=== PATIENT | female | born 1970 | race Caucasian/White ===

== ENCOUNTER 2022-02-27 12:44 | Outpatient (REF) | payer MEDICAID, SELFPAY ==
--- NOTE | ~2022-02-27 | XR_ITS ---
EXAMINATION: LUMBAR SPINE AND CERVICAL SPINE. CLINICAL INFORMATION: Cervical age or COMPARISON: None TECHNIQUE: Cervical spine 3 views. Lumbar spine 3 views. FINDINGS: Cervical spine: There is normal cervical lordosis. The vertebral heights and alignment is normal. There is loss of C3-C4, C4-C5 and C5-C6 disc heights with mild ventral and posterior cervical spondylosis. Rest the disc heights are normal. The craniovertebral junction and the C1-C2 alignment is normal. No visible acute fracture or dislocation seen. The prevertebral soft tissues are normal. XR/XR cervical spine 3V IMPRESSION: Degenerative disc changes C3-C4, C4-C5 and C5-C6 disc levels with ventral and dorsal spondylosis. No acute fracture or dislocation seen.
--- NOTE | ~2022-02-27 | XR_ITS ---
EXAMINATION: LUMBAR SPINE AND CERVICAL SPINE. CLINICAL INFORMATION: Cervical age or COMPARISON: None TECHNIQUE: Cervical spine 3 views. Lumbar spine 3 views. FINDINGS: Cervical spine: There is normal cervical lordosis. The vertebral heights and alignment is normal. There is loss of C3-C4, C4-C5 and C5-C6 disc heights with mild ventral and posterior cervical spondylosis. Rest the disc heights are normal. The craniovertebral junction and the C1-C2 alignment is normal. No visible acute fracture or dislocation seen. The prevertebral soft tissues are normal. XR/XR lumbar spine 2-3V IMPRESSION: Degenerative disc changes C3-C4, C4-C5 and C5-C6 disc levels with ventral and dorsal spondylosis. No acute fracture or dislocation seen.
== END 2022-02-27 12:45 | disposition home or self-care (01) ==
LOC: HO.XRAY 12:44
PROVIDERS: Absent Provider Family Medicine; PCP Family Medicine; Visit Provider Emergency Medicine
DX: M54.2 Cervicalgia (principal); M54.50 Low back pain, unspecified
CPT/HCPCS: 72040; 72100

== ENCOUNTER → 2022-03-30 11:27 | Outpatient (BNVA) | payer MEDICAID, SELFPAY | PROVIDERS: PCP Family Medicine; Visit Provider Internal Medicine | DX: M25.551 Pain in right hip (principal); M25.552 Pain in left hip; M25.561 Pain in right knee; M25.562 Pain in left knee; G89.29 Other chronic pain; Z86.19 Personal history of other infectious and parasitic diseases | CPT/HCPCS: 99202 ==

== ENCOUNTER 2022-12-23 04:47 | Emergency (ER) | payer MEDICAID, SELFPAY ==
--- NOTE | ~2022-12-23 | XR_ITS ---
EXAMINATION: XR RIBS, RIGHT CLINICAL INFORMATION: Pain COMPARISON: CTA chest 05/02/2019 TECHNIQUE: 3 views of the right ribs were obtained. FINDINGS: Lungs are clear. No consolidation, pneumothorax, or pleural effusion. The cardiomediastinal silhouette and pulmonary vasculature are normal. Osseous structures are unremarkable. Ribs are intact. No fractures are identified. XR/XR ribs RT min 3V w CXR1V IMPRESSION: Unremarkable examination.
[2022-12-23 05:07] VITALS: BP 126/72; PULSE 68; RESP 18; TEMP 36.5; O2SAT 98; BMI 26.6
[2022-12-23 05:48] LABS: Appearance Urine Clear; Color Urine Yellow; Glucose Urine UA Negative (Negative); Leukocyte Esterase Urine Negative (Negative); Nitrite Urine Negative (Negative); PH 6.5 (5.0-9.0); UMIC TRIGGER UACC YES; Urine Blood Trace (Negative); Urine Ketones Negative (Negative); Urine Protein Negative (Neg-Trace)
[2022-12-23 05:50] LABS: Bacteria Urine None Seen (None Seen); Hyaline Casts Urine 0-2 /LPF (0-2); RBC Urine 0-2 /HPF (0-2); Squamous Epithelial Cell Urine 0-2 /HPF (0-2); WBC Urine 0-5 /HPF (0-5)
[2022-12-23 07:17] LABS: MANUAL DIFF FLAG NO
[2022-12-23 07:18] LABS: Basophils Percent Auto 0.6 % (0-2); Eosinophils Absolute Auto 0.2 X10*3/uL (0.0-0.4); Eosinophils Percent Auto 4.7 % (0-4); Hematocrit 36.2 % (37.0-47.0); Imm Gran Abs Auto 0.02 X10*3/uL (0.00-0.03); Imm Gran Pct Auto 0.4 % (0.0-0.4); Lymphocytes Absolute Auto 1.5 X10*3/uL (1.2-4.9); Lymphocytes Percent Auto 30.3 % (20-40); Mean Corpuscular HGB Conc 33.1 g/dl (31.0-35.0); Mean Corpuscular Hemoglobin 30.8 pg (27.0-33.0); Mean Corpuscular Volume 93.1 fL (80.0-98.0); Mean Platelet Volume 10.1 fL (9.4-12.3); Monocytes Absolute Auto 0.5 X10*3/uL (0.1-1.2); Monocytes Percent Auto 10.2 % (2-11); Neutrophils Absolute Auto 2.6 x10*3/uL (2.0-8.3); Neutrophils Percent Auto 53.8 % (45-73); Platelet Count 170 X10*3/uL (160-400); Red Blood Count 3.89 X10*6/uL (4.20-5.50); Red Cell Distribution Width 11.2 % (11.0-16.0); White Blood Count 4.9 X10*3/uL (4.8-10.8)
[2022-12-23 07:35] LABS: Alanine Aminotransferase 17 U/L (0-31); Alkaline Phosphatase 49 U/L (39-117); Anion Gap 13 (12-20); Aspartate Amino Transferase 14 U/L (5-31); Bilirubin Total 0.6 mg/dL (0.0-1.0); Blood Urea Nitrogen 9 mg/dL (9-16); Calcium 9.3 mg/dL (8.4-10.2); Carbon Dioxide 27 mmol/L (22-29); Chloride 103 mmol/L (96-108); Creatinine Clr Calc Pharmacy 112.2; Estimated Glomerular Filt Rate > 60; Glucose Random 108 mg/dL (60-115); Potassium 3.9 mmol/L (3.3-5.1); Sodium 139 mmol/L (135-145); Total Protein 7.3 g/dL (6.5-8.0)
--- NOTE | 2022-12-23 08:07 | ECG_ITS ---
Test Reason : back pain Blood Pressure : / mmHG Vent. Rate : 061 BPM Atrial Rate : 061 BPM P-R Int : 170 ms QRS Dur : 092 ms QT Int : 444 ms P-R-T Axes : 007 049 036 degrees QTc Int : 446 ms Normal sinus rhythm Normal ECG When compared with ECG of 02-MAY-2019 13:44, No significant change was found Referred By: Madeline Kenney Electronically Signed By:ROBIN RODRIGUEZ MD
--- NOTE | 2022-12-23 08:15 | ED_ITS ---
HPI - Back Pain/Injury General Chief Complaint: Back Pain/Injury Stated Complaint: Lower right sided pain Time Seen by Provider: 12/23/22 08:01 Source: patient Mode of arrival: ambulatory Limitations: no limitations History of Present Illness HPI Narrative: 52 yo female with hx of Vit D deficiency, fibromyalgia, asthma, anemia here with c/o R flank and non pleuritic R posterior rib pain since Wednesday atraumatic. At this time no fevers, urinary symptoms, numbness, blood thinners, IVDA. States it hurts to move and walk. She has not had kidney stones in the past. No cough or shortness of breath. The patient did try a lidocaine patch without relief. No b/b incontnence no saddle anesthesia MD elicited complaint: other (R flank/posterior rib pain) Onset (ago): day(s) (3) Timing: constant Severity: moderate Similar Symptoms Previously: No Quality: aching, spasming and throbbing Location: right flank Radiation: none Exacerbating factors: movement Relieving factors: none Context: unknown Associated symptoms: denies other symptoms Treatments prior to arrival: other medications Work related injury: No Related Data Home Medications Medication Instructions Recorded Confirmed acetaminophen 650 mg/20.3 mL oral 650 mg PO QID PRN 03/30/22 solution albuterol sulfate 90 mcg/actuation 1 inh inhalation QID 03/30/22 aerosol inhaler (ProAir HFA) benzoyl peroxide 10 % topical 1 appl topical DAILY 03/30/22 cleanser cetirizine 10 mg capsule (Zyrtec) 10 mg PO DAILY PRN 03/30/22 cholecalciferol (vitamin D3) 50 50 mcg PO DAILY 03/30/22 mcg (2,000 unit) capsule clindamycin phosphate 1 % lotion 1 appl topical DAILY 03/30/22 cyclobenzaprine 10 mg tablet 10 mg PO BEDTIME 03/30/22 diclofenac sodium 1 % topical gel 2 g topical QID 03/30/22 duloxetine 60 mg capsule,delayed 60 mg PO DAILY 03/30/22 release (Cymbalta) fluticasone propionate 110 1 puff inhalation BID 03/30/22 mcg/actuation HFA aerosol inhaler gabapentin 100 mg capsule 100 mg PO DAILY 03/30/22 lidocaine 3.75 % topical cream 1 appl topical BID 03/30/22 metronidazole 500 mg tablet 500 mg PO BID 03/30/22 montelukast 10 mg tablet 10 mg PO DAILY 03/30/22 (Singulair) Previous Rx's Medication Instructions Recorded cyclobenzaprine 10 mg tablet 10 mg PO TID PRN muscle spasm #14 12/23/22 tabs Allergies Allergy/AdvReac Type Severity Reaction Status Date / Time shellfish derived Allergy Unknown SWELLING Verified 03/30/22 11:41 AND HIVES shrimp Allergy Unknown ITCHING/SWE Verified 03/30/22 11:41 LLING seafood Allergy Unknown Unknown Uncoded 03/30/22 11:41 Review of Systems Review of Systems: Constitutional : No Weight loss, No Fever, No Chills, ENT/Mouth : No Hearing loss, No Ear Pain, No Nasal Congestion, No Sinus Pain, No Hoarseness, No sore throat, No Rhinorrhea, No Swallowing Difficulty Cardiovascular : No Chest Pain, No SOB Respiratory : No Cough, No Dyspnea Gastrointestinal : No Nausea, No Vomiting, No Diarrhea, No abdominal Pain, No Hematochezia, No Melena Genitourinary : No Dysuria, No Urinary Frequency, No Hematuria, No Urinary Incontinence, Musculoskeletal : positive back pain Skin : No Skin Lesions, No rash Neuro : No Weakness, No Numbness, No Paresthesias, no loss of bowel or bladder incontinence, no saddle anesthesia [facility] Past Medical History Attestation statement: The following information was validated with the patient. Medical History Anemia Asthma Chronic arthralgias of knees and hips Depression H/o Lyme disease Social History Social History (Updated 12/23/22 @ 08:22 by Madeline Kenney DO) Patient Tobacco Use Status: Never used Tobacco Advance Directives: No Advance Directives Information Provided: No Physical Exam Vital Signs: Vital Signs: Last Vital Signs Temp 98.1 F 12/23/22 08:41 Pulse 68 12/23/22 08:41 Resp 16 12/23/22 08:41 BP 112/62 12/23/22 08:41 Pulse Ox 100 12/23/22 08:41 O2 Del Method Room Air 12/23/22 08:41 BMI result Body Mass Index 26.6 Appearance: Alert. Oriented X3. No acute distress. Eyes: Pupils equal, round and reactive to light. ENT: Pharynx normal. Neck: Normal inspection. Neck supple. CVS: Normal heart rate and rhythm. Pulses normal. Respiratory: No respiratory distress. Breath sounds normal. Abdomen: Soft and nontender. Back: ttp along R flank and R posterior ribs reproduces pain Skin: Skin warm and dry. Normal skin color. Normal skin turgor. Extremities: No lower extremity edema. No calf ttp Neuro: Oriented X 3. No motor deficit. No sensory deficit. Course Course Course Narrative: at this time feeling better workup negative stable for DC will treat with muscle relaxers and follow up with PCP normal xrays, UA, labs and no hydronephrosis Medications Administered Discontinued Medications Generic Name Dose Route Start Last Admin Trade Name Freq PRN Reason Stop Dose Admin Cyclobenzaprine HCl 10 mg 12/23/22 08:07 12/23/22 08:58 Cyclobenzaprine Hcl 10 Mg Tablet PO 12/23/22 08:08 10 mg ONCE ONE Administration Ketorolac Tromethamine 15 mg 12/23/22 08:07 12/23/22 08:59 Ketorolac Tromethamine 15 Mg/Ml Vial IVPUSH 12/23/22 08:08 15 mg ONCE ONE Administration Medical Decision Making Medical Decision Making [facility] Narrative: 52 yo female with hx of Vit D deficiency, fibromyalgia, asthma, anemia here with reproduceable R sided flank pain and rib pain - at this time it seems MSK in nature given hurts to touch and move. She has no risk factors for PE wells score is 0. She has no CP/SOB doubt ACS. will obtain basic labs, UA, xrays of R ribs and bedside US for hydronephrosis - IV toradol and flexeril. Differential Diagnosis Differential Diagnoses: The differential diagnosis associated with the presentation includes ureteral stones - less likely, MSK, strain, no hypoxia - not pleuritic no risk factors for PE - doubt VTE, Lab Data [facility] Lab Attestation statement: I reviewed the patient's lab results. 12/23/22 07:14 12/23/22 07:14 Labs: Lab Results 12/23/22 12/23/22 12/23/22 Range/Units 05:39 07:14 07:14 WBC 4.9 (4.8-10.8) X10*3/uL RBC 3.89 L (4.20-5.50) X10*6/uL Hgb 12.0 (12.0-16.0) g/dl Hct 36.2 L (37.0-47.0) % MCV 93.1 (80.0-98.0) fL MCH 30.8 (27.0-33.0) pg MCHC 33.1 (31.0-35.0) g/dl RDW 11.2 (11.0-16.0) % Plt Count 170 (160-400) X10*3/uL MPV 10.1 (9.4-12.3) fL Immature Gran % (Auto) 0.4 (0.0-0.4) % Neut % (Auto) 53.8 (45-73) % Lymph % (Auto) 30.3 (20-40) % [place] % (Auto) 10.2 (2-11) % Eos % (Auto) 4.7 H (0-4) % Baso % (Auto) 0.6 (0-2) % Lymph # (Auto) 1.5 (1.2-4.9) X10*3/uL [place] # (Auto) 0.5 (0.1-1.2) X10*3/uL Eos # (Auto) 0.2 (0.0-0.4) X10*3/uL Baso # (Auto) 0.0 (0.0-0.2) X10*3/uL Abs Immat Gran (auto) 0.02 (0.00-0.03) X10*3/uL Absolute Neuts (auto) 2.6 (2.0-8.3) x10*3/uL Absolute Nucleated RBC 0.000 (0.0-0.012) X10*3/uL Nucleated RBC % (auto) 0.0 (0.0-0.2) /100WBC Sodium 139 (135-145) mmol/L Potassium 3.9 (3.3-5.1) mmol/L Chloride 103 (96-108) mmol/L Carbon Dioxide 27 (22-29) mmol/L Anion Gap 13 (12-20) BUN 9 (9-16) mg/dL Creatinine 0.62 (0.5-1.4) mg/dL Estim Creat Clear Calc 112.2 Estimated GFR > 60 Random Glucose 108 (60-115) mg/dL Calcium 9.3 (8.4-10.2) mg/dL Total Bilirubin 0.6 (0.0-1.0) mg/dL AST 14 (5-31) U/L ALT 17 (0-31) U/L Alkaline Phosphatase 49 (39-117) U/L Total Protein 7.3 (6.5-8.0) g/dL Albumin 4.0 (3.5-5.0) g/dL Urine Color Yellow Urine Appearance Clear Urine pH 6.5 (5.0-9.0) Ur Specific [place] 1.010 (1.005-1.025) Urine Protein Negative (Neg-Trace) mg/dL Urine Glucose (UA) Negative (Negative) mg/dL Urine Ketones Negative (Negative) mg/dL Urine Blood Trace H (Negative) Urine Nitrite Negative (Negative) Ur Leukocyte Esterase Negative (Negative) Urine RBC 0-2 (0-2) /HPF Urine WBC 0-5 (0-5) /HPF Ur Squamous Epith Cells 0-2 (0-2) /HPF Urine Bacteria None Seen (None Seen) Hyaline Casts 0-2 (0-2) /LPF Independent Interpretation I performed an independent interpretation of an: EKG, Plain X-Ray (normal) and Ultrasound (no hydronephrosis) Interpretation: Rate: 61 Rhythm: NSR [place]: normal Normal P waves. Normal ALL. Normal QRS complex. ST T wave : normal no MIRIAM qTC: normal prior studies: normal The study has been interpreted contemporaneously by me. . Radiology Impression Discussion of test interpretation with radiology: I have reviewed the radiologist's reading. External Record Review External record reviewed: Office record Prescription Management I considered prescription management with: Other (flexeril ) Procedures Procedure Narrative Procedure Narrative: R renal bedside US - no hydronephrosis noted Discharge Plan Discharge Clinical Impression: Acute flank pain Patient Disposition: Home, Self-Care Instructions: Flank Pain (ED) Additional Instructions: return for fevers, vomiting, worsening pain, inability to eat or drink, pain with urination, no improvement in pain in the next few days. limit liting to 5lbs over 5 days. call your doctor for follow up of your pain. xrays normal, no signs of blockage of R kidney today, urine normal Prescriptions: New cyclobenzaprine 10 mg tablet 10 mg PO TID PRN (Reason: muscle spasm) Qty: 14 0RF No Action cyclobenzaprine 10 mg tablet 10 mg PO BEDTIME duloxetine [Cymbalta] 60 mg capsule,delayed release(DR/EC) 60 mg PO DAILY fluticasone propionate 110 mcg/actuation HFA aerosol inhaler 1 puff inhalation BID gabapentin 100 mg capsule 100 mg PO DAILY acetaminophen 650 mg/20.3 mL solution 650 mg PO QID PRN benzoyl peroxide 10 % cleanser 1 appl topical DAILY clindamycin phosphate 1 % lotion 1 appl topical DAILY lidocaine 3.75 % cream 1 appl topical BID metronidazole 500 mg tablet 500 mg PO BID montelukast [Singulair] 10 mg tablet 10 mg PO DAILY cholecalciferol (vitamin D3) 50 mcg (2,000 unit) capsule 50 mcg PO DAILY diclofenac sodium 1 % gel 2 g topical QID Rx Instructions: apply to single elbow, wrist or hand; for hand includes palm/fingers/back of hand Zyrtec 10 mg capsule 10 mg PO DAILY PRN albuterol sulfate [ProAir HFA] 90 mcg/actuation HFA aerosol inhaler 1 inh inhalation QID Referrals: [facility] [Primary Care Provider] - 1 day Stand Alone Forms: Work/School Release
[2022-12-23 08:41] VITALS: BP 112/62; PULSE 68; RESP 16; TEMP 36.7; O2SAT 100
[2022-12-23] MEDS: Cyclobenzaprine HCl 10 MG TABLET PO (08:58)
[2022-12-23] MEDS: Ketorolac Tromethamine 15 MG/ML VIAL IVPUSH (08:59)
--- NOTE | 2022-12-23 09:07 | PC.NURSE ---
PT alert and orient, calm, pleasant on approach, pain medication administered, pending effect.
== END 2022-12-23 10:23 | disposition home or self-care (01) ==
PROVIDERS: Emergency Provider Emergency Medicine
DX: R10.9 Unspecified abdominal pain (principal); R07.81 Pleurodynia; Z79.899 Other long term (current) drug therapy
CPT/HCPCS: 36415; 71101; 80053; 81001; 85025; 93005; 96374; 99284; 99285; J1885

== ENCOUNTER → 2022-12-23 08:07 | Outpatient (BNV) | payer MEDICAID, SELFPAY | PROVIDERS: Emergency Provider Emergency Medicine; Visit Provider Internal Medicine Cardiovascular Disease | DX: M54.9 Dorsalgia, unspecified (principal) | CPT/HCPCS: 93010 ==

== ENCOUNTER 2023-01-07 08:22 | Outpatient (AMB) | payer MEDICAID, SELFPAY ==
--- NOTE | 2023-01-07 08:24 | A.OFFVIS_ITS ---
Intake Vital Signs 01/07/23 08:27 Height 5 ft 6 in Weight 167 lb BMI 27.0 BP 118/62 Blood Pressure Location Lt brachial Position Sitting Respiration 18 Pulse 76 Pulse Source Pulse Oximeter Temp 97.6 F Temp Source Temporal Artery Scan Pulse Oximetry (%) 96 Oxygen Delivery Method Room Air Intake Visit Reasons: Joint Pain Intake Note: patient comes in for initial visit. Allergies shellfish derived Allergy (Unknown, Verified 01/07/23 08:30) SWELLING AND HIVES shrimp Allergy (Unknown, Verified 01/07/23 08:30) ITCHING/SWELLING seafood Allergy (Unknown, Uncoded 03/30/22 11:41) Unknown Medication List - Last Reconciled 01/07/23 by Juan Solomon MD acetaminophen 650 mg PO QID PRN albuterol sulfate 90 mcg/actuation (ProAir HFA) 1 inh inhalation QID benzoyl peroxide 10% 1 appl topical DAILY cetirizine (Zyrtec) 10 mg PO DAILY PRN cholecalciferol (vitamin D3) 50 mcg PO DAILY clindamycin phosphate 1% 1 appl topical DAILY cyclobenzaprine 10 mg PO TID PRN diclofenac sodium 1% 2 grams topical QID duloxetine (Cymbalta) 60 mg PO DAILY fluticasone propionate 110 mcg/actuation 1 puff inhalation BID gabapentin 100 mg PO DAILY lidocaine 3.75% 1 appl topical BID lidocaine 5% (Lidoderm) 1 patch topical DAILY montelukast (Singulair) 10 mg PO DAILY HPI HPI Comments History of Present Illness Details Patient presents for evaluation of widespread pains. She says they developed initially in her shoulders a year or so before she was diagnosed with Lyme disease in 2011. She describes a rash, rather large, on the left forearm and some chills with maybe some joint pain and swelling at the time. Within months after the treatment for Lyme disease she seemed to develope more widespread pains involving the neck, hands, elbows, lower back, middle back, legs, knees and feet. She does not really see any joint swelling. She has seen doctors about the neck where she has documented degenerative disc disease and osteoarthritis. Injections and surgery were discussed with her but she did not feel like she wanted to go with injections and the surgeons did not think she needed a neck operation. She was in the ER this spring with some sharp pain in the right lumbar region. She was treated for a painful rash on the right flank, thought to be shingles. She has had some physical therapy for her joint pain symptoms. 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 Her son is paid as a FIRE PROTECTION ENGINEER to take care of her. It does not sound like she is very physically active. She does walk around her apartment and does do some stretching every morning. Presently she also sees a psychotherapist. She is on Cymbalta 60 mg daily, gabapentin 100 mg t.i.d., and was recently prescribed cyclobenzaprine. She is having some night hot flashes and decrease in frequency of her menses so may be having menopause symptoms. [facility] Medical History (Updated 01/07/23 @ 09:16 by Juan Solomon MD) Anemia Asthma Chronic arthralgias of knees and hips Depression Fibromyalgia H/o Lyme disease Surgical History (Updated 12/31/22 @ 10:28 by Almaz Webber [facility]) No history of previous surgery Social History (Updated 12/23/22 @ 08:22 by Madeline Kenney DO) Patient Tobacco Use Status: Never used Tobacco Review of Systems Const Details: Fatigues easily with exercise and has more pain. A few lb weight gain over the last year so. Negative for appetite change, fever, chills, malaise Eyes Details: Intermittent headaches. Negative for vision change, dry eyes and dizziness ENT Details: Negative for hearing change, tinnitus, oral ulcer, nose bleeds and oral dryness. Card Details: Intermittent chest tightness and palpitations. She apparently has had a workup in Cardiology with ETT testing and echocardiogram. Recently negative for chest pain, edema and syncope Resp Details: Some exertional dyspnea at times attributed to asthma. Presently negative for SOB, cough and wheezing GI Details: Negative indigestion/heartburn, nausea, abdominal pain, bowel changes, diarrhea, constipation and bloody stool. Details: She is bothered by frequent urination. She was told she had irritable bladder problems. Negative for dysuria, hematuria, nocturia, decreased force/flow and genital discharge Skin/Breast Details: Recent shingles rash on the right flank. Some hair thinning over the last few years. She had acne when she was younger. Negative for itching, hives, Raynaud's symptoms, sun sensitivity, and skin cancer Neuro Details: Some numbness around the shingles rash. Some memory issues. Negative for epilepsy, palsy, stroke, changes in speech, tingling and weakness Psych Details: History of anxiety and depression stable with current treatment. Endo Details: Negative for polyuria and polydypsia [place]ville/Lymph Details: Negative for excessive bruising or bleeding. Physical Exam Vital Signs: Last Vital Signs Temp 97.6 F 01/07/23 08:27 Pulse 76 01/07/23 08:27 Resp 18 01/07/23 08:27 BP 118/62 01/07/23 08:27 Pulse Ox 96 01/07/23 08:27 Oxygen Delivery Method Room Air 01/07/23 08:27 BMI result Body Mass Index 27.0 APPEARANCE: Patient in no acute distress EYES no redness, pupils equal and reactive to light, eyelids normal EARS: External ear normal, canal clear and tympanic membrane normal. NOSE/SINUS: Airflow through both nares, no nasal discharge, no bleeding THROAT: Oral mucosa moist, no ulcerations NECK: No thyromegaly or masses, no adenopathy, trachea midline. HEART: Regulrar rhythm, S1-S2 heard, no murmurs, rubs or gallops. LUNG: Clear to percussion and auscultation ABD: Normal bowel sounds, no organomegaly, masses or tenderness. EXTREMITIES: No edema, no calf tenderness, normal peripheral pulses. NEURO: Oriented and alert x3. No focal weakness. Reflexes symmetric. Gait normal. SKIN: 2 slightly inflamed papules on the right flank. I do not really see any scalp lesions. There may be some slight thinning of the hair. No signs of Raynaud's phenomena. JOINT EXAM:.?? Cervical Spine: Mild pain with lateral flexion at 10 degrees or rotation at 30 degrees with some moderate posterior cervical muscle tenderness. Thoracic Spine:.? No scoliosis.? No tenderness on palpation. Lumbar Spine:.? Alignment normal.? Lumbar pain with flexion at 60 degrees with some paraspinal muscle tenderness, worse on the right Chest Wall:.? No tenderness, swelling, increased warmth or erythema. Hands:.? Normal pain-free range of motion. There is some slight tenderness at the base of the thumbs but there is no swelling appreciated there. Other joints are without tenderness, swelling, increased warmth or erythema. There is no thenar atrophy or sensory loss. Wrists:.? Right: Slight discomfort at the extremes of normal range of motion with some minimal dorsal tenderness but no swelling. Left: Normal pain-free range of motion with slight dorsal tenderness but no swelling, increased warmth or erythema. Elbows:. Normal pain-free range of motion without tenderness, swelling, increased warmth or erythema. Shoulders:.?? Mild to moderate pain with abduction 120 degrees or with extremes of rotation. No abductor weakness. There is mild anterior, subacromial and posterior tenderness. No abductor weakness or adenopathy. Hips:.? Full range of motion without pain. Hip bursa:.? No tenderness. Knees:.?? Normal pain-free range of motion with no crepitus. There is some slight medial compartment tenderness without effusion, soft tissue swelling, increased warmth or erythema.? Ankles:.? Normal pain-free range of motion without tenderness, swelling, increased warmth or erythema. Feet:.? There is bony enlargement and tenderness at the 1st MTP bilaterally. This is a bit more prominent on the right. There is also some mild hallux valgus deformity. There is no soft tissue swelling, redness or warmth. Tender points: Mild tenderness to digital palpation at the occiput, trapezius, second rib, lateral epicondyle, knees, greater trochanter and gluteal area bilaterally. ? Results Reviewed Results Reviewed: Laboratory Tests 03/15/19 12/23/22 12/23/22 11:30 07:14 07:14 WBC 4.9 Hgb 12.0 Creatinine 0.62 Iron 96 AST 14 ALT 17 [place] [address] XRay Report Signed with Li Patient: Alison Munoz MR#: [id number] : 1970 Acct:[id number] Age/Sex: 51 / F ADM Date: 02/27/[address]: Blair Jasso MD Ordering Physician: BLAIR JASSO MD Date of Service: 02/27/22 Procedure(s): XR lumbar spine 2-3V Accession Number(s): [id number] cc: BLAIR JASSO MD~ ADDENDUMExamination: Lumbar spine. Clinical information low back pain. COMPARISON: None. TECHNIQUE: 3 views lumbar spine. FINDINGS: There is normal lumbar lordosis. The vertebral heights, alignment and disc heights are normal. No visible acute fracture, dislocation or subluxation seen. No lytic process. The paravertebral soft tissues are normal. SI joints are symmetrical and unremarkable. IMPRESSION: Unremarkable lumbar spine exam. Addendum Dictated By: Kennedy Morrissey MD Addendum Signed By: <Electronically signed by Kennedy Morrissey MD in OV> 03/04/22 1612 DD/ TD/TT: / EXAMINATION: LUMBAR SPINE AND CERVICAL SPINE. CLINICAL INFORMATION: Cervical age or? COMPARISON: None? TECHNIQUE: Cervical spine 3 views. Lumbar spine 3 views.? FINDINGS: Cervical spine: There is normal cervical lordosis. The vertebral heights and alignment is normal. There is loss of C3-C4, C4-C5 and C5-C6 disc heights with mild ventral and posterior cervical spondylosis. Rest the disc heights are normal. The craniovertebral junction and the C1-C2 alignment is normal. No visible acute fracture or dislocation seen. The prevertebral soft tissues are normal.? XR/XR lumbar spine 2-3V IMPRESSION: Degenerative disc changes C3-C4, C4-C5 and C5-C6 disc levels with ventral and dorsal spondylosis. No acute fracture or dislocation seen. ? Dictated By: Kennedy Morrissey MD Signed By: <Electronically signed by Oneil Crouch [place] [address] XRay Report Signed with Addenda Patient: Alison Munoz MR#: [id number] : 1970 Acct:[id number] Age/Sex: 51 / F ADM Date: 02/27/[address]: Blair Jasso MD Ordering Physician: BLAIR JASSO MD Date of Service: 02/27/22 Procedure(s): XR cervical spine 3V Accession Number(s): [id number] cc: BLAIR JASSO MD~ In Assessment & Plan Assessment & Plan (1) Cervical osteoarthritis: Code(s): M47.812 - Spondylosis without myelopathy or radiculopathy, cervical region (2) Fibromyalgia: Code(s): M79.7 - Fibromyalgia Plan The patient has rather longstanding joint and muscle pains. On exam today there is no sign of an active inflammatory arthropathy. I suspect that has been the case for a number of years and with the multiple tender points this is likely a case of fibromyalgia. I do no think her symptoms are from Lyme Disease. Radiographs have documented some osteoarthritis in the cervical spine which of course is a separate process. She may also have some mild OA in the lumbar spine although the reading was normal. She can continue with PRN use of OTC analgesics such as acetaminophen and naproxen. I encouraged her to try to remain physically active. She tends to withdraw from physical activity which of course can lead to more deconditioning and poor functioning in physical activities. She should be doing stretching every day as well as gentle aerobic activities. I will check for some markers of inflammatory disease and a recheck on her TSH. Treatment options are limited. She is already on some Cymbalta and gabapentin. Given her disruption of sleep I think she could consider a nighttime increase in the gabapentin. This could be increased 100 mg every few weeks up to 600 mg in the evenings if needed. If sedation occurs at the higher doses it could be cut back to the previous dose. The gabapentin I think could be managed through the primary care office. I will not book her back for a follow-up unless joint swelling seems to occur. The. Orders: Orders Cyclic Citrullinated Peptide Today M47.812 - Spondylosis without myelopathy or radiculopathy, cervical region, M79.7 - Fibromyalgia C Reactive Protein Today M47.812 - Spondylosis without myelopathy or radiculopathy, cervical region, M79.7 - Fibromyalgia Rheumatoid Factor Today M47.812 - Spondylosis without myelopathy or radiculopathy, cervical region, M79.7 - Fibromyalgia Thyroid Stimulating Hormone Today M47.812 - Spondylosis without myelopathy or radiculopathy, cervical region, M79.7 - Fibromyalgia Erythrocyte Sedimentation Rate Today M47.812 - Spondylosis without myelopathy or radiculopathy, cervical region, M79.7 - Fibromyalgia MEI Reflex Titer and Pattern Today M47.812 - Spondylosis without myelopathy or radiculopathy, cervical region, M79.7 - Fibromyalgia Coding Level of Care Code New Pt Level 3 (62321) Diagnoses Cervical osteoarthritis M47.812 Fibromyalgia M79.7
[2023-01-07 08:27] VITALS: BP 118/62; PULSE 76; RESP 18; TEMP 36.4; O2SAT 96; BMI 27.0
== END 2023-01-07 09:22 | disposition home or self-care (01) ==
PROVIDERS: PCP Family Medicine; Visit Provider Internal Medicine Rheumatology
DX: M47.812 Spondylosis without myelopathy or radiculopathy, cervical region (principal); M79.7 Fibromyalgia
CPT/HCPCS: 99203

== ENCOUNTER → 2023-01-07 08:22 | Outpatient (BNVA) | payer MEDICAID, SELFPAY | PROVIDERS: PCP Family Medicine; Visit Provider Internal Medicine Rheumatology | DX: M47.812 Spondylosis without myelopathy or radiculopathy, cervical region (principal); M79.7 Fibromyalgia | CPT/HCPCS: 36415; 84443; 85652; 86038; 86140; 86200; 86431; 99202 ==

== ENCOUNTER 2023-01-07 09:37 | Outpatient (REF) | payer MEDICAID, SELFPAY ==
[2023-01-07 11:11] LABS: C Reactive Protein 0.18 mg/dL (< or = 0.50)
[2023-01-07 11:12] LABS: Rheumatoid Factor < 13.0 IU/mL (<15.0)
[2023-01-07 11:32] LABS: Thyroid Stimulating Hormone 1.49 uIU/mL (0.32-4.0)
[2023-01-07 11:33] LABS: Erythrocyte Sedimentation Rate 29 MM/HR (0-20)
[2023-01-12 12:13] LABS: Cyclic Citrullinated Peptide <16 UNITS
[2023-01-14 14:43] LABS: Anti Nuclear Antibody Screen NEGATIVE (NEGATIVE)
== END 2023-01-07 09:38 | disposition home or self-care (01) ==
LOC: HO.10HDL 09:37
PROVIDERS: Visit Provider Internal Medicine Rheumatology
DX: M47.812 Spondylosis without myelopathy or radiculopathy, cervical region (principal); M79.7 Fibromyalgia
CPT/HCPCS: 36415; 84443; 85652; 86038; 86140; 86200; 86431

== ENCOUNTER 2023-03-03 10:23 | Outpatient (REF) | payer MEDICAID, SELFPAY ==
--- NOTE | ~2023-03-03 | MM_ITS ---
EXAMINATION: MM SCREENING DIGITAL BREAST TOMOSYNTHESIS, BILATERAL CLINICAL INFORMATION: Screening. Asymptomatic. COMPARISON: Mammography: This study is compared with prior exams dating back to TECHNIQUE: Digital breast tomosynthesis is performed in both the craniocaudal and mediolateral oblique views along with computer-aided detection (CAD). Synthesized 2D images are generated from the tomosynthesis. FINDINGS: There are scattered areas of fibroglandular density (ACR BI-RADS breast composition Category b). There are no significant masses, abnormal calcifications, or other abnormalities. There are 2 tissue markers in the right breast from prior benign percutaneous biopsies. MM/MM tomosynthesis screening BI IMPRESSION: No mammographic evidence of malignancy. ASSESSMENT: BI-RADS BI-RADS 2 - Benign Findings RECOMMENDATION: Routine annual mammography screening. 1 year F/U This examination should not preclude the clinical evaluation of a suspicious palpable abnormality. This patient's information was entered into a reminder system with a target due date for their next mammogram.
== END 2023-03-03 10:24 | disposition home or self-care (01) ==
LOC: HO.MAMMO 10:23
PROVIDERS: PCP Family Medicine; Visit Provider Family Medicine
DX: Z12.31 Encounter for screening mammogram for malignant neoplasm of breast (principal)
CPT/HCPCS: 77063; 77067

== ENCOUNTER → 2023-03-03 10:45 | Outpatient (BNV) | payer MEDICAID, SELFPAY | PROVIDERS: PCP Family Medicine; Visit Provider Radiology Diagnostic Radiology | DX: Z12.31 Encounter for screening mammogram for malignant neoplasm of breast (principal) | CPT/HCPCS: 77063; 77067 ==

== ENCOUNTER 2023-06-17 08:39 | Outpatient (REF) | payer MEDICAID, SELFPAY ==
--- NOTE | ~2023-06-17 | XR_ITS ---
EXAMINATION: XR BILATERAL KNEES CLINICAL INFORMATION: Bilateral knee pain, no injury. She feels cracking and popping in her knees. COMPARISON: None available. TECHNIQUE: 3 views of the left knee. 5 views of the right knee. FINDINGS: Right Knee: Mild medial joint space narrowing. Trace joint effusion. Left Knee: Trace joint effusion. Mild medial joint space narrowing. XR/XR knee RT 3V IMPRESSION: Mild degenerative changes in the bilateral knees.
--- NOTE | ~2023-06-17 | XR_ITS ---
EXAMINATION: XR BILATERAL KNEES CLINICAL INFORMATION: Bilateral knee pain, no injury. She feels cracking and popping in her knees. COMPARISON: None available. TECHNIQUE: 3 views of the left knee. 5 views of the right knee. FINDINGS: Right Knee: Mild medial joint space narrowing. Trace joint effusion. Left Knee: Trace joint effusion. Mild medial joint space narrowing. XR/XR knee LT 3V IMPRESSION: Mild degenerative changes in the bilateral knees.
[2023-06-17 11:43] LABS: Cholesterol 147 mg/dL (<200); HDL Cholesterol 57 mg/dL (>40); LDL Cholesterol Calculated 81 mg/dL (<100); Triglycerides 47 mg/dL (<150)
[2023-06-17 11:51] LABS: Alanine Aminotransferase 13 U/L (0-31); Albumin Level 3.9 g/dL (3.5-5.0); Alkaline Phosphatase 47 U/L (39-117); Anion Gap 10 (12-20); Aspartate Amino Transferase 15 U/L (5-31); Bilirubin Total 0.3 mg/dL (0.0-1.0); Blood Urea Nitrogen 15 mg/dL (9-16); Calcium 8.8 mg/dL (8.4-10.2); Carbon Dioxide 31 mmol/L (22-29); Chloride 104 mmol/L (96-108); Estimated Glomerular Filt Rate > 60; Glucose Random 85 mg/dL (60-115); Potassium 3.7 mmol/L (3.3-5.1); Sodium 141 mmol/L (135-145); Total Protein 7.4 g/dL (6.5-8.0)
[2023-06-17 12:13] LABS: TSH reflex Free T4 1.87 uIU/mL (0.32-4.0)
[2023-06-17 12:23] LABS: Folate 6.9 ng/mL (> or = 4.0)
[2023-06-17 12:25] LABS: Vitamin B12 410 pg/mL (200-900)
[2023-06-17 12:28] LABS: Reflex LDLD? No
== END 2023-06-17 08:40 | disposition home or self-care (01) ==
LOC: HO.HHCL 08:39
PROVIDERS: Visit Provider Family Medicine
DX: M25.561 Pain in right knee (principal); M25.562 Pain in left knee; G89.29 Other chronic pain; M79.7 Fibromyalgia; E66.3 Overweight; L65.9 Nonscarring hair loss, unspecified; Z86.19 Personal history of other infectious and parasitic diseases
CPT/HCPCS: 36415; 73562; 80053; 80061; 82607; 82746; 84443

== ENCOUNTER 2023-07-06 17:20 | Outpatient (REF) | payer MEDICAID, SELFPAY ==
[2023-07-06 17:34] LABS: Appearance Urine Clear; Color Urine Yellow; Glucose Urine UA Negative (Negative); Leukocyte Esterase Urine Small (1+) (Negative); Nitrite Urine Negative (Negative); PH 6.5 (5.0-9.0); UMIC TRIGGER UA YES; Urine Blood Negative (Negative); Urine Ketones Negative (Negative); Urine Protein Trace mg/dL (Neg-Trace)
[2023-07-06 17:52] LABS: Bacteria Urine Trace (None Seen); Hyaline Casts Urine 0-2 /LPF (0-2); RBC Urine 0-2 /HPF (0-2)
[2023-07-07 02:13] LABS: CT PCR NOT DETECTED (Not Detect.); NG PCR NOT DETECTED (Not Detect.)
[2023-07-08 13:42] LABS: BV Int Neg Control Negative (Negative); BV Int Pos Control Positive (Positive)
== END 2023-07-06 17:21 | disposition home or self-care (01) ==
LOC: HO.HHCLNP 17:20
PROVIDERS: Visit Provider Family Medicine
DX: N89.8 Other specified noninflammatory disorders of vagina (principal); R30.0 Dysuria
CPT/HCPCS: 0353U; 81001; 87480; 87510; 87660

== ENCOUNTER 2023-11-16 09:50 | Outpatient (REF) | payer MEDICARE, MEDICAID, SELFPAY ==
[2023-11-16 12:49] LABS: Vitamin D 25-OH Total 24.3 ng/mL (>30)
[2023-11-17 03:34] LABS: HBc Num1 0.17 S/CO (0.00-0.79); HBsAGNum1 0.26 S/CO (0.00-0.99); HIV AB/AG Nonreactive (Nonreactive); HIV Num 1 0.05 S/CO (0.00-0.99); Hepatitis B Core Antibody Nonreactive (Nonreactive); Hepatitis B Surface Antigen Negative (Negative); ~HepC Num1 0.17 S/CO (0.00-0.79); ~Hepatitis B Surface Antibody NONREACTIVE (Nonreactive); ~Hepatitis C Antibody Nonreactive (Nonreactive)
[2023-11-17 03:35] LABS: Hepatitis A Antibody IgG REACTIVE (Nonreactive); ~Hepatitis A Antibody IgG 1.15 S/CO (0.00-0.99)
== END 2023-11-16 09:51 | disposition home or self-care (01) ==
LOC: HO.HHCL 09:50
PROVIDERS: Visit Provider Family Medicine
DX: Z01.84 Encounter for antibody response examination (principal); Z11.3 Encounter for screening for infections with a predominantly sexual mode of transmission; Z11.4 Encounter for screening for human immunodeficiency virus [HIV]; E55.9 Vitamin D deficiency, unspecified
CPT/HCPCS: 36415; 82306; 86704; 86706; 86708; 86803; 87340; 87389

== ENCOUNTER 2024-04-05 11:38 | Outpatient (REF) | payer OTHER, SELFPAY ==
--- NOTE | ~2024-04-05 | XR_ITS ---
EXAMINATION: XR SHOULDER, LEFT CLINICAL INFORMATION: Left shoulder pain COMPARISON: None available. TECHNIQUE: AP external rotation, Grashey, scapular Y, and axillary views of the left shoulder. FINDINGS: No evidence for acute fracture or dislocation. There is left glenohumeral joint space narrowing. No erosive process or abnormal soft tissue calcification seen. XR/XR shoulder LT min 2V IMPRESSION: No evidence for acute process. Left glenohumeral joint space narrowing. Electronically signed by: Galo Stacy MD 04/05/2024 04:21 PM EDT
== END 2024-04-05 11:39 | disposition home or self-care (01) ==
LOC: HO.HHCX 11:38
PROVIDERS: Visit Provider Family Medicine
DX: M25.512 Pain in left shoulder (principal); G89.29 Other chronic pain
CPT/HCPCS: 73030

== ENCOUNTER 2024-06-30 07:21 | Outpatient (REF) | payer OTHER, SELFPAY ==
--- NOTE | ~2024-06-30 | MR_ITS ---
CLINICAL HISTORY: chroninc pain severely limited rom MR left shoulder without gadolinium Comparison: None Findings: No acute fractures. No pathologic bone lesions. No significant arthritic changes. Type II acromion. No effusion. The supraspinatus, infraspinatus, subscapularis, and teres minor tendons are intact. The long head of biceps is intact. There is loss of visualization of the inferior glenohumeral ligament. Glenoid labrum is intact. IMPRESSION: 1. Inferior glenohumeral ligament tear. This document has been electronically signed by: August Gao MD on 07/01/2024 08:46:48
== END 2024-06-30 07:22 | disposition home or self-care (01) ==
LOC: HO.MRI 07:21
PROVIDERS: PCP Family Medicine; Visit Provider Family Medicine
DX: Z12.31 Encounter for screening mammogram for malignant neoplasm of breast (principal); M25.512 Pain in left shoulder
CPT/HCPCS: 73221; 77063; 77067

== ENCOUNTER 2024-07-14 10:26 | Outpatient (REF) | payer OTHER, SELFPAY ==
--- OUTSIDE RECORDS SUMMARY | 2024-07-14 11:08 | XMS_ITS | Encounter Summary ---
Author Organization [facility] Address [address] [place] [address] Care Team Providers Care Lighter Name Role Phone Gracy Reynolds MD Primary Care Provider [phone] Encounter Details Date Type Department Care Team (Late st Contact Info) Description 10/16/2022 Orders Only [facility] [address] [place] [address] [phone] Gracy Reynolds MD [address] [place] [address] [phone] Mixed stress and urge urinary incontinence (Primary Dx) Social History Tobacco Use Types Packs/Day Years Used Date Smoking Tobacco: Never Passive Smoke Exposure: Never Smokeless Tobacco: Never Depression Answer Date Recorded Patient Health Questionnaire-9 Score 17 09/15/2022 Depression Answer Date Recorded Patient Health Questionnaire-2 Score 6 09/15/2022 Comments Unknown Sex and Gender Information Value Date Recorded Sex Assigned at Female 04/13/2022 10:18 AM EDT Legal Sex Female 10:18 AM EDT Gender Identity Female 04/13/2022 10:18 AM EDT Sexual Orientation Straight 04/13/2022 10 :18 AM EDT COVID-19 Exposure Response Date Recorded In the last 10 days, have yo u been in contact with someone who was confirmed or suspected to have Coronavirus/COVID-19? No / Unsure 10/15/2022 8:52 AM EDT documented as of this encounter Plan of Treatment Upcoming Encounters Date Type Department Care Team (Late Contact Info) Description 08/16/2024 9:30 AM EST Office Visit [facility] [address] [place] [phone] Gracy Reynolds MD [address] [place] [address] documented as of this encounter Visit Diagnoses Diagnosis Mixed stress and urge urinary incontinence- Primary Mixed incontinence urge and stress (male)(female) documented in this encounter Additional Health Concerns Assessment Noted Time PHQ-9 Depression Total Score: 17 09/15/ 023 3:11 PM EDT documented as of this encounter Care Teams Lighter Relationship Specialty Start Date End Date Gracy Reynolds MD [address] [place] [address] PCP - General Family Medicine 01/27/22 Osmel Conn Tax AuditorHandbook Writer 01/04/24 documented as of this encounter
--- OUTSIDE RECORDS SUMMARY | 2024-07-14 11:08 | XMS_ITS | Encounter Summary ---
Author Organization [employer] [facility] Address [address] [place] [address] Care Team Providers Care Lead Manufacturing Engineering Tech Name Role Phone Gracy Reynolds MD Primary Care Provider [phone] Reason for Visit * Reason Onset Date Comments Nurse Triage 12/25/2022 Encounter Details Date Type Department Care Team ([facility] st Contact Info) Description 12/25/2022 Telephone [facility] [address], [place] [phone] Gracy Reynolds MD [address] [place] [address] Nurse Triage Social History Tobacco Use Types Packs/Day Years [...] suspected to have Coronavirus/COVID-19? No / Unsure 12/17/2022 8:55 AM EDT documented as of this encounter Miscellaneous Notes * Telephone Encounter - Yaz Dalal RN - 12/25/2022 1:13 PM EDT Triage call Pt reports being seen in [facility] 12/23 for backpain. Now Pt reports a numbness of the right side of abdomen that is weird . This numbness is not effecting mobility. Pt is able to walk, speech is good, use of upper extremities is good. Pt concerned about this abdominal numbness . Advised Pt to seek evaluation in Ed and to call for follow up apt. Pt agrees with this plan. Protocol Used: Neurologic Deficit (Adult) Protocol-Based Disposition: See in Office or Video Visit Today Video visit not offered Positive Triage Question: * Patient wants to be seen * All higher-acuity triage questions were negative Care Advice Discussed: * Reasons To Call Back - Symptoms do not go away within 10 to 15 minutes - You become worse * Telephone Encounter - Sierra Brown - 12/25/2022 1:00 PM EDT Symptom: Numbness Outcome: Transfer to a nurse or provider NOW! Reason: Numbness on only one side of body or face that started within the past 24 hours The caller accepted this outcome documented in this encounter Plan of Treatment Upcoming Encounters Date Type Department Care Team (Late st Contact Info) Description 08/16/2024 9:30 AM EST Office Visit [facility] [address] [place] [address] Gracy Reynolds MD [address] [place] [address] documented as of this encounter Visit Diagnoses Not on filedocumented in this encounter Additional Health Concerns Assessment Noted Time PHQ-9 Depression Total Score: 17 09/15/ 023 3:11 PM EDT documented as of this encounter Care Teams Lead Manufacturing Engineering Tech Relationship Specialty Start Date End Date Gracy Reynolds MD [address] [place] [id number] PCP - General Family Medicine 01/27/22 Osmel Conn Sky CapElevator Service Mechanic 01/04/24 documented as of this encounter
--- OUTSIDE RECORDS SUMMARY | 2024-07-14 11:08 | XMS_ITS | Encounter Summary ---
Author Organization [employer] Address [address] [place] [address] 7t [place] [address] Care Team Providers Care Dishing Machine Operator Name Role Phone Gracy Reynolds MD Primary Care Provider [phone] Reason for Referral * Consultation (Routine) - Authorized Specialty Diagnoses / Procedures Referred By Rogelio rogers Referred To Contact Orthopaedic Surgery Diagnoses Chronic left shoulder pain Gracy Reynolds MD [address] [place] [address] Phone: tel: fax: [facility] [address] [place] [address] Phone: tel: Referral ID Status Reason Start Date Expiration Date Visits Requested Visits Authorized [id number] Authorized Specialty Services Required 07/04/2024 07/04/2025 1 1 Encounter Details Date Type Department Care Team (Late st Contact Info) Description 07/04/2024 Orders Only [facility] [address] [place] [address] Gracy Reynolds MD [address] [place], [place] [phone] Chronic left shoulder pain (Primary Dx) Social History Tobacco Use Types Packs/Day Years Used Date Smoking Tobacco: Never Passive Smoke Exposure: Never Smokeless Tobacco: Never Alcohol Use Standard Drinks/Week Comments Never 0 (1 standard drink = 0.6 oz pur e alcohol) Depression Answer Date Recorded Patient Health Questionnaire-9 Score 0 11/16/2023 Patient Health Questionnaire-9 Score 0 11/16/2023 Last PHQ-9: Questionnaire Data Not on file 0 11/16/2023 Housing Stability Answer Date Recorded What is your housing situation today? I have francy hernandez 11/16/[address] you li ve. Do you have problems with any of the following? None of the above 11/16/2023 Food Insecurity Answer Date Recorded Within the past 12 months, y ou worried that your food would run out before you got money to buy more: Never True 11/16/2023 Within the past 12 months,th e food you bought just didn't last and you didn't have enough money to get more: Never True 09/2023 Transportation Answer Date Recorded In the past 12 months, has l ack of transportation kept you from medical appts, meetings, work or from getting things needed for daily living? No 11/16/2023 Utilities Answer Date Recorded In the past 12 months, has t he electric, gas, oil or water company threatened to shut off services in your home? No 11/16/2023 Depression Answer Date Recorded Patient Health Questionnaire-2 Score 0 11/16/2023 Comments Unknown Sex and Gender Information Value Date Recorded Sex Assigned at Female 04/13/2022 10:18 AM EDT Legal Sex Female 10:18 AM EDT Gender Identity Female 04/13/2022 10:18 AM EDT Sexual Orientation Straight 04/13/2022 10 :18 AM EDT documented as of this encounter Plan of Treatment Upcoming Encounters Date Type Department Care Team (Late st Contact Info) Description 08/16/2024 9:30 AM EST Office Visit [facility] [address] [place] [address] Gracy Reynolds MD [address] [place] [address] Scheduled Referrals Name Type Priority Associated Diagnoses Order Schedule Referral to Orthopaedic Surgery Outpatient Referral Routine Chronic left shoulder pain Expected: 07/04/2024 (Approximate), Expires: 07/04/2025 documented as of this encounter Visit Diagnoses Diagnosis Chronic left shoulder pain- Primary Pain in joint, shoulder region documented in this encounter Additional Health Concerns Assessment Noted Time PHQ-9 Depression Total Score: 0 11/16/19 24 9:15 AM EDT documented as of this encounter Care Teams Dishing Machine Operator Relationship Specialty Start Date End Date Gracy Reynolds MD [address] [place] [address] PCP - General Family Medicine 01/27/22 Osmel Conn Scraper Loader OperatorLift Mechanic 01/04/24 documented as of this encounter
--- OUTSIDE RECORDS SUMMARY | 2024-07-14 11:08 | XMS_ITS | Encounter Summary ---
Author Organization [facility] [facility] Address [address] [place] [address] 7t [place] [address] Care Team Providers Care Wrapper Cashier Name Role Phone Gracy Reynolds MD Primary Care Provider Encounter Details Date Type Department Care Team (Late st Contact Info) Description 12/03/2022 Orders Only [facility] [address] [place] [address] [phone] Jana Hooks LPN Social History Tobacco Use Types Packs/Day Years [...] suspected to have Coronavirus/COVID-19? No / Unsure 11/24/2022 8:51 AM EDT documented as of this encounter Plan of Treatment Upcoming Encounters Date Type Department Care Team (Late st Contact Info) Description 08/16/2024 9:30 AM EST Office Visit [facility] [address] [place] [address] [phone] Gracy Reynolds MD [address] [place] [address] [phone] documented as of this encounter Visit Diagnoses Not on filedocumented in this encounter Additional Health Concerns Assessment Noted Time PHQ-9 Depression Total Score: 17 023 3:11 PM EDT documented as of this encounter Care Teams Wrapper Cashier Relationship Specialty Start Date End Date Gracy Reynolds MD [address] [place] [address] PCP - General Family Medicine 01/27/22 Osmel Conn [employer] PrincipalEngineer Conductor 01/04/24 documented as of this encounter
--- OUTSIDE RECORDS SUMMARY | 2024-07-14 11:08 | XMS_ITS | Clinical Summary ---
Author Organization [facility] Address [address] [place] [address] Care Team Providers Care Hospital Superintendent Name Role Phone Unavailable Primary Care Provider Unavailabl e Source Comments PLEASE NOTE, if this patient is a minor, it may be UNLAWFUL to discuss sensitive information that is contained in these records (such as FAMILY PLANNING, MENTAL HEALTH or SUBSTANCE ABUSE) with the minor patient's parent or other person without the patient's specific authorization.[facility] Immunizations Name Administration Dates Next Due Moderna COVID-19 Vaccine, re d cap blue label, 12+ Primary Series 10/23/2020,09/25/2020 Social History Tobacco Use Types Packs/Day Years Used Date Smoking Tobacco: Never Assessed Social Connections Answer Date Recorded Social Connections and Isolation 0 11/12/2023 Financial Resource Strain Answer Date R ecorded Financial Resource Strain 0 2023 Stress Answer Date Recorded Stress 0 11/12/2023 Physical Activity Answer Date Recorded Physical Activity 0 11/12/2023 Food Insecurity Answer Date Recorded Food 0 11/12/2023 Transportation Needs Answer Date Record ed Transportation 0 11/12/2023 Housing Stability Answer Date Recorded Housing 0 11/12/2023 Safety and Environment Answer Date Gorge rded Safety 0 11/12/2023 Utilities Answer Date Recorded Utilities 0 11/12/2023 Employment Answer Date Recorded Employment 0 11/12/2023 Comments Unknown Sex and Gender Information Value Date Recorded Sex Assigned at Not on file Legal Sex Female 6:03 AM PDT Gender Identity Not on file Sexual Orientation Not on file Plan of Treatment Health Maintenance Due Date Last Done Comments Diabetes Screening 1972 HPV Screening 1972 Hepatitis C Screening 1972 Lipid Screening 1972 Pap + HPV 1972 Tobacco Screening 1972 HIV Screening 1987 Hypertension Screening (#1) 1990 Imm-Hepatitis B (1 of 3 - 19 + 3-dose series) 1991 Cervical Cancer Screening 1993 Pap Smear 1993 Breast Cancer Screening (Mammogram) 2012 CT Colonography 2017 Colonoscopy 2017 Colorectal Cancer Screening 2017 FIT/gFOBT 2017 Fecal DNA 2017 Flexible Sigmoidoscopy 2017 Imm-DTaP/Tdap/Td (2 - Td or Tdap) 07/10/2021 012, 08/24/2008 Imm-Zoster, Recombinant (1 of 2) 2022 Emz-MMGGK-89 ( season) 2024 021, 09/25/2020 Imm-Influenza (#1) 2024 05/03/2020, 0 03/09/2019, 05/04/2013, Additional history exists Alcohol and Drug Screen 06/14/2024 Depression Annual Screen 06/14/2024 Cervical Ablation/Cold-Knife Conization Discontinued Cervical Cryotherapy Discontinued Colposcopy Discontinued Endometrial Biopsy Discontinued Excision/Leep Discontinued HPV Genotyping Discontinued Vaginal Pap Discontinued Vulvoscopy Discontinued Insurance [place] MEDICAID
--- OUTSIDE RECORDS SUMMARY | 2024-07-14 11:08 | XMS_ITS | Encounter Summary ---
Author Organization [employer] Address [address] [facility] 7t [place] [address] Care Team Providers Care Java Software Name Role Phone Gracy Reynolds MD Primary Care Provider [phone] Reason for Visit * Reason Onset Date Comments Nurse Triage 07/04/2024 Encounter Details Date Type Department Care Team ([facility] st Contact Info) Description 07/04/2024 Telephone [facility] [address] [place], [place] [phone] Gracy Reynolds MD [address] [place] [address] Nurse Triage Social History Tobacco Use Types [...] encounter Miscellaneous Notes * Telephone Encounter - Blupippa Munoz - 07/04/2024 12:45 PM EST Symptom: Shoulder Pain - Not From Injury Outcome: Schedule an urgent appointment (within 1 hour) or talk to a nurse or provider soon Reason: Can't use the shoulder normally Please contact pt at [phone]. documented in this encounter Plan of Treatment Upcoming Encounters Date Type Department Care Team (Late st Contact Info) Description 08/16/2024 9:30 AM EST Office Visit [facility] [address] [place] [address] Gracy Reynolds MD [address] [place] [address] documented as of this encounter Visit Diagnoses Not on filedocumented in this encounter Additional Health Concerns Assessment Noted Time PHQ-9 Depression Total Score: 0 11/16/19 24 9:15 AM EDT documented as of this encounter Care Teams Java Software Relationship Specialty Start Date End Date Gracy Reynolds MD [address] [place] [address] PCP - General Family Medicine 01/27/22 Osmel Conn Claim AdministratorRecreational Sports Director 01/04/24 documented as of this encounter
--- OUTSIDE RECORDS SUMMARY | 2024-07-14 11:08 | XMS_ITS | Encounter Summary ---
Author Organization [employer] Address [address] [facility] 7t [place] [address] Care Team Providers Care Corridor Redevelopment Manager Name Role Phone Gracy Reyonlds MD Primary Care Provider [phone] Reason for Visit * Reason Onset Date Comments Call Back Request 07/04/2024 Encounter Details Date Type Department Care Team ([facility] Contact Info) Description 07/04/2024 Telephone [facility] [address] [place], [place] [phone] Gracy Reynolds MD [address] [place] [address] Call Back Request Social History Tobacco Use Types Packs/Day Years [...] encounter Miscellaneous Notes * Telephone Encounter - Ivelisse Merritt RN - 07/07/2024 10:55 AM EST Telephone call to pt to advise that PCP sent pain medication, meloxicam, to pharmacy on file. Pt states that the pain is unbearable, that she cannot sleep and cannot take this pain until my appt in August. Clarified with pt who stated she has an appt with the ortho surgeon in August. Advised her totry taking the pain medication that PCP prescribed and see if that helps and if not, to return to Walk in Clinic or ED. Reviewed hours of [facility] and also on-call nurse at [facility]. Pt asked what can ED do for me, it's just a torn ligament? Advised her unsure what the plan of care would be but if her painis so severe that it's important to seek reevaluation to see if anything has changed. Pt states leila not want to be on pain pills for 2 months until appt. She said she was on cancellation list but she expressed frustration and wants to be seen soon. She asked if referral could be made elsewherefor a sooner appt. Nurse advised her it is unclear whether this is possible based on her insurance and the fact that referral was already made but message can be sent to PCP. Pt verbalized understanding. -- Patient stated that she does not like take a pill. If she wants to take one, meloxicam is sent. * Telephone Encounter - Ivelisse Merritt RN - 07/04/2024 1:58 PM EST Telephone call to pt to advise that MRI results show glenohumeral ligament tear and that PCP made referral to orthopedic surgeon. Informed her that referral info would be mailed and that ortho officewill call in 1-2 weeks to schedule appt. Pt verbalized understanding and said that her shoulder pain is worse than when she saw PCP on 06/19/24, rated it 8/10 and said she is having trouble sleeping. Pt denies taking any medications for pain over the counter I don't take anything not prescribed . Advised her that message would be sent toPCP to advise on pain management/plan of care until ortho appt. Pt in agreement with plan. * Telephone Encounter - Ivelisse Merritt RN - 07/04/2024 12:32 PM EST ----- Message from Gracy Reynolds MD sent at 07/04/2024 12:20 PM EST ----- Please inform patient that MRI showed inferior glenohumeral ligament tear. Recommend seeing an orthopedist. I am sending a referral. * Telephone Encounter - Kendal Rivera - 07/04/2024 9:10 AM EST Tc from pt requesting a callback for an appointment in regards MRI to left shoulder as she can't hold pain and will like to know what steps PCP will be taken with her . [phone] documented in this encounter Plan of Treatment Upcoming Encounters Date Type Department Care Team (Late st Contact Info) Description 08/16/2024 9:30 AM EST Office Visit [facility] [address] [place] [address] Gracy Reynolds MD [address] [place] [address] documented as of this encounter Visit Diagnoses Not on filedocumented in this encounter Additional Health Concerns Assessment Noted Time PHQ-9 Depression Total Score: 0 11/16/19 9:15 AM EDT documented as of this encounter Care Teams Corridor Redevelopment Manager Relationship Specialty Start Date End Date Gracy Reynolds MD [address] [place] [address] PCP - General Family Medicine 01/27/22 Osmel Conn Senior Courtroom ClerkPathology Technician 01/04/24 documented as of this encounter
--- OUTSIDE RECORDS SUMMARY | 2024-07-14 11:08 | XMS_ITS | Encounter Summary ---
Author Organization [employer] Address [address] [facility] 7t [place] [address] Care Team Providers Care Diesel Technician Mechanic Name Role Phone Gracy Reynolds MD Primary Care Provider [phone] Reason for Visit * Reason Onset Date Comments ER Follow-up 12/24/2022 Encounter Details Date Type Department Care Team ([facility] st Contact Info) Description 12/24/2022 Telephone [facility] [address] [place], [place] [phone] Gracy Reynolds MD [address] [place] [address] ER Follow-up Social History Tobacco Use Types Packs/Day Years [...] encounter Miscellaneous Notes * Telephone Encounter - Sherrie Shah RN - 12/24/2022 11:03 AM EDT called pt to triage, spoke to pt. pt states seen ER at [facility] on 12/23 for right mid back pain and palpitations. pt states all studies done were negative and she was recommended to see PCP in follow up. pt states given muscle relaxers which help some, but nothing for pain. pt denies numbness, known injury, fevers, or other associated symptoms. given appt next Saturday 12/30 at 9:00 with Lizzeth Randle for exam and recheck. advised home care: rest, ice, heat, medications, and call back as needed. Protocol Used: Back Pain (Adult) Protocol-Based Disposition: See in Office or Video Visit within 2 Weeks Video visit not offered Positive Triage Question: * Back pain is a chronic symptom (recurrent or ongoing AND lasting > 4 weeks) * All higher-acuity triage questions were negative Care Advice Discussed: * Reassurance and Education - Back Pain * Cold or Heat * Sleep * Activity * Pain Medicines * Reasons To Call Back - Fever occurs - Numbness or weakness occurs, or bowel/bladder problems - Pain begins to shoot into the leg - Pain persists over 2 weeks - Pain becomes worse - You become worse * Telephone Encounter - Janna Griffith - 12/24/2022 10:32 AM EDT Patient calling to report ED visit on 12/23/22 at [facility]. Reports to be seen for back pain and neck pain, states still has pain. Patient advised will forward to team nurse for follow up. Please contact at [phone] documented in this encounter Plan of Treatment Upcoming Encounters Date Type Department Care Team (Late st Contact Info) Description 08/16/2024 9:30 AM EST Office Visit [facility] [address] [place] [phone] Gracy Reynolds MD [address] [place] [address] documented as of this encounter Visit Diagnoses Not on filedocumented in this encounter Additional Health Concerns Assessment Noted Time PHQ-9 Depression Total Score: 17 023 3:11 PM EDT documented as of this encounter Care Teams Diesel Technician Mechanic Relationship Specialty Start Date End Date Gracy Reynolds MD [address] [place] [address] PCP - General Family Medicine 01/27/22 Osmel Conn Home Health CaregiverSupervisor Research Shop 01/04/24 documented as of this encounter
--- OUTSIDE RECORDS SUMMARY | 2024-07-14 11:08 | XMS_ITS | Encounter Summary ---
Author Organization [facility] Address [address] [place] [address] Care Team Providers Care Records Analyst Name Role Phone Gracy Reynolds Primary Care Provider Unavailabl e Community, Pcp Primary Care Provider Unavailabl e Encounter Details Date Type Department Care Team Description 12/04/2015 [facility] [address] [place] [address] Abstract, Provider Social History Tobacco Use Types Packs/Day Years Used Date Smoking Tobacco: Never Assessed Sex Assigned at Date Recorded Not on file documented as of this encounter Plan of Treatment Not on file documented as of this encounter Visit Diagnoses Not on filedocumented in this encounter Care Teams Records Analyst Relationship Specialty Start Date End Date Gracy Reynolds PCP - General Family Practice 06/14/11 08/15/19 Community, Pcp PCP - General Internal Medicine 08/16/19 documented as of this encounter
--- OUTSIDE RECORDS SUMMARY | 2024-07-14 11:09 | XMS_ITS | Encounter Summary ---
Author Organization [employer] [facility] Address [address] [facility] 7t [place] [address] Care Team Providers Care Church Organist Name Role Phone Gracy Reynolds MD Primary Care Provider [phone] Reason for Visit * Reason Onset Date Comments call return 09/16/2022 Encounter Details Date Type Department Care Team ([facility] st Contact Info) Description 09/16/2022 Telephone [facility] [address] [place], [place] [phone] Gracy Reynolds MD [address] [place] [address] call return Social History Tobacco Use Types Packs/Day Years [...] suspected to have Coronavirus/COVID-19? No / Unsure 09/15/2022 8:51 AM EDT documented as of this encounter Miscellaneous Notes * Telephone Encounter - Carlito Sterling - 09/16/2022 10:54 AM EDT Tc from pt returning phone call. Pt states a call from the clinic was made but feature writer does not see any task of call. Please contact pt at [phone] documented in this encounter Plan of Treatment Upcoming Encounters Date Type Department Care Team (Late st Contact Info) Description 08/16/2024 9:30 AM EST Office Visit [facility] [address] [place] [address] Gracy Reynolds MD [address] [place] [address] documented as of this encounter Visit Diagnoses Not on filedocumented in this encounter Additional Health Concerns Assessment Noted Time PHQ-9 Depression Total Score: 17 023 3:11 PM EDT documented as of this encounter Care Teams Church Organist Relationship Specialty Start Date End Date Gracy Reynolds MD [address] [place] [address] PCP - General Family Medicine 01/27/22 Osmel Conn Customer Complaint Service SupervisorTransportation Modeler 01/04/24 documented as of this encounter
--- OUTSIDE RECORDS SUMMARY | 2024-07-14 11:09 | XMS_ITS | Encounter Summary ---
Author Organization [facility] Address [address] [place] [address] 7[address] [place] [address] Care Team Providers Care Disease Case Manager Rn Name Role Phone Gracy Reynolds MD Primary Care Provider [phone] Reason for Referral * Imaging (Routine) - Closed Specialty Diagnoses / Procedures Referred By Contac t Referred To Contact Radiology Diagnoses Breast cancer screening by mammogram Procedures BI Mammogram Screening Tomosynthesis Bilateral Gracy Reynolds MD [address] [place] [address] Phone: tel: fax: [address] Phone: tel: fax: Referral ID Status Reason Start Date Expiration Date Visits Re quested Visits Authorized [id number] Closed 06/19/2024 06/19/2025 1 1 Encounter Details Date Type Department Care Team (Latest Contact Info) Description 06/19/2024 3:30 PM EST Office Visit [facility] MEDICINE [address] [place] [address] [phone] Gracy Reynolds MD [address] [place], [place] [phone] Chronic left shoulder pain (Primary Dx); 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CMS/HCC); Degenerative disc disease, cervical; Onychomycosis; Breast cancer screening by mammogram; History of Lyme disease; Hot flashes, menopausal; Other cardiomyopathy (CMS/HCC); Vitamin D deficiency; Mixed stress and urge urinary incontinence; Overactive bladder Social History Tobacco Use Types Packs/Day Years [...] AM EDT documented as of this encounter Last Filed Vital Signs Vital Sign Reading Time Taken Comments Blood Pressure 138/80 06/19/2024 3:39 PM EST Pulse 71 06/19/2024 3:39 PM EST Temperature 36.2 ??C (97.1 ??F) 06/19/2024 3:39 PM ES T Respiratory Rate 16 06/19/2024 3:39 PM EST Oxygen Saturation - - Inhaled Oxygen Concentration - - Weight 76.3 kg (168 lb 3.2 oz) 06/19/2024 3:39 P M EST Height - - Body Mass Index 27.15 04/05/2024 8:57 AM EDT documented in this encounter Progress Notes * Gracy Reynolds MD - 06/19/2024 3:30 PM EST Subjective paulette Munoz is a 54 y.o. female who has asthma, Hx Lyme disease, and depression, and patient presents for left shoulder pain. Background: Our last encounter was 04/05/2024. Interval history: X-ray on 04/05/24 showed: No evidence for acute process. Left glenohumeral joint space narrowing. Patient requested a script for DME, TENS pads. Today: The pt reports left shoulder pain and associated neck and lower back pain. She can't shower, sleep,or lift her arm even though the x-ray doesn't show any tears or anything. She also has associated neck pain. She denies any numbness. Right- handed. No injury. She states topical medications are not effective for onychomycosis. Although she dislikes a medication, she is so desperate that she wants to try oral terbinafine. She says her asthma and UTI's are more controlled now. In terms of urinary incontinence, she requests wet wipes. Review of Systems Constitutional: Negative for activity change, appetite change and fever. Respiratory: Negative for shortness of breath. Cardiovascular: Negative for chest pain. Musculoskeletal: Positive for back pain and neck pain. Associated left shoulder pain Objective Vitals: 06/19/24 1539 BP: 138/80 Pulse: 71 Resp: 16 Temp: 97.1 ??F (36.2 ??C) TempSrc: Temporal Weight: 168 lb 3.2 oz (76.3 kg) Physical Exam Constitutional: General: She is not in acute distress. Appearance: Normal appearance. She is not ill-appearing. HENT: Head: Normocephalic and atraumatic. Mouth/Throat: Mouth: Mucous membranes are moist. Eyes: Extraocular Movements: Extraocular movements intact. Pupils: Pupils are equal, round, and reactive to light. Cardiovascular: Rate and Rhythm: Normal rate and regular rhythm. Heart sounds: No murmur heard. Pulmonary: Effort: Pulmonary effort is normal. No respiratory distress. Breath sounds: Normal breath sounds. No wheezing or rhonchi. Musculoskeletal: Comments: No obvious deformity of bilateral shoulders. Tender globally. Decreased ROM (abduction, flexion, and internal rotation). Positive impingement. Normal electrical wirer strength. Neurovascularly intact. Skin: General: Skin is warm. Neurological: Mental Status: She is alert. Mental status is at baseline. Psychiatric: Mood and Affect: Mood normal. Results: Lab Results Component Value Date NA 141 06/17/2023 K 3.7 06/17/2023 CL 104 06/17/2023 CO2 31 (H) 06/17/2023 BUN 15 06/17/2023 CREATININE 0.65 06/17/2023 CRCLCALCPH 112.2 12/23/2022 EGFR >60 06/17/2023 GLUCOSE 85 06/17/2023 TOTALBILIRUB 0.3 06/17/2023 AST 15 06/17/2023 ALT 13 06/17/2023 TOTPROTEIN 7.4 06/17/2023 ALB 3.9 06/17/2023 ALP 47 06/17/2023 Lab Results Component Value Date TRIG 47 06/17/2023 CHOL 147 06/17/2023 LDLCHOLCAL 81 06/17/2023 HDL 57 06/17/2023 Lab Results Component Value Date HGBA1C 5.0 02/02/2022 Lab Results Component Value Date WBC 4.9 12/23/2022 HGB 12.0 12/23/2022 HCT 36.2 (L) 12/23/2022 PLT 170 12/23/2022 MCV 93.1 12/23/2022 The 10-year ASCVD risk score (Munir NEWMAN, et al., 2019) is: 1.1% Values used to calculate the score: Age: 54 years Sex: Female Is Non- : No Diabetic: No Tobacco smoker: No Systolic Blood Pressure: 138 mmHg Is BP treated: No HDL Cholesterol: 57 mg/dL Total Cholesterol: 147 mg/dL Screening and Health Care Maintenance: PHQ-2/9 Score: Patient Health Questionnaire-9 Score: 0 (11/16/2023 9:15 AM) Patient Health Questionnaire-2 Score: 0 (11/16/2023 9:15 AM) Thoughts that you would be better off or hurting yourself in some way: Not at all (11/16/2023 9:15 AM) NERIS-7 Score: No data recorded Health Maintenance Due Topic Date Due Colorectal Cancer Screening Never done Hepatitis B Vaccines (1 of 3 - 19+ 3-dose series) Never done Assessment/Plan Problem List Items Addressed This Visit Degenerative disc disease, cervical - she has tried acupuncture, PT, and chiropractor - she has tried NSAIDs, APAP, and gabapentin, but patient dislikes medications - MRI in August 2021 showed foraminal stenosis to a moderate degree at C5-C6. She has disc degenerative changes across C3-C6. There is no spinal cord compression. - following with [facility] in [place] previously and was referred to neurosurgeon - seen by neurosurgeon, Dr. Ramsey, at [facility] in October 2021. Impression was that her symptoms go way beyondwhat the right C6 nerve can account for. She not only has symptoms in the right upper extremity, but also the left and also nonspecific diffuse pain in the neck, lower back, lower extremities, headaches, etc. Patient was explained that in such situations, operating with a goal of releasing the right C6 nerve root is not likely to translate into any meaningful improvement overall. 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CMS/HCC) - seen by Dr. Solomon - her pain is likely due to fibromyalgia, rather than Lyme disease - continue duloxetine - continue acupuncture - continue gabapentin Cardiomyopathy (CMS/HCC) Relevant Orders Basic Metabolic Panel Lipid Panel with Reflex to Direct LDL Vitamin D deficiency Relevant Orders Vitamin D, 25-Hydroxy, Total, Immunoassay Mixed stress and urge urinary incontinence - seen by UroGYN in the past for pelvic organ prolapse - prescribe bed pads - pt does not want to try any medication - exercise pelvic floor muscle - she requests DME: wet wipes Overactive bladder - seen by UroGYN in November 2022 - continue Kegel exercise - pt has been using pantyliners. Script has been written for DME. - patient requests script for wet wipes History of Lyme disease - Dx 2009 - pt developed heart conduction abnormality, which seems to have resolved - no significant inflammatory arthritis Hot flashes, menopausal Relevant Orders CBC auto differential TSH with Reflex to Free T4 Onychomycosis - she was unable to receive a topical medication (urea cream) because it was not covered by her insurance - she is willing to try oral antifungal due to severe disease - discussed about side effect of terbinafine. Will check hepatic panel 3-4 weeks after starting it and after the treatment Relevant Medications terbinafine (LamISIL) 250 MG tablet Other Relevant Orders Hepatic Function Panel Chronic left shoulder pain - Primary - XR showed no tears or fractures in her shoulder -pt will get an MRI -She was referred to PT but she admits she never went because she thinks she can do the same exercises at home Relevant Orders MR Shoulder w/o Contrast Right Other Visit Diagnoses Breast cancer screening by mammogram Relevant Orders BI Mammogram Screening Tomosynthesis Bilateral Allergies Allergen Reactions Cat Dander Iodine Unknown Shellfish Allergy Itching LOBSTER Other reaction(s): itching, swelling Current Outpatient Medications Medication Instructions albuterol (2.5 MG/3ML) 0.083% nebulizer solution INHALE CONTENTS OF 1 VIAL VIA NEBULIZER EVERY 4 HOURS IF NEEDED FOR WHEEZING OR SHORTNESS OF BREATH (MAXIMUM 4/DAY) Benzoyl Peroxide Wash 5 % external wash APPLY TO AFFECTED AREA TOPICALLY EVERY DAY cholecalciferol VITAMIN D (VITAMIN D-3) 50 mcg, Oral, Daily DULoxetine (CYMBALTA) 60 mg, Oral, Daily EPINEPHrine (EPIPEN) 0.3 mg, Injection, Once as needed, Inject into upper leg. Call 911 after use. lidocaine (Lidoderm) 5 % patch PLACE 1 PATCH ONTO THE SKIN DAILY. REMOVE & DISCARD PATCH [id number] HOURS OR DIRECTED BY Mometasone Furoate (Asmanex HFA) 100 MCG/ACT aerosol Take 1 puff twice a day. Rinse mouth after each use. terbinafine (LAMISIL) 250 mg, Oral, Daily Ventolin HFA 108 (90 Base) MCG/ACT inhaler INHALE 2 PUFFS EVERY 4 (FOUR) HOURS IF NEEDED FOR WHEEZING OR SHORTNESS OF BREATH. Follow-up: As scheduled or sooner if any problem arises. Scribe Attestation: Bernardino Macdonald, am serving as a scribe to document services personally performed by Gracy Reynolds MD,based on the patient's response to questions by provider and provides statements to me. Physicians Attestation: Gracy Macdonald, have reviewed the information by the scribe, Margot Fournier, for accuracy and agree with its content. documented in this encounter Miscellaneous Notes * Assessment & Plan Note - Gracy Reynolds MD - 06/25/2024 11:13 AM ESTAssociated Problem(s): Mixed stress and urge urinary incontinence - seen by UroGYN in the past for pelvic organ prolapse - prescribe bed pads - pt does not want to try any medication - exercise pelvic floor muscle - she requests DME: wet wipes * Assessment & Plan Note - Gracy Reynolds MD - 06/19/2024 5:14 PM ESTAssociated Problem(s): Overactive bladder - seen by UroGYN in November 2022 - continue Kegel exercise - pt has been using pantyliners. Script has been written for DME. - patient requests script for wet wipes * Assessment & Plan Note - Gracy Reynolds MD - 06/19/2024 5:09 PM ESTAssociated Problem(s): History of Lyme disease - Dx 2009 - pt developed heart conduction abnormality, which seems to have resolved - no significant inflammatory arthritis * Assessment & Plan Note - Gracy Reynolds MD - 06/19/2024 5:07 PM ESTAssociated Problem(s): Onychomycosis - she was unable to receive a topical medication (urea cream) because it was not covered by her insurance - she is willing to try oral antifungal due to severe disease - discussed about side effect of terbinafine. Will check hepatic panel 3-4 weeks after starting it and after the treatment * Assessment & Plan Note - Bernardino Pierre - 06/19/2024 4:09 PM ESTAssociated Problem(s): 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CMS/HCC) - seen by Dr. Solomon - her pain is likely due to fibromyalgia, rather than Lyme disease - continue duloxetine - continue acupuncture - continue gabapentin * Assessment & Plan Note - Bernardino Pierre - 06/19/2024 4:09 PM ESTAssociated Problem(s): Degenerative disc disease, cervical - she has tried acupuncture, PT, and chiropractor - she has tried NSAIDs, APAP, and gabapentin, but patient dislikes medications - MRI in August 2021 showed foraminal stenosis to a moderate degree at C5-C6. She has disc degenerative changes across C3-C6. There is no spinal cord compression. - following with [facility] in [place] previously and was referred to neurosurgeon - seen by neurosurgeon, Dr. Ramsey, at [facility] in October 2021. Impression was that her symptoms go way beyondwhat the right C6 nerve can account for. She not only has symptoms in the right upper extremity, but also the left and also nonspecific diffuse pain in the neck, lower back, lower extremities, headaches, etc. Patient was explained that in such situations, operating with a goal of releasing the right C6 nerve root is not likely to translate into any meaningful improvement overall. * Assessment & Plan Note - Bernardino Pierre - 06/19/2024 4:08 PM ESTAssociated Problem(s): Chronic left shoulder pain - XR showed no tears or fractures in her shoulder -pt will get an MRI -She was referred to PT but she admits she never went because she thinks she can do the same exercises at home documented in this encounter Plan of Treatment Upcoming Encounters Date Type Department Care Team (Late st Contact Info) Description 08/16/2024 9:30 AM EST Office Visit [facility] MEDICINE [address] [place] [address] Gracy Reynolds MD [address] [place] [address] Scheduled Orders Name Type Priority Associated Diagnoses Orde r Schedule Basic Metabolic Panel Lab Routine Other cardiomyopathy (CMS/HCC) Expected: 06/19/2024 (Approximate), Expires: 06/19/2025 Hepatic Function Panel Lab Routine Onychomycosis Expected: 06/19/2024 (Approximate), Expires: 06/19/2025 Vitamin D, 25-Hydroxy, Total, Immunoassay Lab Routine Vitamin D deficiency Expected: 06/19/2024 (Approximate), Expires: 06/19/2025 CBC auto differential Lab Routine Hot flashes, menopausal Expected: 06/19/2024 (Approximate), Expires: 06/19/2025 TSH with Reflex to Free T4 Lab Routine Hot flashes, menopausal Expected: 06/19/2024 (Approximate), Expires: 06/19/2025 Lipid Panel with Reflex to Direct LDL Lab Routine Other cardiomyopathy (CMS/HCC) Expected: 06/19/2024 (Approximate), Expires: 06/19/2025 documented as of this encounter Procedures Procedure Name Priority Date/Time Associated Diagnosis Comments MR SHOULDER WO CONTRAST LEFT Routine 07/01/2024 8:46 AM EST BI MAMMOGRAM SCREENING TOMOSYNTHESIS BILATERAL Routine 06/30/2024 7:45 AM EST Breast cancer screening by mammogram documented in this encounter Results * MR Shoulder w/o Contrast Left (07/01/2024 8:46 AM EST) Anatomical Region Laterality Modality Upper Extremities, Shoulder Left Magn etic Resonance 07/01/2024 8:46 AM EST Narrative 07/01/2024 8:47 AM EST ? [facility] ?[address] ?[place] [address] ? Magnetic Resonance Report ? Signed ? Patient: Alexander,Iris ?MR#: [id number] ?? 81 ? : 1970 ?Acct:[id number] ? Age/Sex: 54 / F ?ADM Date: 01/17/25 ? Loc: HO.MRI ? Attending Dr: Gracy Reynolds MD ? Ordering Physician: Gracy Reynolds MD ?? Date of Service: 06/30/24 ?? Procedure(s): MR shoulder LT wo con ?? Accession Number(s): [id number] ? cc: Gracy Reynolds MD ? CLINICAL HISTORY: chroninc pain severely limited rom ? MR left shoulder without gadolinium ? Comparison: None ? Findings: ?? No acute fractures. No pathologic bone lesions. ?? No significant arthritic changes. ?? Type II acromion. ?? No effusion. ? The supraspinatus, infraspinatus, subscapularis, and teres minor tendons ?? are intact. ? The long head of biceps is intact. ?? There is loss of visualization of the inferior glenohumeral ligament. ?? Glenoid labrum is intact. ? IMPRESSION: ?? 1. Inferior glenohumeral ligament tear. ? This document has been electronically signed by: August Gao MD on ?? 07/01/2024 08:46:48 ? Dictated By: ?August Gao MD ? Signed By: ?<Electronically signed by August Gao MD in OV> ?07/01/24 0847 ? DD/ 5 ? TD/TT: 07/01/24845 ? Wood Carver Hand: ? Procedure Note Barron Owens - 07/01/2024 [place] [address] Magnetic Resonance Report Signed Patient: Carrol Munoz#: [id number] 81 : 1970Acct:[id number] Age/Sex: 54 / FADM Date: 06/30/24 Loc: HO.MRI Attending Dr: Gracy Reynolds MD Ordering Physician: Gracy Reynolds MD Date of Service: 06/30/24 Procedure(s): MR shoulder LT wo con Accession Number(s): [id number] cc: Gracy Reynolds MD CLINICAL HISTORY: chroninc pain severely limited rom MR left shoulder without gadolinium Comparison: None Findings: No acute fractures. No pathologic bone lesions. No significant arthritic changes. Type II acromion. No effusion. The supraspinatus, infraspinatus, subscapularis, and teres minor tendons are intact. The long head of biceps is intact. There is loss of visualization of the inferior glenohumeral ligament. Glenoid labrum is intact. IMPRESSION: 1. Inferior glenohumeral ligament tear. This document has been electronically signed by: August Gao MD on 07/01/2024 08:46:48 Dictated By: August Gao MD Signed By: <Electronically signed by August Gao MD in OV> 07/01/2447 DD/ 5 TD/TT: 07/01/24845 Wood Carver Hand: us Gracy Reynolds MD IMG MRI PROCEDURES Final Result * BI Mammogram Screening Tomosynthesis Bilateral (06/30/2024 7:45 AM EST) Anatomical Region Laterality Modality Breast Bilateral Mammography 06/30/2024 7:45 AM EST Narrative 07/09/2024 1:45 PM EST ? [facility] ?[address] ?[place] [address] ? Mammography Report ? Signed ? Patient: Alexander,Iris ?MR#: [id number] ?? 81 ? : 1970 ?Acct:[id number] ? Age/Sex: 54 / F ?ADM Date: 01/17/25 ? Loc: HO.MRI ? Attending Dr: Gracy Reynolds MD ? Ordering Physician: Gracy Reynolds MD ?Results: 2Benign F ?? indings ? Date of Service: /17/25 ?Follow Up: 1 Year From Orig ?? inal Mammogram ? Procedure(s): MM tomosynthesis screening BI ?? Accession Number(s): [id number] ? cc: Gracy Reynolds MD ? EXAMINATION: ?? MM SCREENING DIGITAL BREAST TOMOSYNTHESIS, BILATERAL ? CLINICAL INFORMATION: ? Screening. Asymptomatic. ? COMPARISON: ?? Mammography: Comparison is made with available priors ? TECHNIQUE: ?? Digital breast mammography with tomosynthesis is performed in both the ?? craniocaudal and mediolateral oblique views along with computer-aided ?? detection (CAD). ? FINDINGS: ?? There are scattered areas of fibroglandular density (ACR BI-RADS breast ?? composition Category b). ?? Right breast marker clips. ?? There are no significant masses, abnormal calcifications, or other ?? abnormalities. ? MM/MM tomosynthesis screening BI ?? IMPRESSION: ?? No mammographic evidence of malignancy. ? ASSESSMENT: ? BI-RADS BI-RADS 2 - Benign Findings ? RECOMMENDATION: ?? Routine annual mammography screening. ? 1 year F/U ? This examination should not preclude the clinical evaluation of a ?? suspicious palpable abnormality. ? This patient's information was entered into a reminder system with a ?? target due date for their next mammogram. ? Electronically signed by: ??Mag Camacho DO ??07/09/2024 01:42 PM EST ? Dictated By: ?Mag Camacho DO ? Signed By: ?<Electronically signed by Mag Camacho, DO in OV> ? 07/09/24 1342 ? DD/ 0745 ? TD/TT: 06/30/24 0800 ? Wood Carver Hand: ? Procedure Note Barron Owens - 07/09/[address] [address] Mammography Report Signed Patient: Carrol Munoz#: [id number] [birth year] : 1970Acct:[id number] Age/Sex: 54 / FADM Date: 06/30/24 Loc: HO.MRI Attending Dr: Gracy Reynolds MD Ordering Physician: Gracy Reynolds MDResults: 2Benign F indings Date of Service: 06/30/24Follow Up: 1 Year From [facility] Mammogram Procedure(s): MM tomosynthesis screening BI Accession Number(s): [id number] cc: Gracy Reynolds MD EXAMINATION: MM SCREENING DIGITAL BREAST TOMOSYNTHESIS, BILATERAL CLINICAL INFORMATION: Screening. Asymptomatic. COMPARISON: Mammography: Comparison is made with available priors TECHNIQUE: Digital breast mammography with tomosynthesis is performed in both the craniocaudal and mediolateral oblique views along with computer-aided detection (CAD). FINDINGS: There are scattered areas of fibroglandular density (ACR BI-RADS breast composition Category b). Right breast marker clips. There are no significant masses, abnormal calcifications, or other abnormalities. MM/MM tomosynthesis screening BI IMPRESSION: No mammographic evidence of malignancy. ASSESSMENT: BI-RADS BI-RADS 2 - Benign Findings RECOMMENDATION: Routine annual mammography screening. 1 year F/U This examination should not preclude the clinical evaluation of a suspicious palpable abnormality. This patient's information was entered into a reminder system with a target due date for their next mammogram. Electronically signed by: Mag Camacho DO 07/09/2024 01:42 PM [facility] Dictated By: Mag Camacho DO Signed By: <Electronically signed by Mag Camacho DO in OV> 07/09/24 1342 DD/ 0745 TD/TT: 06/30/24 0800 Wood Carver Hand: Gracy Reynolds MD IMG BI PROCEDURES Edited Result - Final documented in this encounter Visit Diagnoses Diagnosis Chronic left shoulder pain- Primary Pain in joint, shoulder region 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CMS/HCC) Lyme disease Degenerative disc disease, cervical Onychomycosis Dermatophytosis of nail Breast cancer screening by mammogram History of Lyme disease Hot flashes, menopausal Symptomatic menopausal or female climacteric states Other cardiomyopathy (CMS/HCC) Vitamin D deficiency Mixed stress and urge urinary incontinence Mixed incontinence urge and stress (male)(female) Overactive bladder Hypertonicity of bladder documented in this encounter Additional Health Concerns Assessment Noted Time PHQ-9 Depression Total Score: 0 11/16/19 9:15 AM EDT documented as of this encounter Care Teams Disease Case Manager Rn Relationship Specialty Start Date End Date Gracy Reynolds MD [address] [place] [address] PCP - General Family Medicine 01/27/22 Osmel Conn Energy TechnicianCaretaker 01/04/24 documented as of this encounter
--- OUTSIDE RECORDS SUMMARY | 2024-07-14 11:09 | XMS_ITS | Encounter Summary ---
Author Organization [employer] Address [address] [facility] [address] [place] [address] Care Team Providers Care Release Of Information Specialist Name Role Phone Gracy Reynolds MD Primary Care Provider [phone] Reason for Visit * Reason Onset Date Comments Med Refill 06/30/2024 Encounter Details Date Type Department Care Team ([facility] st Contact Info) Description 06/30/2024 Refill [facility] [address] [place], [place] [phone] Gracy Reynolds MD [address] [place] [address] Social History Tobacco Use Types Packs/Day Years [...] Description 08/16/2024 9:30 AM EST Office Visit [facility] [address] [place] [phone] Gracy Reynolds MD [address] [place] [phone] documented as of this encounter Visit Diagnoses Not on filedocumented in this encounter Additional Health Concerns Assessment Noted Time PHQ-9 Depression Total Score: 0 11/16/19 24 9:15 AM EDT documented as of this encounter Care Teams Release Of Information Specialist Relationship Specialty Start Date End Date Gracy Reynolds MD [address] [place] [address] PCP - General Family Medicine 01/27/22 Osmel Conn Work Environment Safety InspectorApplications Support Engineer 01/04/24 documented as of this encounter
--- OUTSIDE RECORDS SUMMARY | 2024-07-14 11:09 | XMS_ITS | Encounter Summary ---
Author Organization [employer] Address [address] [facility] 7t [place] [address] Care Team Providers Care Exhibitions Curator Name Role Phone Gracy Reynolds MD Primary Care Provider [phone] Reason for Visit * Reason Onset Date Comments Letter for School/Work 10/05/2022 Encounter Details Date Type Department Care Team ([facility] st Contact Info) Description 10/05/2022 Telephone [facility] MEDICINE [address] [place], [place] [phone] Gracy Reynolds MD [address] [place] [address] Letter for School/Work Social History Tobacco Use Types Packs/Day Years [...] suspected to have Coronavirus/COVID-19? No / Unsure 10/06/2022 8:52 AM EDT documented as of this encounter Miscellaneous Notes * Telephone Encounter - Hima Mckeon - 10/05/2022 9:12 AM EDT Tc from pt requesting an letter for DTA program, pt is needing this letter to be excuse from the program due to pt health conditions. Pt is on a time frame for letter, pt needs to bring letter back by the end of September. Please contact pt at [phone] documented in this encounter Plan of Treatment Upcoming Encounters Date Type Department Care Team (Late st Contact Info) Description 08/16/2024 9:30 AM EST Office Visit [facility] MEDICINE [address] [place] [address] Gracy Reynolds MD [address] [place] [address] documented as of this encounter Visit Diagnoses Not on filedocumented in this encounter Additional Health Concerns Assessment Noted Time PHQ-9 Depression Total Score: 17 023 3:11 PM EDT documented as of this encounter Care Teams Exhibitions Curator Relationship Specialty Start Date End Date Gracy Reynolds MD [address] [place] [address] PCP - General Family Medicine 01/27/22 Osmel Conn Site ForemanSenior Telecommunications Consultant 01/04/24 documented as of this encounter
--- OUTSIDE RECORDS SUMMARY | 2024-07-14 11:09 | XMS_ITS | Encounter Summary ---
Author Organization [email or web address] Address [address] [facility] 7t [place] [address] Care Team Providers Care Dampproofer Name Role Phone Gracy Reynolds MD Primary Care Provider [phone] Reason for Visit * Reason Onset Date Comments MRI SHOULDER ORDER 06/22/2024 Encounter Details Date Type Department Care Team ([facility] st Contact Info) Description 06/22/2024 Telephone [facility] Information Management [address] [place] [address] Gracy Reynolds MD [address] [place] [address] MRI SHOULDER ORDER Social History Tobacco Use Types Packs/Day Years [...] encounter Miscellaneous Notes * Telephone Encounter - Shannon Kearns - 06/22/2024 11:09 AM EST Please complete notes from 06/19/24 in order to proceed with MRI SHOULDER order. documented in this encounter Plan of Treatment Upcoming Encounters Date Type Department Care Team (Late st Contact Info) Description 08/16/2024 9:30 AM EST Office [facility] MEDICINE [address] [place] [address] Gracy Reynolds MD [address] [place] [address] documented as of this encounter Visit Diagnoses Not on filedocumented in this encounter Additional Health Concerns Assessment Noted Time PHQ-9 Depression Total Score: 0 11/16/19 9:15 AM EDT documented as of this encounter Care Teams Dampproofer Relationship Specialty Start Date End Date Gracy Reynolds MD [address] [place] [address] PCP - General Family Medicine 01/27/22 Osmel Conn Search Engine OptimizerPower Transformer Repairer 01/04/24 documented as of this encounter
--- OUTSIDE RECORDS SUMMARY | 2024-07-14 11:09 | XMS_ITS | Encounter Summary ---
Author Organization [employer] Address [address] [place] [address] 7[address] [place] [address] Care Team Providers Care Credit Risk Analyst Name Role Phone Gracy Reynolds MD Primary Care Provider [phone] Reason for Referral * Imaging (Routine) - Closed Specialty Diagnoses / Procedures Referred By Contmariana t Referred To Contact Radiology Diagnoses Chronic left shoulder pain Procedures MR Shoulder w/o Contrast Left Gracy Reynolds MD [address] [place] [address] Phone: tel: fax: [address] Phone: tel: fax: Referral ID Status Reason Start Date Expiration Date Visits Re quested Visits Authorized [id number] Closed 06/30/2024 06/30/2025 1 1 Reason for Visit * Reason Onset Date Comments image order 06/30/2024 Encounter Details Date Type Department Care Team ([facility] st Contact Info) Description 06/30/2024 Telephone [facility] [address] [place], [place] [phone] Gracy Reynolds MD [address] [place], [place] [phone] image order Social History Tobacco Use Types Packs/Day Years [...] encounter Miscellaneous Notes * Telephone Encounter - Desiree Abernathy RN - 06/30/2024 9:22 AM EST Spoke with Ricarda at [facility] who reports pt there now. Dx is left shoulder pain but MRI was placed for right shoulder. Needs order to say left shoulder without contrast. Order corrected and faxed. * Telephone Encounter - Donaldo Meeks - 06/30/2024 8:30 AM EST TC from Christina at [facility] reports getting order for MRI w/o contrast of right shoulder.. states has to be modified. Pt currently at [facility] and its the Left shoulder. Needs new order rupert documented in this encounter Plan of Treatment Upcoming Encounters Date Type Department Care Team (Late st Contact Info) Description 08/16/2024 9:30 AM EST Office Visit [facility] [address] [place] [address] Gracy Reynolds MD [address] [place] [address] Scheduled Orders Name Type Priority Associated Diagnoses Orde r Schedule MR Shoulder w/o Contrast Left Imaging Routine Chronic left shoulder pain Expected: 06/30/2024, Expires: 06/30/2025 documented as of this encounter Visit Diagnoses Diagnosis Chronic left shoulder pain Pain in joint, shoulder region documented in this encounter Additional Health Concerns Assessment Noted Time PHQ-9 Depression Total Score: 0 11/16/19 24 9:15 AM EDT documented as of this encounter Care Teams Credit Risk Analyst Relationship Specialty Start Date End Date Gracy Reynolds MD [address] [place] [address] PCP - General Family Medicine 01/27/22 Osmel Conn Dust Brush AssemblerCtc Operator 01/04/24 documented as of this encounter
--- OUTSIDE RECORDS SUMMARY | 2024-07-14 11:09 | XMS_ITS | Encounter Summary ---
Author Organization [employer] Address [address] [facility] [address] [facility] [address] [address] [place] [address] Care Team Providers Care Purchaser Automotive Parts Name Role Phone Gracy Reynolds MD Primary Care Provider [phone] Encounter Details Date Type Department Care Team ([facility] st Contact Info) Description 07/07/2024 Orders Only [facility] MEDICINE [address] [place], [place] [phone] Gracy Reynolds MD [address] [place], [place] [phone] Social History Tobacco Use Types Packs/Day Years [...] Description 08/16/2024 9:30 AM EST Office Visit [facility] MEDICINE [address] [place] [address] Gracy Reynolds MD [address] [place] [address] documented as of this encounter Visit Diagnoses Not on filedocumented in this encounter Additional Health Concerns Assessment Noted Time PHQ-9 Depression Total Score: 0 11/16/19 24 9:15 AM EDT documented as of this encounter Care Teams Purchaser [employer]otive Parts Relationship Specialty Start Date End Date Gracy Reynolds MD [address] [place] [address] PCP - General Family Medicine 01/27/22 Osmel Conn Plastic Extrusion OperatorWine Master 01/04/24 documented as of this encounter
--- OUTSIDE RECORDS SUMMARY | 2024-07-14 11:09 | XMS_ITS | Encounter Summary ---
Author Organization [employer] Address [address] [facility] 7[address] [place] [address] Care Team Providers Care Material Specialist Name Role Phone Gracy Reynolds MD Primary Care Provider [phone] Reason for Visit * Reason Onset Date Comments dme wipes 06/28/2024 Encounter Details Date Type Department Care Team ([facility] st Contact Info) Description 06/28/2024 Telephone [facility] [address] [place] [address] Lisa Wright MA dme wipes Social History Tobacco Use Types Packs/Day Years [...] encounter Miscellaneous Notes * Telephone Encounter - Lisa Wright MA - 06/28/2024 2:56 PM EST Yousif send script for wipes to [facility] dme referrals. Yousif received paperwork pcp sign ma faxed again documented in this encounter Plan of Treatment Upcoming Encounters Date Type Department Care Team (Late st Contact Info) Description 08/16/2024 9:30 AM EST Office Visit [facility] MED[facility]INE [address] [place] [address] Gracy Reynolds MD [address] [place] [address] documented as of this encounter Visit Diagnoses Not on filedocumented in this encounter Additional Health Concerns Assessment Noted Time PHQ-9 Depression Total Score: 0 11/16/19 9:15 AM EDT documented as of this encounter Care Teams Material Specialist Relationship Specialty Start Date End Date Gracy Reynolds MD [address] [place] [address] PCP - General Family Medicine 01/27/22 Osmel Conn Chemistry Quality Control TechnicianArchival Studies Professor 01/04/24 documented as of this encounter
--- OUTSIDE RECORDS SUMMARY | 2024-07-14 11:09 | XMS_ITS | Encounter Summary ---
Author Organization [employer] Address [address] [facility] 7[address] [place] [address] Care Team Providers Care Tube Skiver Name Role Phone Gracy Reynolds MD Primary Care Provider [phone] Reason for Visit * Reason Onset Date Comments dme tens pads 06/27/2024 Nurse Triage 06/27/2024 Encounter Details Date Type Department Care Team ([facility] st Contact Info) Description 06/27/[address] [facility] MEDICINE [address] [place] [address] Gracy Reynolds MD [address] [place] [address] dme tens pads; Nurse Triage Social History Tobacco Use Types [...] Telephone Encounter - Desiree Abernathy RN - 06/28/2024 12:33 PM EST Pt walked into [employer] lobby requesting to speak with RN. States that if unknown number, her phone goes to [employer] so she missed triage nurse calls. Reports that pain is spreading. Now is both shoulders, neck, and down her arms to elbows. Pain has worsened, having difficulty sleeping, and slight numbness around elbows. Denies chest pain Gave number for centralized scheduling for MRI ordered but encouraged to go to the ED if pain is spreading and she is having numbness or warmth to the area. Pt declined WIC appt. Thinks she will go to the ED given worrisome Sx. * Telephone Encounter - Lisa Wright MA - 06/28/2024 10:03 AM EST Yousif send dme referral to [facility] for tens pads * Telephone Encounter - Margaret Negro - 06/27/2024 11:28 AM EST Symptom: Shoulder Pain - Not From Injury Outcome: Schedule an urgent appointment (within 1 hour) or talk to a nurse or provider soon Reason: Can't use the shoulder normally The caller accepted this outcome. [phone] documented in this encounter Plan of Treatment Upcoming Encounters Date Type Department Care Team (Late st Contact Info) Description 08/16/2024 9:30 AM EST Office Visit [facility] MEDICINE [address] [place] [address] Gracy Reynolds MD [address] [place] [address] documented as of this encounter Visit Diagnoses Not on filedocumented in this encounter Additional Health Concerns Assessment Noted Time PHQ-9 Depression Total Score: 0 11/16/19 24 9:15 AM EDT documented as of this encounter Care Teams Tube Skiver Relationship Specialty Start Date End Date Gracy Reynolds MD [address] [place] [address] PCP - General Family Medicine 01/27/22 Osmel Conn Family Law ParalegalClinical Exercise Physiologist 01/04/24 documented as of this encounter
--- OUTSIDE RECORDS SUMMARY | 2024-07-14 11:09 | XMS_ITS | Encounter Summary ---
Author Organization [employer] Address [address] [facility] 7t [place] [address] Care Team Providers Care Comber Setter Name Role Phone Gracy Reynolds MD Primary Care Provider [phone] Reason for Visit * Reason Onset Date Comments chart prep 06/16/2024 Encounter Details Date Type Department Care Team ([facility] st Contact Info) Description 06/16/2024 Telephone [facility] [address] [place], [place] [phone] Lisa Wright MA chart prep Social History Tobacco Use Types Packs/Day Years [...] Telephone Encounter - Lisa Wright MA - 06/16/2024 9:45 AM EST ..Chart Prep Labs: not applicable Images: not applicable Vaccines due: Hep B Due Referrals: Not Applicable Screenings: Colonoscopy Overdue care gaps: Oral Health and rubin-7 documented in this encounter Plan of Treatment Upcoming Encounters Date Type Department Care Team (Late st Contact Info) Description 08/16/2024 9:30 AM EST Office Visit [facility] [address] [place] [address] Gracy Reynolds MD [address] [place] [address] documented as of this encounter Visit Diagnoses Not on filedocumented in this encounter Additional Health Concerns Assessment Noted Time PHQ-9 Depression Total Score: 0 11/16/19 9:15 AM EDT documented as of this encounter Care Teams Comber Setter Relationship Specialty Start Date End Date Gracy Reynolds MD [address] [place] [address] PCP - General Family Medicine 01/27/22 Osmel Conn Diamond GraderEnergy Risk Management Analyst 01/04/24 documented as of this encounter
--- OUTSIDE RECORDS SUMMARY | 2024-07-14 11:09 | XMS_ITS | Clinical Summary ---
Author Organization [employer] Address [address] [facility] [address] [place] [address] Care Team Providers Care Field Marketing Associate Name Role Phone Gracy Reynolds MD Primary Care Provider [phone] Allergies Active Allergy Reactions Criticality Noted Date Comments Cat Dander 05/19/2023 Iodine Unknown 08/18/2010 Shellfish Allergy Itching 12/22/2019 LOBSTER Other reaction(s): itching, swelling Medications EPINEPHrine (Epipen) 0.3 MG/0.3ML injection syringe Inject 0.3 mL (0.3 mg) as directed 1 (one) time if needed for anaphylaxis. Inject into upper leg. Call 911 after use. 1 each 2 07/16/19 24 Active DULoxetine (Cymbalta) [address] capsule TAKE 1 CAPSULE BY MOUTH EVERY DAY 90 capsule 1 04/20/20 24 Active terbinafine (LamISIL) 250 MG tabletIndicati ons:Onychomyco sis Take 1 tablet (250 mg) by mouth Once per day. 90 tablet 06/19/19 25 025 Active Benzoyl Peroxide Wash 5 % external wash APPLY TO AFFECTED AREA TOPICALLY EVERY DAY 236 mL 07/04/19 25 Active lidocaine (Lidoderm) 5 % patch PLACE 1 PATCH ONTO THE SKIN DAILY. REMOVE & DISCARD PATCH WITHIN 12 HOURS OR DIRECTED BY MD 30 patch 07/04/19 25 Active Mometasone Furoate (Asmanex HFA) 100 MCG/ACT aerosol Take 1 puff twice a day. Rinse mouth after each use. 13 g 07/04/19 25 Active albuterol (2.5 MG/3ML) 0.083% nebulizer solution INHALE CONTENTS OF 1 VIAL VIA NEBULIZER EVERY 4 HOURS IF NEEDED FOR WHEEZING OR SHORTNESS OF BREATH (MAXIMUM 4/DAY) 75 mL 1 07/04/19 25 Active cholecalcifero l VITAMIN D (Vitamin D-3) 50 MCG (1999 UT) tablet Take 1 tablet (50 mcg) by mouth Once per day. 90 tablet 3 07/04/19 25 Active albuterol (Ventolin HFA) 108 (90 Base) MCG/ACT inhaler INHALE 2 PUFFS EVERY 4 (FOUR) HOURS IF NEEDED FOR WHEEZING OR SHORTNESS OF BREATH. 18 g 07/04/19 25 Active meloxicam (Mobic) 7.5 MG tablet Take 1 tablet (7.5 mg) by mouth if needed in the morning and at bedtime for moderate pain. 30 tablet 07/07/19 25 026 Active Benzoyl Peroxide Wash 5 % external wash APPLY TO AFFECTED AREA TOPICALLY EVERY DAY 236 mL 05/24/20 23 025 Discontinued(Re order (will not trigger notification to Pharmacy)) lidocaine (Lidoderm) 5 % patch PLACE 1 PATCH ONTO THE SKIN DAILY. REMOVE & DISCARD PATCH WITHIN 12 HOURS OR DIRECTED BY MD 30 patch 11 05/24/20 23 025 Discontinued(Re order (will not trigger notification to Pharmacy)) Mometasone Furoate (Asmanex HFA) 100 MCG/ACT aerosol Take 1 puff twice a day. Rinse mouth after each use. 13 g 11 07/06/19 24 025 Discontinued(Re order (will not trigger notification to Pharmacy)) albuterol (2.5 MG/3ML) 0.083% nebulizer solution INHALE CONTENTS OF 1 VIAL VIA NEBULIZER EVERY 4 HOURS IF NEEDED FOR WHEEZING OR SHORTNESS OF BREATH (MAXIMUM 4/DAY) 75 mL 1 09/02/19 24 025 Discontinued(Re order (will not trigger notification to Pharmacy)) cholecalcifero l (Vitamin D-3) 50 MCG (2000 UT) tablet Take 1 tablet (50 mcg) by mouth Once per day. 90 tablet 3 11/16/19 24 025 Discontinued(Re order (will not trigger notification to Pharmacy)) Ventolin HFA 108 (90 Base) MCG/ACT inhaler INHALE 2 PUFFS EVERY 4 (FOUR) HOURS IF NEEDED FOR WHEEZING OR SHORTNESS OF BREATH. 18 g 1 02/03/20 24 025 Discontinued(Re order (will not trigger notification to Pharmacy)) urea (Carmol) 40 % cream Apply to nails daily 227 g 11 04/05/20 24 025 Discontinued(Me d list cleanup (will not trigger notification to Pharmacy)) Active Problems Problem Noted Date Diagnosed Date Onychomycosis 04/05/2024 Assessment & Plan (06/19/2024 5:07 PM EST): - she was unable to receive a topical medication (urea cream) because it was not covered by her insurance - she is willing to try oral antifungal due to severe disease - discussed about side effect of terbinafine. Will check hepatic panel 3-4 weeks after starting it and after the treatment Assessment & Plan (04/05/2024 9:25 AM EDT): - the patient is hesitant to start oral medication. She will try topical medication. Chronic left shoulder pain 04/05/2024 Assessment & Plan (06/19/2024 4:21 PM EST): - XR showed no tears or fractures in her shoulder -pt will get an MRI -She was referred to PT but she admits she never went because she thinks she can do the same exercises at home Assessment & Plan (04/05/2024 9:26 AM EDT): - will evaluate with XR - the patient would like to try physical therapy. Will refer to PT. Hot flashes, menopausal 05/19/2023 05/19/20 23 Overactive bladder 01/15/2023 Assessment & Plan (06/19/2024 5:14 PM EST): - seen by U[facility]VITOR in November 2022 - continue Kegel exercise - pt has been using pantyliners. Script has been written for DME. - patient requests script for wet wipes Assessment & Plan (07/16/2023 9:38 AM EST): - seen by [facility]REYMUN[facility] in November 2022 - continue Kegel exercise - pt has been using pantyliners. Assessment & Plan (05/25/2023 11:49 AM EST): - seen by U[facility]GYN in November 2022 - continue Kegel exercise - pt has been using pantyliners. Assessment & Plan (01/15/2023 5:09 PM EDT): - seen by UroGYN in November 2022 - continue Kegel exercise - pt has been using pantyliners. Check the status of script. History of Lyme disease 01/15/2023 Assessment & Plan (06/19/2024 5:09 PM EST): - Dx 2010 - pt developed heart conduction abnormality, which seems to have resolved - no significant inflammatory arthritis Assessment & Plan (11/16/2023 5:52 PM EDT): - Dx 2010 - pt developed heart conduction abnormality, which seems to have resolved - no significant inflammatory arthritis Assessment & Plan (05/25/2023 11:51 AM EST): - Dx 2010 - pt developed heart conduction abnormality, which seems to have resolved - no significant inflammatory arthritis Assessment & Plan (01/15/2023 5:19 PM EDT): - Dx 2010 - pt developed heart conduction abnormality, which seems to have resolved - no significant inflammatory arthritis History of shingles 01/14/2023 Fibromyalgia 09/28/2022 Assessment & Plan (04/05/2024 9:09 AM EDT): - continue duloexetine, which is prescribed by [facility] provider at [facility] - she has tried gabapentin, cyclobenzaprine, and diclofenac gel which she did not take because she dislikes medications - restarted gabapentin in December when she was seen for Shingles Assessment & Plan (11/16/2023 5:51 PM EDT): - continue duloexetine, which is prescribed by [facility] provider at [facility] - she has tried gabapentin, cyclobenzaprine, and diclofenac gel which she did not take because she dislikes medications - restarted gabapentin in December when she was seen for Shingles Assessment & Plan (07/16/2023 9:41 AM EST): - restarted duloexetine, which is prescribed by S provider at [facility] - she has tried gabapentin, cyclobenzaprine, and diclofenac gel which she did not take because she dislikes medications - restarted gabapentin in December when she was seen for Shingles Assessment & Plan (05/25/2023 11:51 AM EST): - restarted duloexetine, which is prescribed by [facility] provider at [facility] - she has tried gabapentin, cyclobenzaprine, and diclofenac gel which she did not take because she dislikes medications - restarted gabapentin in December when she was seen for Shingles Assessment & Plan (01/15/2023 5:17 PM EDT): - seen by Dr. Landers on 01/07/23 - her pain is due to fibromyalgia, rather than Lyme disease - continue duloextine, gabapentin, and cyclobenzaprine - continue acupunctre - Treatment Hx: Previously self-discontinued duloextine, gabapentin, and cyclobenzaprine. Recently started again. Assessment & Plan (09/28/2022 11:28 AM EDT): - her previous PCP prescribed duloexetine, but pt self-discontinued - she has tried gabapentin, cyclobenzaprine, and diclofenac gel which she did not take because she dislikes medications Mixed stress and urge urinary incontinence 09/28 Assessment & Plan (06/25/2024 11:13 AM EST): - seen by UroGYN in the past for pelvic organ prolapse - prescribe bed pads - pt does not want to try any medication - exercise pelvic floor muscle - she requests DME: wet wipes Assessment & Plan (11/16/2023 5:52 PM EDT): - seen by UroGYN in the past for pelvic organ prolapse - prescribe bed pads - pt does not want to try any medication - exercise pelvic floor muscle Assessment & Plan (07/16/2023 9:38 AM EST): - seen by UroGYN in the past for pelvic organ prolapse - prescribe bed pads - pt does not want to try any medication - exercise pelvic floor muscle Assessment & Plan (09/28/2022 11:31 AM EDT): - seen by UroGYN in the past for pelvic organ prolapse - prescribe bed pads - pt does not want to try any medication - exercise pelvic floor muscle Lyme disease 09/10/2022 Overview (09/10/2022): diagnosed in 2011. Last Assessment & Plan: This patient has had Lyme disease diagnosed over 10 years ago Cervical radiculopathy 08/10/2021 Overview (09/10/2022): Last Assessment & Plan: Chronic with recent worsening.Experiencing shooting type pain starting from the neck and radiating into b/l UE. -repeat MRI of the cspine shows progression of narrowing of right C3-4, left C4- 5, and bilateral C5-6 neural foramina which radiologist felt could be correlated with any associated clinical findings of radiculopathy. -plan to have consult with neurosurgery since she has failed numerous courses of PT -trial of starting gabapentin 100mg at bedtime. Reviewed potential SE and that we may need to titrate up for full effect Assessment & Plan (04/05/2024 4:43 AM EDT): - she has tried acupuncture, PT, and chiropractor - she has tried NSAIDs, APAP, and gabapentin, but patient dislikes medications - MRI in August 2021 showed foraminal stenosis to a moderate degree at C5-C6. She has disc degenerative changes across C3-C6. There is no spinal cord compression. - following with [facility] in [place] previously and was referred to neurosurgeon - seen by neurosurgeon, Dr. Ramsey, at [facility] [place] in [place]. Impression was that her symptoms go way beyond what the right C6 nerve can account for. She not only has symptoms in the right upper extremity, but also the left and also nonspecific diffuse pain in the neck, lower back, lower extremities, headaches, etc. Patient was explained that in such situations, operating with a goal of releasing the right C6 nerve root is not likely to translate into any meaningful improvement overall. Assessment & Plan (11/16/2023 5:48 PM EDT): - she has tried acupuncture, PT, and chiropractor - encouraged to continue trying various treatment modalities Assessment & Plan (05/25/2023 11:46 AM EST): - continue acupuncture Superficial inflammatory acne vulgaris Overview (09/10/2022): Last Assessment & Plan: Chronic with recent worsening. Could not use retinol cream due to harsh effect on skin. 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 Solomon - her pain is likely due to fibromyalgia, rather than Lyme disease - continue duloxetine - continue acupuncture - continue gabapentin Assessment & Plan (04/05/2024 9:09 AM EDT): - seen by Dr. Solomon - her pain is likely due to fibromyalgia, rather than Lyme disease - continue duloxetine - continue acupuncture - continue gabapentin Assessment & Plan (01/15/2023 5:14 PM EDT): - seen by Dr. Solomon - her pain is likely due to fibromyalgia, rather than Lyme disease - continue duloxetine - continue acupuncture - continue gabapentin Cardiomyopathy 12/17/2019 Overview (09/10/2022): Last Assessment & Plan: She has a normal EF Assessment & Plan (11/16/2023 5:51 PM EDT): - Hx Lyme disease, developed mild conduction abnormality - Following with [facility] provider, last seen in Feb 2023 - Low-normal EF on TTE - Continue current treatment plan per geospatial specialist Assessment & Plan (05/25/2023 11:49 AM EST): - Hx Lyme disease, developed mild conduction abnormality - Following with [facility] provider, last seen in August 2022 - Low-normal EF on TTE - Continue current treatment plan per geospatial specialist Assessment & Plan (01/15/2023 5:08 PM EDT): - Hx Lyme disease, developed mild conduction abnormality - Following with [facility] provider, last seen in August 2022 - Normal EF on TTE - Continue current treatment plan per geospatial specialist Assessment & Plan (09/28/2022 11:23 AM EDT): - Hx Lyme disease, developed mild conduction abnormality - Following with [facility] provider - Continue current treatment plan per geospatial specialist Chronic bilateral low back pain without sciatica 09/28/2019 Assessment & Plan (05/25/2023 11:51 AM EST): - continue acupuncture Assessment & Plan (09/28/2022 11:32 AM EDT): - continue acupuncture - script for shower chair Acute pain of both knees 09/28/2019 Assessment & Plan (09/28/2022 11:29 AM EDT): - evaluate with X-ray - continue acupuncture Degenerative disc disease, cervical 09/28/2019 Overview (09/10/2022): Last Assessment & Plan: Chronic with recent worsening of her neck pain. Now having severe functional limitations. -Recommend neurosurgery consult given recent MRI findings and she agrees. Scheduled with Dr. Ramsey for consult in October Assessment & Plan (06/19/2024 4:09 PM EST): - she has tried acupuncture, PT, and chiropractor - she has tried NSAIDs, APAP, and gabapentin, but patient dislikes medications - MRI in August 2021 showed foraminal stenosis to a moderate degree at C5-C6. She has disc degenerative changes across C3-C6. There is no spinal cord compression. - following with [facility] in [place] previously and was referred to neurosurgeon - seen by neurosurgeon, Dr. Ramsey, at [facility] [place] in October [place]. Impression was that her symptoms go way beyond what the right C6 nerve can account for. She not only has symptoms in the right upper extremity, but also the left and also nonspecific diffuse pain in the neck, lower back, lower extremities, headaches, etc. Patient was explained that in such situations, operating with a goal of releasing the right C6 nerve root is not likely to translate into any meaningful improvement overall. Assessment & Plan (04/05/2024 4:45 AM EDT): - she has tried acupuncture, PT, and chiropractor - she has tried NSAIDs, APAP, and gabapentin, but patient dislikes medications - MRI in August 2021 showed foraminal stenosis to a moderate degree at C5-C6. She has disc degenerative changes across C3-C6. There is no spinal cord compression. - following with [facility] in [place] previously and was referred to neurosurgeon - seen by neurosurgeon, Dr. Ramsey, at [facility] [place] in October 2021. Impression was that her symptoms go way beyond what the right C6 nerve can account for. She not only has symptoms in the right upper extremity, but also the left and also nonspecific diffuse pain in the neck, lower back, lower extremities, headaches, etc. Patient was explained that in such situations, operating with a goal of releasing the right C6 nerve root is not likely to translate into any meaningful improvement overall. Anxiety and depression 09/13/2019 Overview (09/10/2022): Last Assessment & Plan: This patient definitely has anxiety which she is controlling well unfortunately one of her sons of a severe asthma attack which she is grieving over Assessment & Plan (04/05/2024 9:10 AM EDT): - S provider: [facility] [employer] [employer] - continue current medications as prescribed by the provider. Assessment & Plan (11/16/2023 5:52 PM EDT): - S provider: [facility] - continue current medications as prescribed by the provider. Assessment & Plan (05/25/2023 11:59 AM EST): - S provider: [facility] [facility] - continue current medications as prescribed by the provider. Prescribed oxybutynin. Abnormal finding on breast imaging 08/16/2019 Overview (09/10/2022): Stereotactic biopsy on 02/22/2019-benign findings, recommended annual screening mammogram Last Assessment & Plan: [place]ot[place] [facility] [place]uled for upcoming mammogram, reports some chronic right breast pain as well. -will have her call back with date of her mammogram, will plan to change order to diagnostic w/ u/s to better evaluate the pain, no palpable abnormalities. Asteatosis cutis 12/03/2017 Bacterial vaginosis 04/14/2016 Asthma 11/01/2014 Overview (09/10/2022): Last Assessment & Plan: This patient has severe asthma which is currently stable. Assessment & Plan (04/05/2024 9:09 AM EDT): - moderate persistent - continue mometasone ICS 100 mcg bid - continue Montelukast - continue albuterol HFA prn Assessment & Plan (11/16/2023 5:50 PM EDT): - moderate persistent - continue mometasone ICS 100 mcg bid - continue Montelukast - continue albuterol HFA prn Assessment & Plan (07/16/2023 9:40 AM EST): - previously moderate persistent - she had not been adherent to ICS, and tried step down therapy for mild persistent / intermittent - step up therapy to moderate persistent again due to symptom frequency - start mometasone ICS 100 mcg bid - continue Montelukast - continue albuterol HFA prn Assessment & Plan (05/25/2023 11:48 AM EST): - previously moderate persistent - no longer using ICS - step down therapy to mild intermittent - continue Montelukast - continue albuterol HFA prn Assessment & Plan (01/15/2023 5:07 PM EDT): - previously moderate persistent - no longer using ICS / Flovent - step down therapy to mild intermittent - continue Montelukast - continue albuterol HFA prn 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 Recurrent urinary tract infection 03/03/2012 Assessment & Plan (07/16/2023 9:38 AM EST): - no recent UTI - check UA and UCx Anemia 02/19/2012 Iron deficiency anemia 02/19/2012 Vitamin D deficiency 12/07/2011 Assessment & Plan (11/16/2023 5:52 PM EDT): - currently on vitamin D 1000 units daily - check vitamin D level and adjust accordingly Resolved Problems Problem Noted Date Diagnosed Date Resolved Date Moderate persistent asthma 05/01/2015 0 07/16/2023 Assessment & Plan (05/25/2023 11:47 AM EST): - continue current treatment plan Encounters Date Type Department Care Team Description 07/07/2024 Orders Only [facility] [address] [place] [address] Gracy Reynolds MD 07/04/2024 Telephone [facility] [address] [place] [address] Gracy Reynolds MD Nurse Triage 07/04/2024 Orders Only [address] [address] Gracy Reynolds MD Chronic left shoulder pain (Primary Dx) 07/04/[address] [address] Gracy Reynolds MD Call Back Request 06/30/[address] [address] Gracy Reynolds MD 06/30/[address] [address] Gracy Reynolds MD image order 06/28/[address] [address] Lisa Wright MA dme wipes 06/27/[address] [address] Gracy Reynolds MD Durable Medical Equipment 06/27/[address] [address] Gracy Reynolds MD dme tens pads; Nurse Triage 06/22/2024 [facility] Health Information Management [address] [place] [id number] Gracy Reynolds MD MRI SHOULDER ORDER 06/19/2024 3:30 PM EST Office Visit [address] [address] Gracy Reynolds MD Chronic left shoulder pain (Primary Dx); 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CMS/HCC); Degenerative disc disease, cervical; Onychomycosis; Breast cancer screening by mammogram; History of Lyme disease; Hot flashes, menopausal; Other cardiomyopathy (CMS/HCC); Vitamin D deficiency; Mixed stress and urge urinary incontinence; Overactive bladder 06/19/2024 Travel 06/16/[address] [address] Lisa Wright MA chart prep 06/12/[address] [address] Gracy Reynolds MD Med Refill 05/29/2024 Telephone [facility] [address] [facility] [place] [phone] Gracy Reynolds MD Durable Medical Equipment 05/29/2024 Telephone [facility] [address] [facility] [place] [phone] Gracy Reynolds MD Results; Referral 04/20/2024 Refill [facility] [address] [facility] [place] [phone] Gracy Reynolds MD from Last 3 Months Immunizations Name Administration Dates Next Due Influenza Injectable Quadriv alant Preservative Free IIV4 MDCK 02/23/2023 Influenza injectable quadriv alent preservative free 03/31/2022,03/05/2021,05/03/2020,03/09 Influenza, IIV3, injectable 03/31/2011, 0 Influenza, Split (incl. blanca fied surface antigen) 05/04/2013 Influenza, seasonal, injecta ble, preservative free 04/05/2024 Pfizer Covid-19 Vaccine 12+ 04/05/2024, Pfizer Covid-19 Vaccine 12+ Bivalent 03/31/2022 Pneumococcal Conjugate PCV 20 11/16/2023 Pneumococcal Polysaccharide PPSV23 01/14/2010 TD (adult), 2 Lf tetanus tox oid, preservative free, adsorbed 08/24/2008 Tdap 09/05/2021,07/10/2011 Zoster, Recombinant 04/26/2023,02/23/2023 Social History Tobacco Use Types Packs/Day Years Used Date Smoking Tobacco: Never Passive Smoke Exposure: Never Smokeless Tobacco: Never Tobacco Cessation:Counseling Given: Not Answered Alcohol Use Standard Drinks/Week Comments Never 0 [...] Orientation Straight 04/13/2022 10 :18 AM EDT Last Filed Vital Signs Vital Sign Reading Time Taken Comments Blood Pressure 138/80 06/19/2024 3:39 PM EST Pulse 71 06/19/2024 3:39 PM EST Temperature 36.2 ??C (97.1 ??F) 06/19/2024 3:39 PM ES T Respiratory Rate 16 06/19/2024 3:39 PM EST Oxygen Saturation 98% 04/05/2024 8:57 AM EDT Inhaled Oxygen Concentration - - Weight 76.3 kg (168 lb 3.2 oz) 06/19/2024 3:39 P M EST Height 167.6 cm (5' 6 ) 04/05/2024 8:57 AM EDT Body Mass Index 27.15 04/05/2024 8:57 AM EDT Plan of Treatment Upcoming Encounters Date Type Department Care Team (Late st Contact Info) Description 08/16/2024 9:30 AM EST Office Visit [facility] [address] [place], [place] [phone] Gracy Reynolds MD [address] [place], [place] [phone] Health Maintenance Due Date Last Done Comments CT Colonography 1972 Colonoscopy 1972 Colorectal Cancer Screening 1972 FIT DNA/Cologuard 1972 FIT 1972 FOBT 1972 Sigmoidoscopy 1972 Family Planning (PISQ) 1987 Hepatitis B Vaccines (1 of 3 - 19+ 3-dose series) 1991 Depression Screening 11/15/2024 11/16/2023, 11/16/19 24 SDOH Screening 11/15/2024 11/16/2023 Alcohol/Substance Use Screening 04/05/2025 04/05/2024 Tobacco Screening 06/19/2025 06/19/2024 Mammogram 06/30/2026 06/30/2024, 02/13, 10/15/2021, Additional history exists Cervical Cancer Screening 02/09/2028 HPV/Cotest 02/09/2028 02/08/2023, 04/14/2016 Pap Smear 02/09/2028 02/08/2023 DTaP/Tdap/Td Vaccines (3 - Td or Tdap) 09/06/2031 09/05/2021, 07/10/2011, 08/24/2008 RSV Patients and Patients Aged 60 years or older (1 - 1-dose 75+ series) 2047 Zoster Vaccines Completed 04/26/2023, 02/23/2023 HIV Screening Completed 11/16/2023 Hepatitis C Screening Completed 11/16/2023 Pneumococcal Vaccine: 50+ Years Completed 11/16/2023, 01/14/2010 COVID-19 Vaccine Completed 04/05/2024, , 05/22/2021, Additional history exists Influenza Vaccine Completed 04/05/2024, , 03/31/2022, Additional history exists HIB Vaccines Aged Out No longer eligi ble based on patient's age to complete this topic HPV Vaccines Aged Out No longer eligi ble based on patient's age to complete this topic Hepatitis A Vaccines Aged Out No long er eligible based on patient's age to complete this topic IPV Vaccines Aged Out No longer eligi ble based on patient's age to complete this topic Meningococcal Vaccine Aged Out No genaro akash eligible based on patient's age to complete this topic RSV under 20 months Aged Out No longe r eligible based on patient's age to complete this topic Rotavirus Vaccines Aged Out No longer eligible based on patient's age to complete this topic Procedures Procedure Name Priority Date/Time Associated Diagnosis Comments MR SHOULDER WO CONTRAST LEFT Routine 07/01/2024 8:46 AM EST BI MAMMOGRAM SCREENING TOMOSYNTHESIS BILATERAL Routine 06/30/2024 7:45 AM EST Breast cancer screening by mammogram HEPATITIS C AB W/REFL TO HCV RNA, QN, PCR Routine 11/16/2023 9:51 AM EDT Routine screening for STI (sexually transmitted infection) HIV 1/2 ANTIGEN/ANTIBODY, FOURTH GENERATION W/RFL Routine 11/16/2023 9:51 AM EDT Routine screening for STI (sexually transmitted infection) HM PAP/HPV Routine 02/08/2023 from Last 3 Months or Most Recently Relevant to Health Maintenance Results * MR Shoulder w/o Contrast Left (07/01/2024 8:46 AM EST) Anatomical Region Laterality Modality Upper Extremities, Shoulder Left Magn etic Resonance 07/01/2024 8:46 AM EST Narrative 07/01/2024 8:47 AM EST ? [facility] ?[address] ?[place] [address] ? Magnetic Resonance Report ? Signed ? Patient: Alexander,Iris ?MR#: [id number] ?? 83 ? : 1970 ?Acct:[id number] ? Age/Sex: 54 / F ?ADM Date: 01/17/25 ? Loc: HO.MRI ? Attending Radha Reynolds MD ? Ordering Physician: Gracy Reynolds MD ?? Date of Service: 06/30/24 ?? Procedure(s): MR shoulder LT wo con ?? Accession Number(s): [id number] ? cc: Gracy Reynolds MD ? CLINICAL [...] MD in OV> ?07/01/24 0847 ? DD/ ? TD/TT: 07/01/24845 ? Associate Professor Of Pathology: ? Procedure Note Donenriquechandudieterter, Image - 07/01/2024 [place] [address] Magnetic Resonance Report Signed Patient: Carrol Munoz#: [id number] 83 : 1970Acct:[id number] Age/Sex: 54 / FADM Date: 06/30/24 Loc: HO.MRI Attending Dr: Gracy Reynolds MD Ordering Physician: Gracy Reynolds MD Date of Service: 06/30/24 Procedure(s): MR shoulder LT wo con Accession Number(s): [id number] cc: Gracy Reynolds MD CLINICAL HISTORY: chroninc [...] in OV> 07/01/2447 DD/ 5 TD/TT: 07/01/24845 Associate Professor Of Pathology: us Gracy Reynolds MD IMG MRI PROCEDURES Final Result * BI Mammogram Screening Tomosynthesis Bilateral (06/30/2024 7:45 AM EST) Anatomical Region Laterality Modality Breast Bilateral Mammography 06/30/2024 7:45 AM EST Narrative 07/09/2024 1:45 PM EST ? [facility] ?[address] ?[place] [address] ? Mammography Report ? Signed ? Patient: Alexander,Iris ?MR#: [id number] ?? 83 ? : 1970 ?Acct:[id number] ? Age/Sex: 54 / F ?ADM Date: 06/30/24 ? Loc: HO.MRI ? Attending Dr: Gracy Reynolds MD ? Ordering Physician: Gracy Reynolds MD ?Results: 2Benign F ?? indings ? Date of Service: 06/30/24 ?Follow Up: 1 Year From Orig ?? inal Mammogram ? Procedure(s): MM tomosynthesis screening BI ?? Accession Number(s): [id number] ? cc: Gracy Reynolds MD ? EXAMINATION: [...] DD/ 0745 ? TD/TT: 06/30/24 0800 ? Associate Professor Of Pathology: ? Procedure Note Roman, Image - 07/09/[address] [address] Mammography Report Signed Patient: Carrol Munoz#: [id number] 83 : 1970Acct:[id number] Age/Sex: 54 / FADM Date: 06/30/24 Loc: HO.MRI Attending Dr: Gracy Reynolds MD Ordering Physician: Gracy Reynolds MDResults: 2Benign F indings Date of Service: 06/30/24Follow Up: 1 Year From Orig inal Mammogram Procedure(s): MM tomosynthesis screening BI Accession Number(s): [id number] cc: Gracy Reynolds MD EXAMINATION: MM SCREENING [...] by: Mag Camacho DO 07/09/2024 01:42 PM [facility] [place] Dictated By: Mag Camacho DO Signed By: <Electronically signed by Mag Camacho DO in OV> 07/09/24 1342 DD/ 0745 TD/TT: 06/30/24 0800 Associate Professor Of Pathology: Gracy Reynolds MD IMG BI PROCEDURES Edited Result - Final * Hepatitis C Antibody with Reflex to HCV, RNA, Quantitative, Real-Time PCR (11/16/2023 9:51 AM EDT) Hepatitis C Antibody Nonreactive Nonreactive [facility] Comment:Antibodies to HCV no t detected; does not exclude early acuteHCV infection. Blood Venous blood specimen / Unknown 11/16/2023 9:51 AM EDT 11/16/2023 11:48 AM EDT Gracy Reynolds MD LAB BLOOD ORDERABLES Final Resul t [facility] [address] [place] [phone] * HIV-1/2 Antigen and Antibodies, Fourth Generation, with Reflexes (11/16/2023 9:51 AM EDT) HIV AB/AG Nonreactive Nonreactive [facility] Comment:HIV-1 p24 Ag and/or HIV-1/HIV-2 Ab not detected.A test result that is nonreactive does not exclude thepossibility of exposure to or infection with HIV-1 and/orHIV-2. Nonreactive results in this assay for individualswith prior exposure to HIV-1 and/or HIV-2 may be due toantigen and antibody levels that are below the limit ofdetection of this assay.The [employer] HIV Ag/Ab Combo assay result andsupplemental assay results should be interpreted inconjunction with the patient's clinical presentation,history and other laboratory results. If the results areinconsistent with clinical evidence, additional testing issuggested to confirm the result. Blood Venous blood specimen / Unknown 11/16/2023 9:51 AM EDT 11/16/2023 11:48 AM EDT Gracy Reynolds MD LAB BLOOD ORDERABLES Final Resul t [facility] [address] [place] [address] [phone] * Hm Pap Smear (02/08/2023) Pap Negative for intraephithelial lesion or malignancy Negative for intraephithelial lesion or malignancy, Other HPV Undetected Undetected, Indeterminate, Quantitative, Not Detected us Luis M Provider HEALTH MAINTENANCE Final Result from Last 3 Months or Most Recently Relevant to Health Maintenance Insurance [facility] Care Teams Field Marketing Associate Relationship Specialty Start Date End Date Gracy Reynolds MD [address] [place] [phone] PCP - General Family Medicine 01/27/22 Osmel Conn Cra OfficerAssociate Professor Of Library Science 01/04/24
--- OUTSIDE RECORDS SUMMARY | 2024-07-14 11:09 | XMS_ITS | Encounter Summary ---
Author Organization [facility] Address [address]t [place] [address] Care Team Providers Care Photonics Engineering Technologist Name Role Phone Gracy Reynolds MD Primary Care Provider [phone] Encounter Details Date Type Department Care Team (Late st Contact Info) Description 03/12/2023 Orders Only [facility] [address] [place] [address] [phone] Gracy Reynolds MD [address] [place] [address] [phone] Social History Tobacco Use Types Packs/Day Years [...] Description 08/16/2024 9:30 AM EST Office Visit [facility] [address] [place] [address] [phone] Gracy Reynolds MD [address] [place] [address] [phone] documented as of this encounter Visit Diagnoses Not on filedocumented in this encounter Additional Health Concerns Assessment Noted Time PHQ-9 Depression Total Score: 17 023 3:11 PM EDT documented as of this encounter Care Teams Photonics Engineering Technologist Relationship Specialty Start Date End Date Gracy Reynolds MD [address] [place] [address] PCP - General Family Medicine 01/27/22 Osmel Conn Chamber WorkerTransitions Manager 01/04/24 documented as of this encounter
--- OUTSIDE RECORDS SUMMARY | 2024-07-14 11:09 | XMS_ITS | Encounter Summary ---
Author Organization [employer] Address [address] [place] [address] Care Team Providers Care Benefits Consultant Name Role Phone Gracy Reynolds MD Primary Care Provider [phone] Encounter Details Date Type Department Care Team ([facility] st Contact Info) Description 11/16/2023 Orders Only [facility] [address] [place], [place] [phone] Gracy Reynolds MD [address] [place], [place] [phone] Social History Tobacco Use Types Packs/Day Years [...] Description 08/16/2024 9:30 AM EST Office Visit [facility] [address] [place] [address] Gracy Reynolds MD [address] [place] [address] documented as of this encounter Visit Diagnoses Not on filedocumented in this encounter Additional Health Concerns Assessment Noted Time PHQ-9 Depression Total Score: 0 11/16/19 24 9:15 AM EDT documented as of this encounter Care Teams Benefits Consultant Relationship Specialty Start Date End Date Gracy Reynolds MD [address] [place] [address] PCP - General Family Medicine 01/27/22 Osmel Conn Animal Care Service WorkerWarehouse Receiving Clerk 01/04/24 documented as of this encounter
--- OUTSIDE RECORDS SUMMARY | 2024-07-14 11:09 | XMS_ITS | Encounter Summary ---
Author Organization [employer] Address [address] [facility] 7t [place] [address] Care Team Providers Care Dairy Quality Assurance Officer Name Role Phone Gracy Reynolds MD Primary Care Provider Reason for Visit * Reason Onset Date Comments Durable Medical Equipment 03/29/2024 Encounter Details Date Type Department Care Team ([facility] st Contact Info) Description 03/29/2024 Telephone [facility] [address] [place], [place] [phone] Gracy Reynolds MD [address] [place] [address] Durable Medical Equipment Social History Tobacco Use Types Packs/Day Years [...] encounter Miscellaneous Notes * Telephone Encounter - Janna Griffith - 03/29/2024 12:46 PM EDT Tc from pt requesting a script for a shower chair, would like script faxed to [phone]. Pt statedhas a new insurance ( CCA ID # [id number] documented in this encounter Plan of Treatment Upcoming Encounters Date Type Department Care Team (Late st Contact Info) Description 08/16/2024 9:30 AM EST Office Visit [facility] [address] [place] [address] Gracy Reynolds MD [address] [place] [address] documented as of this encounter Visit Diagnoses Not on filedocumented in this encounter Additional Health Concerns Assessment Noted Time PHQ-9 Depression Total Score: 0 11/16/19 24 9:15 AM EDT documented as of this encounter Care Teams Dairy Quality Assurance Officer Relationship Specialty Start Date End Date Gracy Reynolds MD [address] [place] [address] PCP - General Family Medicine 01/27/22 Osmel Conn Mid Level Business AnalystStudent Nurse 01/04/24 documented as of this encounter
--- OUTSIDE RECORDS SUMMARY | 2024-07-14 11:09 | XMS_ITS | Encounter Summary ---
Author Organization [employer] Address [address] [place] [address] Care Team Providers Care Learning Design Specialist Name Role Phone Gracy Reynolds MD Primary Care Provider [phone] Encounter Details Date Type Department Care Team (Latest Contact Info) Description 06/19/2024 Travel Social History Tobacco Use Types Packs/Day Years [...] AM EST Office Visit [facility] [address] [place] [address] Gracy Reynolds MD [address] [place] [address] documented as of this encounter Visit Diagnoses Not on filedocumented in this encounter Additional Health Concerns Assessment Noted Time PHQ-9 Depression Total Score: 0 11/16/19 24 9:15 AM EDT documented as of this encounter Care Teams Learning Design Specialist Relationship Specialty Start Date End Date Gracy Reynolds MD [address] [place] [address] PCP - General Family Medicine 01/27/22 Osmel Conn Electrical Sign WirerOperational Risk Manager 01/04/24 documented as of this encounter
--- OUTSIDE RECORDS SUMMARY | 2024-07-14 11:09 | XMS_ITS | Encounter Summary ---
Author Organization [employer] Address [address] [facility] 7t [place] [address] Care Team Providers Care Plant Guard Name Role Phone Gracy Reynolds MD Primary Care Provider [phone] Reason for Visit * Reason Onset Date Comments Durable Medical Equipment 06/27/2024 Encounter Details Date Type Department Care Team ([facility] st Contact Info) Description 06/27/2024 Telephone [facility] [address] [place], [place] [phone] Gracy Reynolds MD [address] [place] [address] Durable Medical Equipment Social History Tobacco Use [...] encounter Miscellaneous Notes * Telephone Encounter - Abida Yap - 07/04/2024 11:43 AM EST DME RX for Wipes generated and placed on providers desk for review and signature. * Telephone Encounter - Vasyl Souza - 06/28/2024 9:05 AM EST Tc from pt returning call regarding prior message. Contact pt at [phone] * Telephone Encounter - Abida Yap - 06/27/2024 1:41 PM EST Please see below. Patients manager of care is requesting the following DME on the patients behalf.Please review and advise request and if approved please send message to [place] to generate RX. * Telephone Encounter - Abida Yap - 06/27/2024 1:41 PM EST ----- Message from Lenore Ying sent at 06/27/2024 12:16 PM EST ----- Regarding: Script Requests Contact: Mercedez, I am (4Th Grade Math Teacher Lenore Buck), 4Th Grade Math Teacher for [facility] [employer], requesting the following DME???s on behalf of patient. DME Item: Wipes Supportive DX: R32, N39.46, M50.30 If you should have any inquiries regarding this request, feel free to contact the 4Th Grade Math Teacher below. 4Th Grade Math Teacher: Lenore Buck E-mail: [email or web address] Pile Driver Operator: Covering Pile Driver Operator Mary Abernathy Phone: E-mail: [email or web address] Thanks in advance for your assistance with this request. Sincerely, [facility] [employer] documented in this encounter Plan of Treatment Upcoming Encounters Date Type Department Care Team (Late st Contact Info) Description 08/16/2024 9:30 AM EST Office Visit [facility] [address] [place] [address] Gracy Reynolds MD [address] [place] [address] documented as of this encounter Visit Diagnoses Not on filedocumented in this encounter Additional Health Concerns Assessment Noted Time PHQ-9 Depression Total Score: 0 11/16/19 24 9:15 AM EDT documented as of this encounter Care Teams Plant Guard Relationship Specialty Start Date End Date Gracy Reynolds MD [address] [place] [address] PCP - General Family Medicine 01/27/22 Osmel Conn Data Entry SupervisorResource Teacher 01/04/24 documented as of this encounter
--- OUTSIDE RECORDS SUMMARY | 2024-07-14 11:10 | XMS_ITS | Clinical Summary ---
Author Organization [facility] Address [address] [place] [address] Care Team Providers Care Director Name Role Phone Community, Pcp Primary Care Provider Unavailabl e Allergies Active Allergy Reactions Severity Noted Date Comments Shellfish Allergy 12/22/2019 Medications Medication Sig Dispensed Refills Start Date End Date Status benzoyl peroxide-erythromy sameera (BENZAMYCIN) gel Apply a thin layer to dry skin after cleansing twice daily 50 g 12/22/2019 Active tretinoin (RETIN-A) 0.025 % gel Apply small amount to affected areas at night 45 g 12/22/2019 Active etodolac (LODINE) 400 MG tablet Take 1 Tab by mouth 2 times daily. 60 Tab 12/22/2019 Active duloxetine (CYMBALTA) 30 MG capsule Take 1 Cap by mouth daily. 30 Cap 12/22/2019 Active fluticasone (FLOVENT HFA) 110 MCG/ACT inhaler Inhale 1 Puff into the lungs 2 times daily. 1 Inhaler 0 12/22/2019 Active ALBUTEROL SULFATE (PROAIR HFA) 108 (90 Base) MCG/ACT Aero Soln Inhale 2 Puffs into the lungs every 4 hours as needed for Shortness of Breath. 1 Inhaler 5 12/22/2019 Active montelukast (SINGULAIR) 10 MG tablet Take 1 Tab by mouth at bedtime. 30 Tab 12/22/2019 Active spironolactone (ALDACTONE) 50 MG tablet Take 1 Tab by mouth 2 times daily for 30 days. 60 Tab 12/22/2019 Active erythromycin with ethanol (EMGEL) 2 % gel Mix with benzyl peroxide and apply to cleanse face twice daily 30 g 12/29/2019 Active benzoyl peroxide 5 % gel Mix with erythromycin and apply to cleanse face twice daily 45 g 5 12/29/2019 Active Social History Tobacco Use Types Packs/Day Years Used Date Smoking Tobacco: Never Smokeless Tobacco: Never Sex Assigned at Date Recorded Not on file Last Filed Vital Signs Vital Sign Reading Time Taken Comments Blood Pressure 100/62 12/22/2019 1:06 PM EDT Pulse - - Temperature 36.8 ??C (98.2 ??F) 12/22/2019 1:06 PM ED T Respiratory Rate - - Oxygen Saturation - - Inhaled Oxygen Concentration - - Weight 70.3 kg (155 lb) 12/22/2019 1:06 PM EDT Height 167.6 cm (5' 6 ) 12/22/2019 1:06 PM EDT Body Mass Index 25.02 12/22/2019 1:06 PM EDT Plan of Treatment Health Maintenance Due Date Last Done Comments Covid-19 Vaccine (#1) 1972 CHOLESTEROL SCREENING 1992 CERVICAL CANCER SCREENING 1993 BASELINE HEALTH EXAM 40-64 2012 MAMMOGRAM 2012 DTAP/TDAP/TD (2 - Td or Tdap) 07/10/2021 07/10/2011 COLON CANCER SCREENING 2022 SHINGLES VACCINE (1 of 2) 2022 INFLUENZA (#1) 2024 BMI CHECK/ADVISE 06/14/2024 PNEUMOCOCCAL VACCINE FOR HIGH RISK PATIENTS (#1) 04/2701/14/2010 Care Teams Director Relationship Specialty Start Date End Date Community, Pcp PCP - General Internal Medicine 08/16/19
[2024-07-14 11:54] LABS: MANUAL DIFF FLAG NO
[2024-07-14 11:57] LABS: Basophils Percent Auto 0.8 % (0-2); Eosinophils Absolute Auto 0.2 X10*3/uL (0.0-0.4); Eosinophils Percent Auto 4.5 % (0-4); Hematocrit 36.1 % (37.0-47.0); Hemoglobin 12.2 g/dl (12.0-16.0); Imm Gran Abs Auto 0.02 X10*3/uL (0.00-0.03); Imm Gran Pct Auto 0.4 % (0.0-0.4); Lymphocytes Absolute Auto 1.1 X10*3/uL (1.2-4.9); Mean Corpuscular HGB Conc 33.8 g/dl (31.0-35.0); Mean Corpuscular Volume 91.9 fL (80.0-98.0); Monocytes Absolute Auto 0.5 X10*3/uL (0.1-1.2); Monocytes Percent Auto 9.4 % (2-11); Neutrophils Absolute Auto 3.1 x10*3/uL (2.0-8.3); Neutrophils Percent Auto 62.9 % (45-73); Platelet Count 165 X10*3/uL (160-400); Red Blood Count 3.93 X10*6/uL (4.20-5.50); Red Cell Distribution Width 10.9 % (11.0-16.0); White Blood Count 4.9 X10*3/uL (4.8-10.8)
[2024-07-14 12:51] LABS: Alanine Aminotransferase 28 U/L (0-31); Alkaline Phosphatase 56 U/L (39-117); Anion Gap 10 (12-20); Aspartate Amino Transferase 21 U/L (5-31); Bilirubin Direct 0.2 mg/dL (0.0-0.5); Bilirubin Total 0.6 mg/dL (0.0-1.0); Blood Urea Nitrogen 22 mg/dL (9-16); Calcium 9.2 mg/dL (8.4-10.2); Carbon Dioxide 30 mmol/L (22-29); Chloride 106 mmol/L (96-108); Cholesterol 143 mg/dL (<200); Estimated Glomerular Filt Rate > 60; Glucose Random 89 mg/dL (60-115); HDL Cholesterol 58 mg/dL (>40); LDL Cholesterol Calculated 77 mg/dL (<100); Potassium 3.8 mmol/L (3.3-5.1); Sodium 142 mmol/L (135-145); Total Protein 7.6 g/dL (6.5-8.0); Triglycerides 42 mg/dL (<150)
[2024-07-14 13:22] LABS: Vitamin D 25-OH Total 29.7 ng/mL (>30)
[2024-07-14 13:51] LABS: Reflex LDLD? No
== END 2024-07-14 10:27 | disposition home or self-care (01) ==
LOC: HO.10HDL 10:26
PROVIDERS: Visit Provider Family Medicine
DX: N95.1 Menopausal and female climacteric states (principal); B35.1 Tinea unguium; E55.9 Vitamin D deficiency, unspecified; I42.8 Other cardiomyopathies; Z13.6 Encounter for screening for cardiovascular disorders
CPT/HCPCS: 36415; 80048; 80061; 80076; 82306; 84443; 85025

== ENCOUNTER 2024-08-18 10:39 | Outpatient (AMB) | payer OTHER, SELFPAY ==
--- NOTE | 2024-08-18 10:45 | A.OFFVIS_ITS ---
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 Hx of Lyme Disease & Fibromyalgia. Patient was seen by her PCP and an MRI was done. Patient reports her pain has been present for over two months. Limited ROM that is affecting AODL. Her pain is mostly in her shoulder however at times her pain will radiate down her arm to her elbow. Intermittent numbness and tingling. She mentions pain in the middle of her lower back back. Also her 4th toe causes her pain and she unsure if these are connected to her shoulder. No previous tx. Denies injury Hx of tendonitis and injections given in the past however her symptoms feel different. IMPRESSION: 1. Inferior glenohumeral ligament tear. Allergies shellfish derived Allergy (Unknown, Verified 08/18/24 10:55) SWELLING AND HIVES shrimp Allergy (Unknown, Verified 08/18/24 10:55) ITCHING/SWELLING seafood Allergy (Unknown, Uncoded 08/18/24 10:55) Unknown Medication List - Last Reconciled 08/18/24 by Malika Cornejo PA-C albuterol sulfate 90 mcg/actuation (ProAir HFA) 1 inh inhalation QID albuterol sulfate mg inhalation benzoyl peroxide 10% 1 appl topical DAILY cetirizine (Zyrtec) 10 mg PO DAILY PRN cholecalciferol (vitamin D3) 50 mcg PO DAILY cholecalciferol (vitamin D3) 25 mcg PO QAM clindamycin phosphate 1% 1 appl topical DAILY diclofenac sodium 1% 2 grams topical QID duloxetine (Cymbalta) 60 mg PO DAILY fluticasone propionate 110 mcg/actuation 1 puff inhalation BID lidocaine 3.75% 1 appl topical BID lidocaine 5% (Lidoderm) 1 patch topical DAILY metronidazole mg PO montelukast (Singulair) 10 mg PO DAILY HPI 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 She states she is been experiencing discomfort for the last few months however she denies injury. She has discomfort with reaching and sleeping at night. She denies sensations of instability. She states she had injections in her shoulder many years ago and feels they never worked. She has had no other treatment to date. [facility] Medical History (Updated 08/18/24 @ 11:17 by Malika Cornejo PA-C) Fibromyalgia Chronic arthralgias of knees and hips H/o Lyme disease Depression Asthma Anemia Surgical History (Updated 08/18/24 @ 10:59 by YESICA Sherwood) Hx of tubal ligation No history of previous surgery Social History (Updated 08/18/24 @ 10:59 by YESICA Sherwood) Patient Tobacco Use Status: Never used Tobacco Current occupational status: disabled Current occupation: right hand dominant Review of Systems Const All systems reviewed & are unremarkable except as noted in HPI and below Physical Exam Vital Signs: BMI result Body Mass Index 27.9 Const General: cooperative and no acute distress Orientation/consciousness: patient oriented x3 Resp Effort & Inspection: normal respiratory effort and able to speak in complete sentences Cardio Peripheral pulses: Peripheral pulses 2+ throughout Neuro General: patient oriented x3 Extrem Other: Left shoulder normal to inspection she has significant tenderness over the proximal biceps tendon and limited range of motion forward flexion to 90 external rotation to 40 and inability to perform internal rotation. Results Reviewed Results Reviewed: MRI IMPRESSION: 1. Inferior glenohumeral ligament tear. Assessment & Plan Assessment & Plan (1) Adhesive capsulitis of left shoulder: Code(s): M75.02 - Adhesive capsulitis of left shoulder Category: Medical Plan: We discussed options today which include glenohumeral joint injection to ease her symptoms of what appears to be an adhesive capsulitis. She declined injection at this time. I did stress the importance of working with physical therapy to work on aggressive range of motion. I did explain that this is something that could take weeks to months to almost a year for full recovery as there are different stages in adhesive capsulitis. If she does decide she wants to do an injection in the near future she can contact our office and I will schedule her for a glenohumeral joint injection under fluoroscopy at the hospital she is content with this plan and will otherwise see me back in 3 months for re-evaluation, sooner if needed. Orders: Orders PT Evaluation and Treatment Today M75.02 - Adhesive capsulitis of left shoulder Medications: New ibuprofen 800 mg PO Q8H 30 days PRN 90 tabs 3RF pain Coding Level of Care Code New Pt Level 3 (14827) Complex EM visit Add On G2211 Diagnoses Adhesive capsulitis of left shoulder M75.02
[2024-08-18 10:59] VITALS: BMI 27.9
--- OUTSIDE RECORDS SUMMARY | 2024-08-18 12:02 | XMS_ITS | Encounter Summary ---
Author Organization [facility] Address [address] [facility] 7t [place] [address] Care Team Providers Care Program Therapist Name Role Phone Gracy Reynolds MD Primary Care Provider [phone] Reason for Visit * Reason Onset Date Comments Nurse Triage 12/25/2022 Encounter Details Date Type Department Care Team ([facility] st Contact Info) Description 12/25/2022 Telephone [facility] [address] [place], [place] [phone] Gracy Reynolds MD [address] [place] [address] Nurse Triage Social History Tobacco Use Types [...] Triage call Pt reports being seen in [facility] 12/23 for backpain. Now Pt reports a [...] Care Team (Late st Contact Info) Description 09/18/2024 11:00 AM EDT Clinical Support [facility] [address] [place] [address] documented as of this encounter Visit Diagnoses Not on filedocumented in this encounter Additional Health Concerns Assessment Noted Time PHQ-9 Depression Total Score: 17 023 3:11 PM EDT documented as of this encounter Care Teams Program Therapist Relationship Specialty Start Date End Date Gracy Reynolds MD [address] [place] [address] PCP - General Family Medicine 01/27/22 Osmel Conn Investigation LieutenantFood Concession Manager 01/04/24 documented as of this encounter
--- OUTSIDE RECORDS SUMMARY | 2024-08-18 12:02 | XMS_ITS | Encounter Summary ---
Author Organization [employer] Address [address] [facility] 7[address] [place] [address] Care Team Providers Care Water Maintenance Supervisor Name Role Phone Gracy Reynolds MD Primary Care Provider [phone] Encounter Details Date Type Department Care Team (Latest Contact Info) Description 08/16/2024 9:30 AM EST Office Visit [facility] [address] [place], [place] [phone] Gracy Reynolds MD [address] [place], [place] [phone] Moderate persistent asthma without complication (Primary Dx); Other cardiomyopathy (CMS/HCC); Mixed stress and urge urinary incontinence; Chronic left shoulder pain; History of Lyme disease; Onychomycosis Social History Tobacco Use Types Packs/Day Years Used Date Smoking Tobacco: Never Passive Smoke Exposure: Never Smokeless Tobacco: Never Alcohol Use Standard Drinks/Week Comments Never 0 (1 standard drink = 0.6 oz pur e alcohol) Depression Answer Date Recorded Patient Health Questionnaire-9 Score 7 08/16/2024 Patient Health Questionnaire-9 Score 7 08/16/2024 Last PHQ-9: Questionnaire Data Not on file 0 08/16/2024 Housing Stability Answer Date Recorded What is [...] Answer Date Recorded Patient Health Questionnaire-2 Score 2 08/16/2024 Comments Unknown Sex and Gender Information Value Date Recorded Sex Assigned at Female 04/13/2022 10:18 AM EDT Legal Sex Female 10:18 AM EDT Gender Identity Female 04/13/2022 10:18 AM EDT Sexual Orientation Straight 04/13/2022 10 :18 AM EDT documented as of this encounter Last Filed Vital Signs Vital Sign Reading Time Taken Comments Blood Pressure 132/89 08/16/2024 10:55 PM EST Pulse 76 08/16/2024 10:54 AM EST Temperature 36.1 ??C (96.9 ??F) 08/16/2024 10:[address] Respiratory Rate 17 08/16/2024 10:54 AM EST Oxygen Saturation 99% 08/16/2024 10:54 AM EST Inhaled Oxygen Concentration - - Weight 78.7 kg (173 lb 6.4 oz) 08/16/2024 10:54 AM EST Height - - Body Mass Index 27.99 04/05/2024 8:57 AM EDT documented in this encounter Miscellaneous Notes * Assessment & Plan Note - Imani Fernandes MA - 08/16/2024 8:53 AM ESTAssociated Problem(s): History of Lyme disease - Dx 2009 - pt developed heart conduction abnormality, which seems to have resolved - no significant inflammatory arthritis * Assessment & Plan Note - Imani Fernandes MA - 08/16/2024 8:53 AM ESTAssociated Problem(s): Chronic left shoulder pain - XR showed no tears or fractures in her shoulder -pt will get an MRI -She was referred to PT but she admits she never went because she thinks she can do the same exercises at home * Assessment & Plan Note - Imani Fernandes MA - 08/16/2024 8:53 AM ESTAssociated Problem(s): Onychomycosis - she was unable to receive a topical medication (urea cream) because it was not covered by her insurance - she is willing to try oral antifungal due to severe disease - discussed about side effect of terbinafine. Will check hepatic panel 3-4 weeks after starting it and after the treatment * Assessment & Plan Note - Imani Fernandes MA - 08/16/2024 8:52 AM ESTAssociated Problem(s): Mixed stress and urge urinary incontinence - seen by UroGYN in the past for pelvic organ prolapse - prescribe bed pads - pt does not want to try any medication - exercise pelvic floor muscle - she requests DME: wet wipes * Assessment & Plan Note - Imani Fernandes MA - 08/16/2024 8:52 AM ESTAssociated Problem(s): Asthma - moderate persistent - continue mometasone ICS 100 mcg bid - continue Montelukast - continue albuterol HFA prn documented in this encounter Plan of Treatment Upcoming Encounters Date Type Department Care Team (Late st Contact Info) Description 09/18/2024 11:00 AM EDT Clinical Support [facility] [address] [place] [address] documented as of this encounter Visit Diagnoses Diagnosis Moderate persistent asthma without complication- Primary Other cardiomyopathy (CMS/HCC) Mixed stress and urge urinary incontinence Mixed incontinence urge and stress (male)(female) Chronic left shoulder pain Pain in joint, shoulder region History of Lyme disease Onychomycosis Dermatophytosis of nail documented in this encounter Additional Health Concerns Assessment Noted Time PHQ-9 Depression Total Score: 7 08/17/19 25 11:33 AM EST documented as of this encounter Care Teams Water Maintenance Supervisor Relationship Specialty Start Date End Date Gracy Reynolds MD [address] [place] [address] PCP - General Family Medicine 01/27/22 Osmel Conn Marriage TherapistContinuous Absorption Process Operator 01/04/24 documented as of this encounter
--- OUTSIDE RECORDS SUMMARY | 2024-08-18 12:02 | XMS_ITS | Encounter Summary ---
Author Organization [employer] Address [address] [facility] 7[address] [place] [address] Care Team Providers Care Bible Worker Name Role Phone Gracy Reynolds MD Primary Care Provider [phone] Reason for Visit * Reason Onset Date Comments Call Back Request 07/04/2024 Encounter Details Date Type Department Care Team ([facility] Contact Info) Description 07/04/[address] [facility] [address] [place], [place] [phone] Gracy Reynolds MD [address] [place] [address] Call Back Request Social History Tobacco Use [...] in Clinic or ED. Reviewed hours of [facility] and also on-call nurse at [facility]. Pt asked what can ED do for [...] PCP will be taken with her . [phone] documented in this encounter Plan of Treatment Upcoming Encounters Date Type Department Care Team (Late st Contact Info) Description 09/18/2024 11:00 AM EDT Clinical Support [address] [address] documented as of this encounter Visit Diagnoses Not on filedocumented in this encounter Additional Health Concerns Assessment Noted Time PHQ-9 Depression Total Score: 0 11/16/19 9:15 AM EDT documented as of this encounter Care Teams Bible Worker Relationship Specialty Start Date End Date Gracy Reynolds MD [address] [place] [address] PCP - General Family Medicine 01/27/22 Osmel Conn Slurry Tank OperatorBox Lining Machine Feeder 01/04/24 documented as of this encounter
--- OUTSIDE RECORDS SUMMARY | 2024-08-18 12:02 | XMS_ITS | Encounter Summary ---
Author Organization [employer] Address [address] [facility] [address] 7[address] [place] [address] Care Team Providers Care Finance Director Name Role Phone Gracy Reynolds MD Primary Care Provider [phone] Encounter Details Date Type Department Care Team ([facility] st Contact Info) Description 08/16/2024 Telephone [facility] [address] [place], [place] [phone] Gracy Reynolds MD [address] [place], [place] [phone] Social History Tobacco Use Types Packs/Day Years [...] encounter Miscellaneous Notes * Telephone Encounter - Crissy Negro - 08/16/2024 9:58 AM EST Pt no showed to follow up apt on 08/16/2024 letter will be sent out . documented in this encounter Plan of Treatment Upcoming Encounters Date Type Department Care Team (Late st Contact Info) Description 09/18/2024 11:00 AM EDT Clinical Support [facility] [address] [place] [address] documented as of this encounter Visit Diagnoses Not on filedocumented in this encounter Additional Health Concerns Assessment Noted Time PHQ-9 Depression Total Score: 7 08/17/19 25 11:33 AM EST documented as of this encounter Care Teams Finance Director Relationship Specialty Start Date End Date Gracy Reynolds MD [address] [place] [address] PCP - General Family Medicine 01/27/22 Osmel Conn International Relations TeacherAgronomy Technician 01/04/24 documented as of this encounter
--- OUTSIDE RECORDS SUMMARY | 2024-08-18 12:02 | XMS_ITS | Continuity of Care Document ---
Author Organization [facility] Address [address] [place] [address]- Care Team Providers Care Functional Tester Name Role Phone Gail DUQUE, Gracy Primary Care Physician [phone] [id number] Date(s): 07/27/24 - 08/03/24 [facility] [address] [place] [address]- Attending Physician: Erika Higgins MD Encounter Type: Office Visit Allergies, Adverse Reactions, Alerts Substance Criticality Severity Reaction Reaction Severity Status Cats Active Dust Active Seafood itching, swelling Ac tive iodine Unknown Active Other Food Allergy crab - it [place], swelling Active Lobster itching, swelling Ac tive Shrimp itching, swelling Ac tive Mildew Active Immunizations Given and Recorded Vaccine Date Status Refusal Reason influenza virus vaccine, inactivated 04/05/24 Gorge rded influenza virus vaccine, inactivated 02/23/23 Gorge rded influenza virus vaccine, inactivated 03/31/22 Gorge rded influenza virus vaccine, inactivated 03/05/21 Gorge rded influenza virus vaccine, inactivated 05/03/20 Gorge rded influenza virus vaccine, inactivated 03/09/19 Gorge rded influenza virus vaccine, inactivated 03/31/11 Gorge rded SARS-CoV-2(COVID-19)mRNA-LNP vac([id number]) 04/05/24 Recorded pneumococcal 20-valent conjugate vaccine 11/16/23 Recorded zoster vaccine, inactivated 04/26/23 Recorded zoster vaccine, inactivated 02/23/23 Recorded [id number] 12y+ bivalent booster vax 03/31/22 Recorded tetanus/diphtheria/pertussis, acel(Tdap) 09/05/21 Recorded tetanus/diphtheria/pertussis, acel(Tdap) 07/10/11 Recorded SARS-CoV-2 (COVID-19) mRNA-1273 vaccine 05/22/21 R ecorded SARS-CoV-2 (COVID-19) mRNA-1273 vaccine 10/23/20 R ecorded SARS-CoV-2 (COVID-19) mRNA-1273 vaccine 09/25/20 R ecorded pneumococcal 23-valent vaccine 01/14/10 Recorded tetanus-diphtheria toxoids (Td) 08/24/08 Recorded Medications albuterol 90 mcg/inh inhalation powder 2 puffs, Inhalation, Every 6 hours, 0 Refills, Maintenance, 10/21/21 3:41:00 PM EDT, Partial fill upon patient request if the prescription is for a schedule II opioid drug. Start Date: 10/21/21 Status: Ordered Repeat number: 1 Asmanex HFA 100 mcg/inh inhalation aerosol 13 Gm, 0 Refill(s), INHALE 1 PUFF TWICE A DAY. RINSE MOUTH AFTER EACH USE, 0 Refills, 07/27/24 10:30:00 AM EST, Partial fill upon patient request if the prescription is for a schedule II opioid drug. Start Date: 07/27/24 Status: Ordered Repeat number: 1 benzoyl peroxide 2.5% topical cream 0 Refills, Maintenance, 10/21/21 3:40:00 PM EDT, Partial fill upon patient request if the prescription is for a schedule II opioid drug. Start Date: 10/21/21 Status: Ordered Repeat number: 1 Cholecalciferol By Mouth, Daily, 0 Refills, Maintenance, 10/21/21 3:41:00 PM EDT, Partial fill upon patient request if the prescription is for a schedule II opioid drug. Start Date: 10/21/21 Status: Ordered Repeat number: 1 Clindamycin Maintenance, 10/21/21 3:40:00 PM EDT Start Date: 10/21/21 Status: Ordered Repeat number: 1 Duloxetine = 60 mg, By Mouth, 0 Refills, Maintenance, 10/21/21 3:40:00 PM EDT, Partial fill upon patient request if the prescription is for a schedule II opioid drug. Start Date: 10/21/21 Status: Ordered Repeat number: 1 Flovent HFA Inhalation, 2 times a day, 0 Refills, Maintenance, 10/21/21 3:41:00 PM EDT, Partial fill upon patient request if the prescription is for a schedule II opioid drug. Start Date: 10/21/21 Status: Ordered Repeat number: 1 Gabapentin = 100 mg, By Mouth, 3 times a day, as needed, 0 Refills, Maintenance, 10/21/21 3:40:00 PM EDT, Partial fill upon patient request if the prescription is for a schedule II opioid drug. Start Date: 10/21/21 Status: Ordered Repeat number: 1 Lidocaine IV Infusion, Once, 0 Refills, Maintenance, 10/21/21 3:40:00 PM EDT, Partial fill upon patient request if the prescription is for a schedule II opioid drug. Start Date: 10/21/21 Status: Ordered Repeat number: 1 lidocaine 5% topical film 1 patch, Topically, Daily, PRN Pain , Mild, remove after 12 hours, # 13 each, 0 Refills, Maintenance, 02/08/23 9:26:00 AM EDT, Film, Partial fill upon patient request if the prescription is for a schedule II opioid drug. Start Date: 02/08/23 Status: Ordered Quantity: 13.0 Unit: each Repeat number: 1 meloxicam 7.5 mg oral tablet 30 each, 0 Refill(s), TAKE 1 TABLET BY MOUTH IF NEEDED IN THE MORNING AND AT BEDTIME FOR MODERATE PAIN, 0 Refills, 07/27/24 10:16:00 AM EST, Partial fill upon patient request if the prescription is for a schedule II opioid drug. Start Date: 07/27/24 Status: Ordered Repeat number: 1 meloxicam 7.5 mg oral tablet 30 each, 0 Refill(s), TAKE 1 TABLET BY MOUTH IF NEEDED IN THE MORNING AND AT BEDTIME FOR MODERATE PAIN, 0 Refills, 07/27/24 10:30:00 AM EST, Partial fill upon patient request if the prescription is for a schedule II opioid drug. Start Date: 07/27/24 Status: Ordered Repeat number: 1 metroNIDAZOLE 500 mg oral tablet 1 tablet = 500 mg, By Mouth, Every 12 hours, for 7 days, do not drink alcohol not to exceed 4 g/daymay take with food to minimize abdominal discomfort, # 14 tablet, 0 Refills, Acute 08/10/24 2:09:00 PM EST, 08/03/24 2:09:00 PM EST, Tablet, [facility]/pharmacy #[id number], Partial fill upon patient request if theprescription is for a schedule II opioid drug., 168, cm, 07/27/24 10:13:00 EST, Height, 76.9, kg, 8:51:00 EDT, Dry Weight Start Date: 08/03/24 Stop Date: 08/10/24 Status: Ordered Quantity: 14.0 Unit: tablet Repeat number: 1 Montelukast = 10 mg, By Mouth, Daily, 0 Refills, Maintenance, 10/21/21 3:41:00 PM EDT, Partial fill upon patientrequest if the prescription is for a schedule II opioid drug. Start Date: 10/21/21 Status: Ordered Repeat number: 1 terbinafine 250 mg oral tablet 90 each, 0 Refill(s), TAKE 1 TABLET (250 MG) BY MOUTH ONCE PER DAY., 0 Refills, 07/27/24 10:16:00 AMEST, Partial fill upon patient request if the prescription is for a schedule II opioid drug. Start Date: 07/27/24 Status: Ordered Repeat number: 1 Vitamin D3 oral tablet 1 tablet = 10 mcg, By Mouth, Daily, # 30 tablet, 0 Refills, Maintenance, 02/08/23 9:23:00 AM EDT, Tablet, Partial fill upon patient request if the prescription is for a schedule II opioid drug. Start Date: 02/08/23 Status: Ordered Quantity: 30.0 Unit: tablet Repeat number: 1 Problem List Condition Confirmation Course Effective Dates Status Health St atus Informant Fibromyalgia Confirmed Active Perimenopause Confirmed Active Vital Signs Most recent to oldest [Reference Range]: 1 Height 168 cm (07/27/24 10:13 AM) Weight 78.3 kg (07/27/24 10:13 AM) Body Mass Index [18.5-24.99 kg/m2] 27.74 kg/m2 *H* (07/27/24 10:13 AM) Blood Pressure [90-138/55-84 mm Hg] 102/ 62mm Hg (07/27/24 10:13 AM) Blood pressure sites Arm, left (07/27/24 10:13 AM) Weight Obtained Via Standing scale (07/27/24 10:13 AM) Social History Social History Type Response Smoking Status Never (less than 100 in lifetime) entered on: 11/26/22 Sex Sex Representation Female (finding) Note * Imani Meza: PERFORM Event Display: Patient Education/Instruction Authored Date: [id number] Ambulatory Adult Visit Summary [facility] [address] [facility] [address] [place] [address] Name: FARNAZ CORRIGAN : 1970?? Visit: 07/27/2024 09:58?? Ambulatory Visit Instructions ?? Your Care Team Primary Care Provider Gail DUQUE , Gracy? This Visit Provider Gisela DUQUE, Erika Lira Your Diagnosis Abdominal pain, LLQ (left lower quadrant) Vitals Signs Systolic Blood Pressure: 102 mm Hg Height: 168 cm Diastolic Blood Pressure: 62 mm Hg Weight: 78.3 kg ?? Body Mass Index:??27.74 kg/m2??High ?? Body surface area: 1.91 What to do next Follow-Up Appointments Follow Up with??[facility] When:??Only if needed Where: [address] [place] [phone] Future Orders Complete Urinalysis/Reflex Culture (Urinalysis Complete/Reflex Culture) - Routine, Once, Collected,07/27/24 10:23:00 EST, Order for Today, [facility], Urine?? Medications The list below reflects the information in our records and provided by you today along with any changes made during this visit. Please continue your medications until treatment is completed or stopped by your provider. If this is different from the information you have or there are other questions,please contact the prescribing provider. What How Much When Instructions Unchanged Albuterol (albuterol 90 mcg/ inh inhalation powder) 2 puff(s) Inhalation Every 6 hours Unchanged Benzoyl Peroxide Topical (benzoyl peroxide 2.5% topical cream) Unchanged Cholecalciferol Oral Daily Unchanged Cholecalciferol (Vitamin D3 oral tablet) 1 tab(s) Oral Daily Unchanged Clindamycin Unchanged Duloxetine 60 Milligram Oral Unchanged Fluticasone (Flovent HFA) Inhalation Twice a day Unchanged Gabapentin 100 Milligram Oral 3 times a day as needed ?? Unchanged Lidocaine Intravenous Infusion Once Unchanged Lidocaine Topical (lidocaine 5% topical film) 1 patch(es) Topically Daily as needed for Pain , Mild remove after 12 hours ?? Unchanged Meloxicam (meloxicam 7.5 mg oral tablet) 30 each, 0 Refill(s), TAKE 1 TABLET BY MOUTH IF NEEDED IN THE MORNING AND AT BEDTIME FOR MODERATE PAIN ?? Unchanged Montelukast 10 Milligram Oral Daily Unchanged Terbinafine (terbinafine 250 mg oral tablet) 90 each, 0 Refill(s), TAKE 1 TABLET (250 MG) BY MOUTH ONCE PER DAY. ?? Test Performed Below is a partial list of the tests performed during your Visit. You may have had other tests and procedures not included in this list. Please discuss all test results with your provider. Urinalysis Complete/Reflex Culture?-- Results Pending -- Medications and Immunizations Administered Medications Given During Visit No medications given during this visit.?? Allergies (NKA means No Known Allergies) Cats Dust Lobster??(itching, swelling) Mildew Other Food Allergy??(crab - itching, swelling) Seafood??(itching, swelling) Shrimp??(itching, swelling) iodine??(Unknown) Common Emergency Awareness Tips IS IT A STROKE? Act FAST and Check for these signs: FACE Does the face look uneven? ARM Does one arm drift down? SPEECH Does their speech sound strange? TIME Call at any sign of stroke ?? Heart Attack Signs Chest discomfort: Most heart attacks involve discomfort in the center of the chest and lasts more than a few minutes, or goes away and comes back. It can feel like uncomfortable pressure, squeezing, fullness or pain. Discomfort in upper body: Symptoms can include pain or discomfort in one or both arms, back, neck, jaw or stomach. Shortness of breath: With or without discomfort. Other signs: Breaking out in a cold sweat, nausea, or lightheaded. Remember, MINUTES DO MATTER. If you experience any of these heart attack warning signs, call to get immediate medical attention! ?? Smoking can increase your chances of developing chronic health problems and can cause harmful effects to other family members in your house. If you smoke, you are strongly encouraged to quit. Please call [facility] at [phone] or 5-874-537[employer] ([phone]) or log in to [email or web address] for referrals to smoking cessation programs. ?? The National Suicide Prevention Hotline is available 04/01 if you or someone you know needs to find a reason to keep living. By calling 3-490-006-[employer] (4367) you'll be connected to a skilled, trained counselor at a crisis center in your area. [facility] You can view and manage your care through the patient portal or by using a health care france of your choosing. [employer] is a website that allows you to securely view your medical information including your hospital discharge summary, office visit summaries, medications and follow-up visits. You can also request appointments, renew medications, and request access to your medical information using a health care france of your choosing, or just ask a question. You can enroll at [email or web address] or register during your next office visit. [facility], in keeping with [facility] guidance, no longer requires face masks for staff, patientsor visitors in most situations. Similiar to time spent indoors at other locations, there is the chance that you were exposed to repiratory viruses during your time with us (such as flu or COVID-19). If you develop symptoms concerning for a viral respiratory infection, please seek testing (and treatment if indicated) from your medical provider or home test kit. ?? Disclaimer: The information provided is of a general nature and is intended to be used in conjunction with the recommendations and advice of your health care practitioner. Every effort has been made to ensure that the information provided is accurate and complete at the time it is provided to you however, as your needs change, or, as new information becomes available, different or additional instructions may be required. ?? If you have questions, please consult with your primary care provider or pharmacist, as appropriate. This information is not intended to serve as substitution for assessment and evaluation by a qualified health care provider. If you do not have a primary care provider, you may find a [facility] provider by calling [facility] at [phone]. Patient Care team information Care Team Personnel Name: Gracy Reynolds MD Position: S Outreach Member Role: PCP Address: [address] [place] [address] Telecom: Care Team Related Persons Name: TREE JAIME Insurance Providers Guarantor name: [employer] Health Plan Information #: 1 Payer: [facility] Member Number: [id number] Policy Number: [employer]RA Group Number: [employer] Health Plan Information #: 2 Payer: [facility] Member Number: [id number] Policy Number: [employer]RA Group Number: [id number]
--- OUTSIDE RECORDS SUMMARY | 2024-08-18 12:02 | XMS_ITS | Encounter Summary ---
Author Organization [employer] Address [address] [facility] [address] [place] [address] Care Team Providers Care Airways Operations Specialist Name Role Phone Gracy Reynolds MD Primary Care Provider [phone] Reason for Visit * Reason Onset Date Comments Letter for School/Work 10/05/2022 Encounter Details Date Type Department Care Team ([facility] st Contact Info) Description 10/05/2022 Telephone [facility] [address] [place], [place] [phone] Gracy Reynolds MD [address] [place] [address] Letter for School/Work Social History Tobacco Use [...] end of September. Please contact pt at [phone] documented in this encounter Plan of Treatment Upcoming Encounters Date Type Department Care Team (Late st Contact Info) Description 09/18/2024 11:00 AM EDT Clinical Support [facility] [address] [place] [address] documented as of this encounter Visit Diagnoses Not on filedocumented in this encounter Additional Health Concerns Assessment Noted Time PHQ-9 Depression Total Score: 17 023 3:11 PM EDT documented as of this encounter Care Teams Airways Operations Specialist Relationship Specialty Start Date End Date Gracy Reynolds MD [address] [place] [address] PCP - General Family Medicine 01/27/22 Osmel Conn Paver OperatorHammer Driver 01/04/24 documented as of this encounter
--- OUTSIDE RECORDS SUMMARY | 2024-08-18 12:02 | XMS_ITS | Encounter Summary ---
Author Organization [facility] Address [address] [place] [address] Care Team Providers Care Packaging Line Operator Name Role Phone Gracy Reynolds MD Primary Care Provider [phone] Reason for Visit * Reason Onset Date Comments Nurse Triage 07/04/2024 Encounter Details Date Type Department Care Team ([facility] st Contact Info) Description 07/04/2024 Telephone [facility] [address] [place], [place] [id number] Gracy Reynolds MD [address] [place] [address] Nurse Triage Social History Tobacco Use Types [...] encounter Miscellaneous Notes * Telephone Encounter - Blu Alexander - 07/04/2024 12:45 PM EST Symptom: Shoulder Pain - Not From Injury Outcome: Schedule an urgent appointment (within 1 hour) or talk to a nurse or provider soon Reason: Can't use the shoulder normally Please contact pt at [phone]. documented in this encounter Plan of Treatment Upcoming Encounters Date Type Department Care Team (Late st Contact Info) Description 09/18/2024 11:00 AM EDT Clinical Support [facility] [address] [place] [address] documented as of this encounter Visit Diagnoses Not on filedocumented in this encounter Additional Health Concerns Assessment Noted Time PHQ-9 Depression Total Score: 0 11/16/19 9:15 AM EDT documented as of this encounter Care Teams Packaging Line Operator Relationship Specialty Start Date End Date Gracy Reynolds MD [address] [place] [address] PCP - General Family Medicine 01/27/22 [employer] 01/04/24 documented as of this encounter
--- OUTSIDE RECORDS SUMMARY | 2024-08-18 12:02 | XMS_ITS | Clinical Summary ---
Author Organization [employer] Address [address] [place] [address] Care Team Providers Care Background Investigator Name Role Phone Gracy Reynolds MD Primary Care Provider [phone] Allergies Active Allergy Reactions Criticality Noted Date Comments Cat Dander 05/19/2023 Iodine Unknown 08/18/2010 Shellfish Allergy Itching 12/22/2019 LOBSTER Other reaction(s): itching, swelling Medications EPINEPHrine (Epipen) 0.3 MG/0.3ML injection syringe Inject 0.3 mL (0.3 mg) as directed 1 (one) time if needed for anaphylaxis. Inject into upper leg. Call 911 after use. 1 each 2 4 Active DULoxetine (Cymbalta) [address] capsule TAKE 1 CAPSULE BY MOUTH EVERY DAY 90 capsule 1 4 Active terbinafine (LamISIL) 250 MG tabletIndicatio ns:Onychomycosi s Take 1 tablet (250 mg) by mouth Once per day. 90 tablet 5 09/18/19 25 Active Benzoyl Peroxide Wash 5 % external wash APPLY TO AFFECTED AREA TOPICALLY EVERY DAY 236 mL 11 5 Active lidocaine (Lidoderm) 5 % patch PLACE 1 PATCH ONTO THE SKIN DAILY. REMOVE & DISCARD PATCH WITHIN 12 HOURS OR DIRECTED BY 30 patch 11 5 Active Mometasone Furoate (Asmanex HFA) 100 MCG/ACT aerosol Take 1 puff twice a day. Rinse mouth after each use. 13 g 11 5 Active albuterol (2.5 MG/3ML) 0.083% nebulizer solution INHALE CONTENTS OF 1 VIAL VIA NEBULIZER EVERY 4 HOURS IF NEEDED FOR WHEEZING OR SHORTNESS OF BREATH (MAXIMUM 4/DAY) 75 mL 1 5 Active cholecalciferol VITAMIN D (Vitamin D-3) 50 MCG (2000 UT) tablet Take 1 tablet (50 mcg) by mouth Once per day. 90 tablet 3 5 Active albuterol (Ventolin HFA) 108 (90 Base) MCG/ACT inhaler INHALE 2 PUFFS EVERY 4 (FOUR) HOURS IF NEEDED FOR WHEEZING OR SHORTNESS OF BREATH. 18 g 1 5 Active meloxicam (Mobic) 7.5 MG tablet Take 1 tablet (7.5 mg) by mouth if needed in the morning and at bedtime for moderate pain. 30 tablet 1 5 07/07/19 26 Active Active Problems Problem Noted Date Diagnosed Date Onychomycosis 04/05/2024 Assessment & Plan (08/16/2024 8:53 AM EST): - she was unable to receive a topical medication (urea cream) because it was not covered by her insurance - she is willing to try oral antifungal due to severe disease - discussed about side effect of terbinafine. Will check hepatic panel 3-4 weeks after starting it and after the treatment Assessment & Plan (06/19/2024 5:07 PM EST): [...] left shoulder pain 04/05/2024 Assessment & Plan (08/16/2024 8:53 AM EST): - XR showed no tears or fractures in her shoulder -pt will get an MRI -She was referred to PT but she admits she never went because she thinks she can do the same exercises at home Assessment & Plan (06/19/2024 4:21 PM EST): [...] (06/19/2024 5:14 PM EST): - seen by UroGYN in November [...] of Lyme disease 01/15/2023 Assessment & Plan (08/16/2024 8:53 AM EST): - Dx 2009 - pt developed heart conduction abnormality, which seems to have resolved - no significant inflammatory arthritis Assessment & Plan (06/19/2024 5:09 PM EST): - Dx 2009 - pt developed heart conduction abnormality, which seems to have resolved - no significant inflammatory arthritis Assessment & Plan (11/16/2023 5:52 PM EDT): - Dx 2009 - pt developed heart conduction abnormality, which seems to have resolved - no significant inflammatory arthritis Assessment & Plan (05/25/2023 11:51 AM EST): - Dx 2009 - pt developed heart conduction abnormality, which seems to have resolved - no significant inflammatory arthritis Assessment & Plan (01/15/2023 5:19 PM EDT): - Dx 2009 - pt developed heart conduction abnormality, which seems to have resolved - no significant inflammatory arthritis History of shingles 01/14/2023 Fibromyalgia 09/28/2022 Assessment & Plan (04/05/2024 9:09 AM EDT): - continue duloexetine, which is prescribed by S provider at [facility] - she has tried gabapentin, cyclobenzaprine, and diclofenac gel which she did not take because she dislikes medications - restarted gabapentin in December when she was seen for Shingles Assessment & Plan (11/16/2023 5:51 PM EDT): - continue duloexetine, which is prescribed by [facility] provider at [facility] - she has tried gabapentin, cyclobenzaprine, and diclofenac gel which she did not take because she dislikes medications - restarted gabapentin in December when she was seen for Shingles Assessment & Plan (07/16/2023 9:41 AM EST): - restarted duloexetine, which is prescribed by [facility] provider at [facility] - she has tried gabapentin, cyclobenzaprine, and diclofenac gel which she did not take because she dislikes medications - restarted gabapentin in December when she was seen for Shingles Assessment & Plan (05/25/2023 11:51 AM EST): - restarted duloexetine, which is prescribed by S provider at [facility] - she has tried gabapentin, cyclobenzaprine, and [...] urge urinary incontinence 09/28 Assessment & Plan (08/16/2024 8:52 AM EST): - seen by [facility] in the past for pelvic organ prolapse - prescribe bed pads - pt does not want to try any medication - exercise pelvic floor muscle - she requests DME: wet wipes Assessment & Plan (06/25/2024 11:13 AM EST): - seen by [facility] in the past for pelvic organ prolapse - prescribe bed pads - pt does not want to try any medication - exercise pelvic floor muscle - she requests DME: wet wipes Assessment & Plan (11/16/2023 5:52 PM EDT): - seen by [facility] in the past for pelvic organ prolapse - prescribe bed pads - pt does not want to try any medication - exercise pelvic floor muscle Assessment & Plan (07/16/2023 9:38 AM EST): - seen by [facility] in the past for pelvic organ prolapse - prescribe bed pads - pt does not want to try any medication - exercise pelvic floor muscle Assessment & Plan (09/28/2022 11:31 AM EDT): - seen by [facility] in the past for pelvic organ prolapse [...] no spinal cord compression. - following with [facility] in [place] previously and was referred to neurosurgeon - seen by neurosurgeon, Dr. Ramsey, at [facility] in October 2021. Impression was that her [...] developed mild conduction abnormality - [facility], last seen in Feb 2023 - Low-normal EF on TTE - Continue current treatment plan per machine bobbin winder Assessment & Plan (05/25/2023 11:49 AM EST): - Hx Lyme disease, developed mild conduction abnormality - Following with [facility] provider, last seen in August 2022 - Low-normal EF on TTE - Continue current treatment plan per machine bobbin winder Assessment & Plan (01/15/2023 5:08 PM EDT): - Hx Lyme disease, developed mild conduction abnormality - Following with [facility] provider, last seen in August 2022 - Normal EF on TTE - Continue current treatment plan per machine bobbin winder Assessment & Plan (09/28/2022 11:23 AM EDT): - Hx Lyme disease, developed mild conduction abnormality - Following with [facility] provider - Continue current treatment plan per machine bobbin winder Chronic bilateral low back pain without sciatica [...] no spinal cord compression. - following with [facility] in [place] previously and was referred to neurosurgeon - seen by neurosurgeon, Dr. Ramsey, at [facility] in October 2021. Impression was that her [...] no spinal cord compression. - following with [facility] in [place] previously and was referred to neurosurgeon - seen by neurosurgeon, Dr. Ramsey, at [facility] in October 2021. Impression was that her [...] (04/05/2024 9:10 AM EDT): - S provider: [employer] - continue current medications as prescribed by the provider. Assessment & Plan (11/16/2023 5:52 PM EDT): - S provider: [employer] - continue current medications as prescribed by the provider. Assessment & Plan (05/25/2023 11:59 AM EST): - S provider: [employer] - continue current medications as prescribed by the provider. Prescribed oxybutynin. Abnormal finding on breast imaging 08/16/2019 Overview (09/10/2022): Stereotactic biopsy on 02/22/2019-benign findings, recommended annual screening mammogram Last Assessment & Plan: Underwent stereotactic bx about 1.5 years ago at [facility]. Scheduled for upcoming mammogram, reports some chronic [...] which is currently stable. Assessment & Plan (08/16/2024 8:52 AM EST): - moderate persistent - continue mometasone ICS 100 mcg bid - continue Montelukast - continue albuterol HFA prn Assessment & Plan (04/05/2024 9:09 AM EDT): [...] Encounters Date Type Department Care Team Description 08/16/2024 9:30 AM EST Office Visit [facility] [address] [place] [address] Gracy Reynolds MD Moderate persistent asthma without complication (Primary Dx); Other cardiomyopathy (CMS/HCC); Mixed stress and urge urinary incontinence; Chronic left shoulder pain; History of Lyme disease; Onychomycosis 08/16/2024 Travel 08/16/2024 Telephone [facility] [address] [place] [address] Gracy Reynolds MD 08/10/2024 Telephone [facility] [address] [place] [address] Gracy Reynolds MD chart prep 07/27/2024 Refill [facility] [address], [place] [address] Gracy Reynolds MD Onychomycosis 07/07/2024 Orders Only [facility] [address] [place] [address] Gracy Reynolds MD 07/04/2024 Telephone [facility] [address], [place] [address] Gracy Reynolds MD Nurse Triage 07/04/2024 Orders Only [facility] [address] [place] [address] Gracy Reynolds MD Chronic left shoulder pain (Primary Dx) 07/04/2024 Telephone [facility] [place] [address] Gracy Reynolds MD Call Back Request 06/30/2024 Refill [facility] [place] [address] Gracy Reynolds MD 06/30/2024 Telephone [facility] [place] [address] Gracy Reynolds MD image order 06/28/2024 Telephone [facility] [place] [address] Lisa Wright MA dme wipes 06/27/2024 Telephone [facility] [place] [address] Gracy Reynolds MD Durable Medical Equipment 06/27/2024 Telephone [facility] [place] [address] Gracy Reynolds MD dme tens pads; Nurse Triage 06/22/2024 [facility] [place] [address] Grcay Reynolds MD MRI SHOULDER ORDER 06/19/2024 3:30 PM EST Office Visit [facility] [place] [address] Gracy Reynolds MD Chronic left shoulder pain (Primary Dx); 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[facility]); Degenerative disc disease, cervical; Onychomycosis; Breast cancer screening by mammogram; History of Lyme disease; Hot flashes, menopausal; Other cardiomyopathy ([facility]); Vitamin D deficiency; Mixed stress and urge urinary incontinence; Overactive bladder 06/19/2024 Travel 06/16/[address] [address] Lisa Wright MA chart prep 06/12/[address] [address] Gracy Reynolds MD Med Refill 05/29/[address] [phone] Gracy Reynolds MD Durable Medical Equipment 05/29/[address] [address] Gracy Reynolds MD Results; Referral from Last 3 Months Immunizations Name Administration Dates Next Due Hep B, adult 08/16/2024 Influenza Injectable Quadriv alant Preservative Free IIV4 [...] 6.4 oz) 08/16/2024 10:54 AM EST Height 167.6 cm (5' 6 ) 04/05/2024 8:57 AM EDT Body Mass Index 27.99 04/05/2024 8:57 AM EDT Plan of Treatment Upcoming Encounters Date Type Department Care Team (Late st Contact Info) Description 09/18/2024 11:00 AM EDT Clinical Support [facility] [address] [place] [address] Health Maintenance Due Date Last Done Comments CT Colonography 1972 Colonoscopy 1972 Colorectal Cancer Screening 1972 FIT DNA/Cologuard 1972 FIT 1972 FOBT 1972 Sigmoidoscopy 1972 Family Planning (PISQ) 1987 Hepatitis B Vaccines (2 of 3 - 19+ 3-dose series) 09/13/2024 08/16/2024 SDOH Screening 11/15/2024 11/16/2023 Alcohol/Substance Use Screening 04/05/2025 04/05/2024 Depression Screening 08/16/2025 08/16/2024, 08/17/19 Tobacco Screening 08/16/2025 08/16/2024 Mammogram 06/30/2026 06/30/2024, 09, 10/15/2021, Additional history exists Cervical Cancer Screening 02/09/2028 HPV/Cotest 02/09/2028 02/08/2023, 04/14/2016 Pap Smear 02/09/2028 02/08/2023 DTaP/Tdap/Td Vaccines (3 - Td or Tdap) 09/06/2031 09/05/2021, 07/10/2011, 08/24/2008, Additional history exists RSV Patients and Patients Aged 60 years or older (1 - 1-dose 75+ series) 2047 Zoster Vaccines Completed 04/26/2023, 02/23/2023 HIV Screening Completed 11/16/2023 Hepatitis C Screening Completed 11/16/2023 Pneumococcal Vaccine: 50+ Years Completed 11/16/2023, 01/14/2010 COVID-19 Vaccine Completed 04/05/2024, , 05/22/2021, Additional history exists Influenza Vaccine Completed 04/05/2024, , 02/23/2023, Additional history exists HIB Vaccines Aged Out [...] Procedure Name Priority Date/Time Associated Diagnosis Comments LIPID PANEL WITH REFLEX TO DIRECT LDL Routine 07/14/2024 10:34 AM EST Other cardiomyopathy (CMS/HCC) TSH W/REFLEX TO FT4 Routine 07/14/2024 1 0:34 AM EST Hot flashes, menopausal CBC WITH AUTO DIFFERENTIAL Routine 07/14/2024 10:34 AM EST Hot flashes, menopausal VITAMIN D,25-OH,TOTAL,IA Routine 07/14/2024 10:34 AM EST Vitamin D deficiency HEPATIC FUNCTION PANEL Routine 07/14/2024 10:34 AM EST Onychomycosis BASIC METABOLIC PANEL Routine 07/14/2024 10:34 AM EST Other cardiomyopathy (CMS/HCC) MR SHOULDER WO CONTRAST LEFT Routine 07/01/2024 [...] Routine screening for STI (sexually transmitted infection) PAP/HPV Routine 02/08/2023 from Last 3 Months or Most Recently Relevant to Health Maintenance Results * (ABNORMAL) Vitamin D, 25-Hydroxy, Total, Immunoassay (07/14/2024 10:34 AM EST) Vitamin D 25-OH Total 29.7(L) >30 ng/mL [facility] Comment:Health Based Referen ce Values*< 20 ng/mL Mknecxuhn13-29 ng/mL Insufficient> 30 ng/mL Sufficient*Osiris BEE. N Engl J Med. 2007;357:266-280Care must be taken in interpreting Vitamin D results fromdifferent laboratories and methodologies. Published datademonstrated that results from patients undergoinghemodialysis may show a negative bias when tested withvarious automated 25-OH vitamin D assays when compared toLC-MS/MS.When testing samples from patients whose predominant form ofVitamin D is Vitamin D2, such as patients receiving VitaminD2 supplementation, results that are subtherapeutic shouldbe confirmed with another method such as LC-MS/MS. Blood Venous blood specimen / Unknown 07/14/2024 10:34 AM EST 07/14/2024 11:52 AM EST us Gracy Reynolds MD LAB BLOOD ORDERABLES Final Resul t Performing Organization Address City/[facility]/ZIP Co de Phone Number [facility] [address] [place] [address] [phone] * TSH with Reflex to Free T4 (07/14/2024 10:34 AM EST) TSH reflex Free T4 1.10 0.32 - 4.0 uIU/mL [facility] Blood 07/14/2024 10:3 4 AM EST 07/14/2024 11:52 AM EST us Gracy Reynolds MD LAB BLOOD ORDERABLES Final Resul t [facility] [address] [place] [address] [phone] * Lipid Panel with Reflex to Direct LDL (07/14/2024 10:34 AM EST) Triglycerides 42 <150 mg/dL [facility] Comment:Desirable Triglyceri de: less than 150 mg/dLBorderline High Triglyceride 150-199 mg/dLHigh Triglyceride: 200-499 mg/dLVery High Triglyceride: greater than or equal to 5OO mg/dL Cholesterol 143 <200 mg/dL [facility] Comment:Desirable Cholestero l: less than 200 mg/dLBorderline High Cholesterol: 200-239 mg/dLHigh Cholesterol: greater than 239 mg/dL LDL Cholesterol Calculated 77 <100 mg/dL [facility] Comment:Desirable LDL: less than 100 mg/dLNear Optimal/Above Optimal LDL: 110- 129 mg/dLBorderline High LDL: 130-159 mg/dLHigh LDL: 160-189 mg/dLVery High LDL: greater than or equal to 190 mg/dL HDL Cholesterol 58 >40 mg/dL [facility] Comment:Desirable HDL: great er than 40 mg/dL Note: This HDL assay may give artificially low results in patients with liver disease. Blood 07/14/2024 10:3 4 AM EST 07/14/2024 11:52 AM EST us Gracy Reynolds MD LAB BLOOD ORDERABLES Final Resul t [facility] [address] [place] [address] [phone] * (ABNORMAL) CBC auto differential (07/14/2024 10:34 AM EST) White Blood Count 4.9 4.8 - 10.8 X10*3/uL [facility] Red Blood Count 3.93(L) 4.20 - 5.50 X10*6/uL [facility] Hemoglobin 12.2 12.0 - 16.0 g/dl [facility] Hematocrit 36.1(L) 37.0 - 47.0 % [facility] Mean Corpuscular Volume 91.9 80.0 - 98.0 fL [facility] Mean Corpuscular Hemoglobin 31.0 27.0 - 33.0 pg [facility] Mean Corpuscular HGB Conc 33.8 31.0 - 35.0 g/dl [facility] Red Cell Distribution Width 10.9(L) 11.0 - 16.0 % [facility] Platelet Count 165 160 - 400 X10*3/uL [facility] Mean Platelet Volume 11.0 9.4 - 12.3 fL [facility] Neutrophils Percent Auto 62.9 45 - 73 % [facility] Imm Gran Pct Auto 0.4 0.0 - 0.4 % [facility] Lymphocytes Percent Auto 22.0 20 - 40 % [facility] Monocytes Percent Auto 9.4 2 - 11 % [facility] Eosinophils Percent Auto 4.5(H) 0 - 4 % [facility] Basophils Percent Auto 0.8 0 - 2 % [facility] NRBC Pct Auto 0.0 0.0 - 0.2 /100WBC [facility] Neutrophils Absolute Auto 3.1 2.0 - 8.3 x10*3/uL [facility] Imm Gran Abs Auto 0.02 0.00 - 0.03 X10*3/uL [facility] Lymphocytes Absolute Auto 1.1(L) 1.2 - 4.9 X10*3/uL [facility] Monocytes Absolute Auto 0.5 0.1 - 1.2 X10*3/uL [facility] Eosinophils Absolute Auto 0.2 0.0 - 0.4 X10*3/uL [facility] Basophils Absolute Auto 0.0 0.0 - 0.2 X10*3/uL [facility] NRBC Abs Auto 0.000 0.0 - 0.012 X10*3/uL [facility] Blood Venous blood specimen / Unknown 07/14/2024 10:34 AM EST 07/14/2024 11:52 AM EST us Gracy Sakurai MD LAB BLOOD ORDERABLES Final Resul t Performing Organization Address [facility]/ZIP Co de Phone Number [facility] [address] [place] [phone] * Hepatic Function Panel (07/14/2024 10:34 AM EST) Bilirubin, Total 0.6 0.0 - 1.0 mg/dL [facility] Bilirubin, Direct 0.2 0.0 - 0.5 mg/dL [facility] Aspartate Amino Transferase 21 5 - 31 U/L [facility] Alanine Aminotransferase 28 0 - 31 U/L [facility] Total Protein 7.6 6.5 - 8.0 g/dL [facility] Albumin Level 4.0 3.5 - 5.0 g/dL [facility] Alkaline Phosphatase 56 39 - 117 U/L [facility] Blood Venous blood specimen / Unknown 07/14/2024 10:34 AM EST 07/14/2024 11:52 AM EST Gracy Reynolds MD LAB BLOOD ORDERABLES Final Resul t Performing Organization Address [facility] Co de Phone Number [facility] [address] [place] [phone] * (ABNORMAL) Basic Metabolic Panel (07/14/2024 10:34 AM EST) Pathologist [facility] Sodium 142 135 - 145 mmol/L [facility] Potassium 3.8 3.3 - 5.1 mmol/L [facility] Chloride 106 96 - 108 mmol/L [facility] Carbon Dioxide 30(H) 22 - 29 mmol/L [facility] Anion Gap 10(L) 12 - 20 [facility] Urea Nitrogen (BUN) 22(H) 9 - 16 mg/dL [facility] Creatinine, Serum 0.61 0.5 - 1.4 mg/dL [facility] Estimated Glomerular Filt Rate >60 [facility] Comment:Chronic Kidney Disea se: Estimated GFR < 60 mL/min/1.04x7Ajimwt Kidney Disease: Estimated GFR < 15 mL/min/1.73m2 Glucose 89 60 - 115 mg/dL [facility] Calcium 9.2 8.4 - 10.2 mg/dL [facility] Blood Venous blood specimen / Unknown 07/14/2024 10:34 AM EST 07/14/2024 11:52 AM EST us Gracy Reynolds MD LAB BLOOD ORDERABLES Final Resul t [facility] [address] [place] [address] [phone] * MR Shoulder w/o Contrast Left (07/01/2024 8:46 AM EST) Anatomical Region Laterality Modality Upper Extremities, Shoulder Left Magn etic Resonance 07/01/2024 8:46 AM EST Narrative 07/01/2024 8:47 AM EST ? [facility] ?[address] ?[place] [address] ? Magnetic Resonance Report ? Signed ? Patient: Alexander,Iris ?MR#: [id number] ?? 83 ? : 1970 ?Acct:[id number] ? Age/Sex: 54 / F ?ADM Date: 06/30/24 ? Loc: HO.MRI ? Attending Dr: Gracy Reynolds MD ? Ordering Physician: Gracy Reynolds MD ?? Date of Service: 06/30/24 ?? Procedure(s): MR shoulder LT wo con ?? Accession Number(s): [id number] ? cc: Gracy Reynolds MD ? CLINICAL [...] signed by August Gao MD in OV> ?07/01/24846 ? DD/ 5 ? TD/TT: 07/01/24845 ? [place] Man: ? Procedure Note Donotuseinterpreter, Image - 07/01/[address] [address] Magnetic Resonance Report Signed Patient: Carrol Munoz#: [id number] 83 : 1970Acct:[id number] Age/Sex: 54 / FADM Date: 06/30/24 Loc: HO.MRI Attending Dr: Gracy Reynolds MD Ordering Physician: Gracy Reynolds MD Date of Service: 06/30/24 Procedure(s): MR shoulder LT wo con Accession Number(s): [id number] cc: Gracy Reynolds MD CLINICAL HISTORY: chroninc [...] signed by August Gao MD in OV> 07/01/24846 DD/ 5 TD/TT: 07/01/24845 [place] Man: Gracy Reynolds MD IMG MRI PROCEDURES Final Result * BI Mammogram Screening Tomosynthesis Bilateral (06/30/2024 7:45 AM EST) Anatomical Region Laterality Modality Breast Bilateral Mammography 06/30/2024 7:45 AM EST Narrative 07/09/2024 1:45 PM EST ? [facility] ?[address] ?[place] [address] ? Mammography Report ? Signed ? Patient: Alexander,Iris ?MR#: [id number] ?? 83 ? : 1970 ?Acct:[id number] ? Age/Sex: 54 / F ?ADM Date: 06/30/24 ? Loc: HO.MRI ? Attending Dr: Gracy Reynolds MD ? Ordering Physician: Gracy Reynolds MD ?Results: 2Benign F ?? indings ? Date of Service: 06/30/24 ?Follow Up: 1 Year From Orig ?? inal Mammogram ? Procedure(s): MM tomosynthesis screening BI ?? Accession Number(s): [id number] ? cc: Gracy Reynolds MD ? EXAMINATION: [...] DD/ 0745 ? TD/TT: 06/30/24 0800 ? [place] Man: ? Procedure Note Matenriquechanduwilder, Image - 07/09/[address] [address] Mammography Report Signed Patient: Carrol Munoz#: [id number] 83 : 1970Acct:[id number] Age/Sex: 54 / FADM Date: 06/30/24 Loc: HO.MRI Attending Dr: Gracy Reynolds MD Ordering Physician: Gracy Reynolds MDResults: 2Benign F indings Date of Service: 06/30/24Follow Up: 1 Year From Orig inal Mammogram Procedure(s): MM tomosynthesis screening BI Accession Number(s): [id number] cc: Gracy Reynolds MD EXAMINATION: MM SCREENING [...] by: Mag Camacho DO 07/09/2024 01:42 PM EST Dictated By: Mag Camacho DO Signed By: <Electronically signed by Mag Camacho DO in OV> 07/09/24 1342 DD/ 0745 TD/TT: 06/30/24 0800 [place] Man: Gracy Reynolds MD IMG BI PROCEDURES Edited Result - Final * Hepatitis C Antibody with Reflex to HCV, RNA, Quantitative, Real-Time PCR (11/16/2023 9:51 AM EDT) Hepatitis C Antibody Nonreactive Nonreactive [facility] Comment:Antibodies to HCV no t detected; does not exclude early acuteHCV infection. Blood Venous blood specimen / Unknown 11/16/2023 9:51 AM EDT 11/16/2023 11:48 AM EDT Gracy Reynolds MD LAB BLOOD ORDERABLES Final Resul t [facility] [address] [place] [phone] * HIV-1/2 Antigen and Antibodies, Fourth Generation, with Reflexes (11/16/2023 9:51 AM EDT) HIV AB/AG Nonreactive Nonreactive [facility] Comment:HIV-1 p24 Ag and/or HIV-1/HIV-2 Ab not detected.A test result that is nonreactive does not exclude thepossibility of exposure to or infection with HIV-1 and/orHIV-2. Nonreactive results in this assay for individualswith prior exposure to HIV-1 and/or HIV-2 may be due toantigen and antibody levels that are below the limit ofdetection of this assay.The Procam TVnity HIV Ag/Ab Combo assay result andsupplemental assay results should be interpreted inconjunction with the patient's clinical presentation,history and other laboratory results. If the results areinconsistent with clinical evidence, additional testing issuggested to confirm the result. Blood Venous blood specimen / Unknown 11/16/2023 9:51 AM EDT 11/16/2023 11:48 AM EDT Gracy Reynolds MD LAB BLOOD ORDERABLES Final Resul t [facility] [address] [place] [phone] * Pap Smear (02/08/2023) Pap Negative for intraephithelial lesion or malignancy Negative for intraephithelial lesion or malignancy, Other HPV Undetected Undetected, Indeterminate, Quantitative, Not Detected Historical Provider HEALTH MAINTENANCE Final Result from Last 3 Months or Most Recently Relevant to Health Maintenance Insurance [facility] Care Teams Background Investigator Relationship Specialty Start Date End Date Gracy Reynolds MD [address] [place] [address] PCP - General Family Medicine 01/27/22 Osmel Conn Heel WheelerTop Hat Body Maker 01/04/24
--- OUTSIDE RECORDS SUMMARY | 2024-08-18 12:02 | XMS_ITS | Encounter Summary ---
Author Organization [employer] Address [address] [facility] [address] 7t [place] [address] Care Team Providers Care Manager Sign Name Role Phone Gracy Reynolds MD Primary Care Provider [phone] Encounter Details Date Type Department Care Team ([facility] st Contact Info) Description 07/07/2024 Orders Only [facility] MEDICINE [address] [place], [place] [phone] Gracy Reynolds MD [address] [place], [place] [phone] Social History Tobacco Use Types Packs/Day Years [...] Description 09/18/2024 11:00 AM EDT Clinical Support [facility] MEDICINE [address] [place] [address] documented as of this encounter Visit Diagnoses Not on filedocumented in this encounter Additional Health Concerns Assessment Noted Time PHQ-9 Depression Total Score: 0 11/16/19 24 9:15 AM EDT documented as of this encounter Care Teams Manager Sign Relationship Specialty Start Date End Date Gracy Reynolds MD 230 [place] [address] PCP - General Family Medicine 01/27/22 Osmel Conn Caustic MixerProcess Improvement Engineer 01/04/24 documented as of this encounter
--- OUTSIDE RECORDS SUMMARY | 2024-08-18 12:02 | XMS_ITS | Encounter Summary ---
Author Organization [facility] Address [address] [facility] 7t [place] [address] Care Team Providers Care Chief Operator Reformer Name Role Phone Gracy Reynolds MD Primary Care Provider [phone] Reason for Visit * Reason Onset Date Comments call return 09/16/2022 Encounter Details Date Type Department Care Team ([facility] st Contact Info) Description 09/16/2022 Telephone [facility] MEDICINE [address] [place], [place] [phone] Gracy Reynolds MD 230 [place] [address] call return Social History Tobacco Use Types [...] call from the clinic was made but technical document writer does not see any task of call. Please contact pt at [phone] documented in this encounter Plan of Treatment Upcoming Encounters Date Type Department Care Team ([facility] st Contact Info) Description 09/18/2024 11:00 AM EDT Clinical Support [facility] MEDICINE [address] [place] [address] documented as of this encounter Visit Diagnoses Not on filedocumented in this encounter Additional Health Concerns Assessment Noted Time PHQ-9 Depression Total Score: 17 023 3:11 PM EDT documented as of this encounter Care Teams Chief Operator Reformer Relationship Specialty Start Date End Date Gracy Reynolds MD 230 [place] [address] PCP - General Family Medicine 01/27/[address] MagistrateAuto Appraiser 01/04/24 documented as of this encounter
--- OUTSIDE RECORDS SUMMARY | 2024-08-18 12:02 | XMS_ITS | Encounter Summary ---
Author Organization [employer] Address [address] [facility] 7t [place] [address] Care Team Providers Care Online Advertising Manager Name Role Phone Gracy Reynolds MD Primary Care Provider [phone] Reason for Referral * Consultation (Routine) - Closed Specialty Diagnoses / Procedures Referred By Rogelio rogers Referred To Contact Orthopaedic Surgery Diagnoses Chronic left shoulder pain Gracy Reynolds MD 230 [place] [address] Phone: tel: fax: [facility] Orthopedics [address] [place] [address] Phone: tel: Referral ID Status Reason Start Date Expiration Date V isits Requested Visits Authorized [id number] Closed Specialty Services Required 07/04/2024 07/04/2025 1 1 Encounter Details Date Type Department Care Team (Late st Contact Info) Description 07/04/2024 Orders Only [facility] MEDICINE [address] [place] [address] Gracy Reynolds MD [address] [place], [place] [phone] Chronic left shoulder pain (Primary Dx) Social [...] Description 09/18/2024 11:00 AM EDT Clinical Support [facility] MEDICINE 230 [place] [address] Scheduled Referrals Name Type Priority Associated Diagnoses [...] documented as of this encounter Care Teams Online Advertising Manager Relationship Specialty Start Date End Date Gracy Reynolds MD [address] [place] [address] PCP - General Family Medicine 01/27/22 Osmel Conn Shredding Floor Equipment OperatorSql Developer Dba 01/04/24 documented as of this encounter
--- OUTSIDE RECORDS SUMMARY | 2024-08-18 12:02 | XMS_ITS | Encounter Summary ---
Author Organization [employer] Address [address] [address] 7t [place] [address] Care Team Providers Care Product Operations Associate Name Role Phone Gracy Reynolds MD Primary Care Provider [phone] Encounter Details Date Type Department Care Team (Latest Contact Info) Description 08/16/2024 Travel Social History Tobacco Use Types Packs/Day [...] Description 09/18/2024 11:00 AM EDT Clinical Support [facility] MEDICINE 230 [place] [address] documented as of this encounter Visit Diagnoses Not on filedocumented in this encounter Additional Health Concerns Assessment Noted Time PHQ-9 Depression Total Score: 7 08/17/19 25 11:33 AM EST documented as of this encounter Care Teams Product Operations Associate Relationship Specialty Start Date End Date Gracy Reynolds MD 230 [place] [address] PCP - General Family Medicine 01/27/22 Osmel Conn Securities Compliance ExaminerCareer Development Specialist 01/04/24 documented as of this encounter
--- OUTSIDE RECORDS SUMMARY | 2024-08-18 12:02 | XMS_ITS | Clinical Summary ---
Author Organization [facility] Address [address] [place] [address] Care Team Providers Care Die Maker Trim Name Role Phone Unavailable Primary Care Provider [...] 08/24/2008 Imm-Zoster, Recombinant (1 of 2) 2022 [id number] ( season) 2024 021, 09/25/2020 Imm-Influenza (#1) 2024 05/03/2020, 0 03/09/2019, 05/04/2013, Additional history exists Alcohol and Drug Screen 06/14/2024 Depression Annual Screen 06/14/2024 Cervical Ablation/Cold-Knife Conization Discontinued Cervical Cryotherapy Discontinued Colposcopy Discontinued Endometrial Biopsy Discontinued Excision/Leep Discontinued HPV Genotyping Discontinued Vaginal Pap Discontinued Vulvoscopy Discontinued [place]
--- OUTSIDE RECORDS SUMMARY | 2024-08-18 12:02 | XMS_ITS | Encounter Summary ---
Author Organization [employer] Address [address] [facility] 7t [place] [address] Care Team Providers Care Roofing Contractor Name Role Phone Gracy Reynolds MD Primary Care Provider [phone] Reason for Visit * Reason Comments Med Refill Encounter Details Date Type Department Care Team ([facility] st Contact Info) Description 07/27/2024 Refill [facility] MEDICINE 230 [place], [place] [phone] Gracy Reynolds MD 230 [place], [place] [phone] Onychomycosis Social History Tobacco Use Types Packs/Day [...] Description 09/18/2024 11:00 AM EDT Clinical Support [facility] MEDICINE [address] [place] [phone] documented as of this encounter Visit Diagnoses Diagnosis Onychomycosis Dermatophytosis of nail documented in this encounter Additional Health Concerns Assessment Noted Time PHQ-9 Depression Total Score: 0 11/16/19 24 9:15 AM EDT documented as of this encounter Care Teams Roofing Contractor Relationship Specialty Start Date End Date Gracy Reynolds MD 230 [place] [address] PCP - General Family Medicine 01/27/22 Osmel Conn Architect ManagerBroom Handle Dipper 01/04/24 documented as of this encounter
--- OUTSIDE RECORDS SUMMARY | 2024-08-18 12:02 | XMS_ITS | Encounter Summary ---
Author Organization [employer] [facility] Address [address] [facility] 7t [place] [address] Care Team Providers Care Calker Name Role Phone Gracy Reynolds MD Primary Care Provider Encounter Details Date Type Department Care Team (Late st Contact Info) Description 10/16/2022 Orders Only [facility] MED[facility]INE [address] [place] [address] [phone] Gracy Reynolds MD [address] [place] [address] [phone] Mixed stress and urge urinary incontinence (Primary [...] Department Care Team (Late Contact Info) Description 09/18/2024 11:00 AM EDT Clinical Support [facility] [address] [place] [phone] documented as of this encounter Visit Diagnoses Diagnosis Mixed stress and urge urinary incontinence- Primary Mixed incontinence urge and stress (male)(female) documented in this encounter Additional Health Concerns Assessment Noted Time PHQ-9 Depression Total Score: 17 09/15/ 023 3:11 PM EDT documented as of this encounter Care Teams Calker Relationship Specialty Start Date End Date Gracy Reynolds MD 230 [place] [address] PCP - General Family Medicine 01/27/22 Osmel Conn Spiral Machine OperatorTelegraphic Typewriter Mechanic 01/04/24 documented as of this encounter
--- OUTSIDE RECORDS SUMMARY | 2024-08-18 12:02 | XMS_ITS | Encounter Summary ---
Author Organization [facility] Address [address] [facility] 7t [place] [address] Care Team Providers Care Gas Engine Repairer Name Role Phone Gracy Reynolds MD Primary Care Provider [phone] Encounter Details Date Type Department Care Team (Late st Contact Info) Description 12/03/2022 Orders Only [facility] MEDICINE [address] [place] [phone] Jana Hooks LPN Social History Tobacco Use [...] 11:00 AM EDT Clinical Support [facility] MEDICINE [address] [place] [address] [phone] documented as of this encounter Visit Diagnoses Not on filedocumented in this encounter Additional Health Concerns Assessment Noted Time PHQ-9 Depression Total Score: 17 023 3:11 PM EDT documented as of this encounter Care Teams Gas Engine Repairer Relationship Specialty Start Date End Date Gracy Reynolds MD 230 [place] [address] PCP - General Family Medicine 01/27/22 Osmel Conn Agency Sales RepresentativeWarp Hand 01/04/24 documented as of this encounter
--- OUTSIDE RECORDS SUMMARY | 2024-08-18 12:02 | XMS_ITS | Encounter Summary ---
Author Organization [email or web address] Address [address] [facility] 7t [place] [address] Care Team Providers Care Director Of Individual Giving Name Role Phone Gracy Reynolds MD Primary Care Provider [phone] Reason for Visit * Reason Onset Date Comments chart prep 08/10/2024 Encounter Details Date Type Department Care Team ([facility] Contact Info) Description 08/10/[address] [facility] MEDICINE 230 [place], [place] [phone] Gracy Reynolds MD 230 [place] [address] chart prep Social History Tobacco Use Types [...] Telephone Encounter - Lisa Wright [place] - 08/10/2024 1:26 PM EST ..chart Prep Labs: not applicable Images: not applicable Vaccines due: Hep B Due Referrals: Orthopedics Pending appointment on 08/18/24 Screenings: Not Applicable Overdue care gaps: rubin-7 documented in this encounter Plan of Treatment Upcoming Encounters Date Type Department Care Team (Late st Contact Info) Description 09/18/2024 11:00 AM EDT Clinical Support [facility] MEDICINE [address] [place] [address] documented as of this encounter Visit Diagnoses Not on filedocumented in this encounter Additional Health Concerns Assessment Noted Time PHQ-9 Depression Total Score: 0 11/16/19 24 9:15 AM EDT documented as of this encounter Care Teams Director Of Individual Giving Relationship Specialty Start Date End Date Gracy Reynolds MD 230 [place] [address] PCP - General Family Medicine 01/27/22 Osmel Conn Stamp ClerkHealthcare Market Consultant 01/04/24 documented as of this encounter
--- OUTSIDE RECORDS SUMMARY | 2024-08-18 12:02 | XMS_ITS | Encounter Summary ---
Author Organization [employer] Address [address] [facility] [address] [facility] [address] 7t [place] [address] Care Team Providers Care Device Engineer Name Role Phone Gracy Reynolds MD Primary Care Provider [phone] Encounter Details Date Type Department Care Team ([facility] st Contact Info) Description 11/16/2023 Orders Only [facility] MEDICINE [address] [place], [place] [phone] Gracy Reynolds MD 230 [place], [place] [phone] Social History Tobacco Use Types Packs/Day Years [...] Description 09/18/2024 11:00 AM EDT Clinical Support [facility] MEDICINE [address] [place] [address] documented as of this encounter Visit Diagnoses Not on filedocumented in this encounter Additional Health Concerns Assessment Noted Time PHQ-9 Depression Total Score: 0 11/16/19 24 9:15 AM EDT documented as of this encounter Care Teams Device Engineer Relationship Specialty Start Date End Date Gracy Reynolds MD [address] [place] [address] PCP - General Family Medicine 01/27/22 Osmel Conn Telephone Station InstallerSwimming Pool Attendant 01/04/24 documented as of this encounter
--- OUTSIDE RECORDS SUMMARY | 2024-08-18 12:03 | XMS_ITS | Encounter Summary ---
Author Organization [employer] [facility] Address [address] [facility] 7t [place] [address] Care Team Providers Care Guide Domestic Tour Name Role Phone Gracy Reynolds MD Primary Care Provider [phone] Encounter Details Date Type Department Care Team (Late Contact Info) Description 03/12/2023 Orders Only [facility] MEDICINE [address] [place] [address] [phone] Gracy Reynolds MD [address] [place] [address] [phone] Social History Tobacco Use Types Packs/Day Years [...] Description 09/18/2024 11:00 AM EDT Clinical Support [facility] MEDICINE [address] [place] [address] [phone] documented as of this encounter Visit Diagnoses Not on filedocumented in this encounter Additional Health Concerns Assessment Noted Time PHQ-9 Depression Total Score: 17 04/2 023 3:11 PM EDT documented as of this encounter Care Teams Guide Domestic Tour Relationship Specialty Start Date End Date Gracy Reynolds MD 230 [place] [address] PCP - General Family Medicine 01/27/22 Osmel Conn Linux Devops EngineerManager Of Construction 01/04/24 documented as of this encounter
== END 2024-08-18 11:58 | disposition home or self-care (01) ==
PROVIDERS: PCP Family Medicine; Visit Provider Physician Assistant
DX: M75.02 Adhesive capsulitis of left shoulder (principal)
CPT/HCPCS: 99203; G2211

== ENCOUNTER → 2024-08-18 10:39 | Outpatient (BNVA) | payer OTHER, SELFPAY | PROVIDERS: PCP Family Medicine; Visit Provider Physician Assistant | DX: M75.02 Adhesive capsulitis of left shoulder (principal); M79.7 Fibromyalgia | CPT/HCPCS: 99202 ==

== ENCOUNTER 2024-09-15 10:00 | Outpatient (RCR) | payer OTHER, SELFPAY ==
--- NOTE | 2024-09-06 12:22 | MHC.PT.EP ---
[facility] [place] Office [place] Office [place] Office [address] Mcghee [address] [phone] F: [phone] F: [phone] F: [phone] F: [phone] Physical Therapy Plan of Care Date of Evaluation: 09/06/24 Date of Surgery: NA Diagnosis: ADHESIVE CAPSULITIS L SHOULDER Assessment: Pt IS 54 YO RHD F REFERRED TO PT FROM ORTHO ([facility]) WITH L FROZEN SHLDER. Pt REPORTS INSIDIOUS ONSET X 2-3 MONTHS AGO, BUT REPORTS TENDONITIS IN PAST. PRESENTS WITH LIMITED L SHLDER ROM AND STRENGTH WITH PAIN ALL AFFECTING ADLS. SHOULD BENEFIT FROM PT TO ADDRESS THESE ISSUES OF NOTE, Pt REPORTS NECK ISSUES AND BACK ISSUES Frequency and Duration: The patient will be seen 2X/WK X 6 WKS Short Term Goals: 1. INCREASED POSTURE AWARENESS AND AWARENESS SHLDER CARE 2. IMPROVED SLEEP 3. IMPROVED ABIITY TO FIX HAIR AND ANGEL/DOFF JACKET/SHIRT Motorcycle Designer Goals: 1. I HEP WITH DC EX PLAN 2. INCREASED L SHLDER ROM AT LEAST 20 DEGREES T/O 3. DECREASED L SHLDER PAIN AT LEAST 50% WITH ADLS Treatment Plan: Modalities to reduce pain, spasms and effusion. Manual therapy to restore motion and function. Therapeutic exercise to improve strength and flexibility. Neuromuscular re-education for posture and balance. Therapeutic activities to return to functional activities of daily living. Electronically signed by: JOSEPH DUMONT PT Please sign and return to therapist. Thank you for your referral.
--- NOTE | 2024-09-15 15:51 | MHC.PT.DC ---
[facility] [place] [facility] [place] Office [place] Office [address] Barbara Mcghee [address] [phone] F: [phone] F: [phone] F: [phone] F: [phone] Physical Therapy Discharge Report Diagnosis: ADHESIVE CAPSUITIS L SHOULDER Date of Surgery: NA Date of Evaluation: 09/06/24 Date of Discharge: 09/15/24 Treatments to Date: 4 Cancellations to Date: No Shows to Date: Discharge Status: Independent with HEP Patient Elected to Stop Recommend MD Follow-up Discharge Summary: Pt SEEN FOR INIT EVAL AND 3 FU VISITS. AT LAST APPT ON 09/15/24 ASSESSMENT BY HAMLET ROY ASSIGNER 'Attempted to put MH to L UT But Pt unable to get into comfortable pos so Pt session ended and Pt went to motel front desk attendant to Cx visit . Pt then Cx all her visits reporting she is going away for awhile and will be D/C', Electronically signed by: JOSEPH DUMONT PT Please sign and return to therapist. Thank you for your referral.
== END 2024-09-15 15:51 | disposition home or self-care (01) ==
LOC: HO.PT 10:00
PROVIDERS: PCP Family Medicine; Visit Provider Physician Assistant
DX: M75.02 Adhesive capsulitis of left shoulder (principal)
CPT/HCPCS: 97110; 97140; 97162; 97535

== ENCOUNTER 2024-11-22 12:13 | Outpatient (AMB) | payer OTHER, SELFPAY ==
[2024-11-22 12:53] VITALS: BMI 27.9
--- NOTE | 2024-11-22 12:53 | A.OFFVIS_ITS ---
Vital Signs 11/22/24 12:53 Height 5 ft 6 in Weight 173 lb BMI 27.9 Intake Visit Reasons: OV-f/u left shldr adhesive cap s/p therapy Intake Note: Alison is a 54 year old right hand dominant female who presents for a follow up of adhesive capsulitis of left shoulder. At patient last visit she was referred to physical therapy and follow up in office in 3 months. Patient reports that she attended about 2 weeks and continue to do at home exercises. She has improvement in her ROM. Still have discomfort at night with sleeping. discomfort in her left lower back, intense pain that is tender. tightness with raising her arms up. Allergies shellfish derived Allergy (Unknown, Verified 08/18/24 10:55) SWELLING AND HIVES shrimp Allergy (Unknown, Verified 08/18/24 10:55) ITCHING/SWELLING seafood Allergy (Unknown, Uncoded 08/18/24 10:55) Unknown Medication List - Last Reconciled 11/22/24 by Malika Cornejo PA-C albuterol sulfate 90 mcg/actuation (ProAir HFA) 1 inh inhalation QID albuterol sulfate mg inhalation benzoyl peroxide 10% 1 appl topical DAILY cetirizine (Zyrtec) 10 mg PO DAILY PRN cholecalciferol (vitamin D3) 50 mcg PO DAILY cholecalciferol (vitamin D3) 25 mcg PO QAM clindamycin phosphate 1% 1 appl topical DAILY diclofenac sodium 1% 2 grams topical QID duloxetine (Cymbalta) 60 mg PO DAILY fluticasone propionate 110 mcg/actuation 1 puff inhalation BID ibuprofen 800 mg PO Q8H PRN 30 days lidocaine 3.75% 1 appl topical BID lidocaine 5% (Lidoderm) 1 patch topical DAILY metronidazole mg PO montelukast (Singulair) 10 mg PO DAILY HPI HPI OV-f/u left shldr adhesive cap s/p therapy: Details: 54-year-old female returns to the office today for a follow-up left shoulder. She was seen by me 3 months ago for left shoulder adhesive capsulitis and was referred to physical therapy. She states she did approximately 2 weeks with physical therapy and then worked on a home exercise program. She states her range of motion has significantly improved however she feels that she has some tightness with certain positions like reaching overhead and behind the body. [facility] Medical History (Updated 08/18/24 @ 11:17 by Malika Cornejo PA-C) Fibromyalgia Chronic arthralgias of knees and hips H/o Lyme disease Depression Asthma Anemia Surgical History (Updated 08/18/24 @ 10:59 by YESICA Sherwood) Hx of tubal ligation No history of previous surgery Social History (Updated 08/18/24 @ 10:59 by YESICA Sherwood) Patient Tobacco Use Status: Never used Tobacco Current occupational status: disabled Current occupation: right hand dominant Review of Systems Const All systems reviewed & are unremarkable except as noted in HPI and below Physical Exam Vital Signs: BMI result Body Mass Index 27.9 Extrem Other: Left shoulder normal to inspection. No tenderness to palpation. She has close to full range of motion in all planes with some rotator cuff weakness and external rotation. Assessment & Plan Assessment & Plan (1) Adhesive capsulitis of left shoulder: Code(s): M75.02 - Adhesive capsulitis of left shoulder Category: Medical Plan: While she has improved greatly since her last appointment I feel as though she has some residual weakness which would benefit from physical therapy. I did place an order for physical therapy to work on some strengthening exercises. She should also maintain her range of motion. If symptoms persist or worsen or there is any concerns she can contact our office otherwise follow up as needed. Orders: Orders PT Evaluation and Treatment Today M75.02 - Adhesive capsulitis of left shoulder Coding Level of Care Code Est Pt Level 3 (81308) Complex EM visit Add On G2211 Diagnoses Adhesive capsulitis of left shoulder M75.02
--- OUTSIDE RECORDS SUMMARY | 2024-11-22 13:48 | XMS_ITS | Encounter Summary ---
Author Organization [employer] Address [address] [facility] 7t [place] [address] Care Team Providers Care Certified Income Tax Preparer Name Role Phone Gracy Reynolds MD Primary Care Provider [phone] Reason for Visit * Reason Comments Med Refill Encounter Details Date Type Department Care Team ([facility] st Contact Info) Description 10/01/2024 Refill [facility] [address] [place], [place] [phone] Gracy Reynolds MD 230 [place], [place] [phone] Social History Tobacco Use Types Packs/Day Years [...] documented as of this encounter Care Teams Certified Income Tax Preparer Relationship Specialty Start Date End Date Gracy Reynolds MD [address] [place] [address] PCP - General Family Medicine 01/27/22 Osmel Conn TeletypistBrand Recorder 01/04/24 documented as of this encounter
== END 2024-11-22 15:33 | disposition home or self-care (01) ==
LOC: HO.HOS 12:13
PROVIDERS: PCP Family Medicine; Visit Provider Physician Assistant
DX: M75.02 Adhesive capsulitis of left shoulder (principal)
CPT/HCPCS: 99213; G2211

== ENCOUNTER → 2024-11-22 12:13 | Outpatient (BNVA) | payer OTHER, SELFPAY | PROVIDERS: PCP Family Medicine; Visit Provider Physician Assistant | DX: M75.02 Adhesive capsulitis of left shoulder (principal) | CPT/HCPCS: 99212 ==

== ENCOUNTER 2024-12-11 13:31 | Outpatient (AMB) | payer OTHER, SELFPAY ==
--- NOTE | 2024-12-11 13:53 | MHC.OFFVIS ---
Vital Signs 12/11/24 13:56 Height 5 ft 6 in Weight 172 lb BMI 27.8 BP 111/67 Blood Pressure Location Lt brachial Position Sitting Pulse 72 Intake Visit Reasons: POS Cologuard Intake Note: Alison presents in the office as a new patient for a POS Cologuard - states she has no concerns and this was a surprise to her. She has a lower back pain and she is not sure if this could be related. Little bloating every now and again. Wildlife Conservation Professor Required: No Allergies shellfish derived Allergy (Unknown, Verified 12/11/24 13:57) SWELLING AND HIVES shrimp Allergy (Unknown, Verified 12/11/24 13:57) ITCHING/SWELLING seafood Allergy (Unknown, Uncoded 12/11/24 13:57) Unknown HPI Comments Details: This is a 54-year-old female with no significant past medical history who has been referred to our office for positive Cologuard. Patient herself reports no abdominal pain, diarrhea, rectal bleeding. No family history of colorectal cancer. She was surprised to see the results turned positive. Based on referral provided, cologuard was POSITIVE on 08/25/2024. [facility] Medical History Fibromyalgia Chronic arthralgias of knees and hips H/o Lyme disease Depression Asthma Anemia Surgical History Hx of tubal ligation No history of previous surgery Family History (Updated 12/11/24 @ 13:58 by YESICA Solis) Maternal Aunt Cancer Maternal Uncle Esophageal cancer Father Asthma Heart attack Social History Patient Tobacco Use Status: Never used Tobacco Use of substances other than those prescribed or required for medical reasons: No Are you DNR?: No Advance Directives: No Advance Directives Information Provided: Yes Current occupational status: disabled Current occupation: right hand dominant Review of Systems Const All systems reviewed & are unremarkable except as noted in HPI and below Physical Exam Vital Signs: Last Vital Signs Pulse 72 12/11/24 13:56 BP 111/67 12/11/24 13:56 BMI result Body Mass Index 27.8 No apparent distress Nonicteric Abdomen soft, nondistended Alert and oriented x3, normal gait Assessment & Plan Assessment & Plan (1) Positive colorectal cancer screening using Cologuard test: Code(s): R19.5 - Other fecal abnormalities Category: Medical Plan Patient with positive Cologuard in August 2024. Reviewed that could be either the 3 possibilities, false positive, detection of blood from hemorrhoid/rectal ulcer/proctitis, or large polyp or early tumor. She will need a diagnostic colonoscopy within 3-6 months of this Cologuard. This will be set up. MiraLax Gatorade prep prescribed as per patient preference. Instructions reviewed with the patient and handout provided as well. Follow-up after colonoscopy. Medications: New polyethylene glycol 3350 (Miralax) mix in 64 oz gatorade for colonoscopy prep 238 grams PO ONCE 238 grams 0RF bisacodyl (Dulcolax (bisacodyl)) start two days before colonoscopy 10 mg (2 x 5 mg) PO BID 8 tabs 0RF 2 days Coding Level of Care Code New Pt Level 4 (74703) Diagnoses Positive colorectal cancer screening using Cologuard test R19.5
[2024-12-11 13:56] VITALS: BP 111/67; PULSE 72; BMI 27.8
--- OUTSIDE RECORDS SUMMARY | 2024-12-11 14:00 | XMS_ITS | Clinical Summary ---
Author Organization [facility] Address [address] [place] [address] Care Team Providers Care General Neurologist Name Role Phone Unavailable Primary Care Provider Unavailabl e Source Comments PLEASE NOTE, if this patient is a minor, it may be UNLAWFUL to discuss sensitive information that is contained in these records (such as FAMILY PLANNING, MENTAL HEALTH or SUBSTANCE ABUSE) with the minor patient's parent or other person without the patient's specific authorization.[facility] Immunizations Immunization Administration Dates Next Due Moderna COVID-19 Vaccine, [...] Health Maintenance Due Date Last Done Comments Anxiety Screening 1972 Diabetes Screening 1972 HPV Screening 1972 Hepatitis [...] - Td or Tdap) 07/10/2021 012, 08/24/2008 Imm-Pneumococcal 50+ (2 of 2 - PCV) 2022 01/14/2010 Imm-Zoster, Recombinant (1 of 2) 2022 Wei-[id number] ( season) 2024 021, 09/25/2020 Alcohol and Drug Screen 06/14/2024 Depression Annual Screen 06/14/2024 Imm-Influenza (Season Ended) 2025, 03/09/2019, 05/04/2013, Additional history exists Cervical Ablation/Cold-Knife Conization Discontinued Cervical Cryotherapy Discontinued Colposcopy Discontinued Endometrial Biopsy Discontinued Excision/Leep Discontinued HPV Genotyping Discontinued Vaginal Pap Discontinued Vulvoscopy Discontinued [place]
--- OUTSIDE RECORDS SUMMARY | 2024-12-11 14:00 | XMS_ITS | Encounter Summary ---
Author Organization [employer] Address [address] [facility] 7[address] [place] [address] Care Team Providers Care Jewelry Enameler Name Role Phone Gracy Reynolds MD Primary Care Provider [phone] Reason for Visit * Reason Comments Med Refill Encounter Details Date Type Department Care Team ([facility] st Contact Info) Description 10/01/2024 Refill [facility] [address] [place], [place] [phone] Gracy Reynolds MD [address] [place], [place] [phone] Social History Tobacco Use Types Packs/Day Years [...] documented as of this encounter Care Teams Jewelry Enameler Relationship Specialty Start Date End Date Gracy Reynolds MD [address] [place] [id number] PCP - General Family Medicine 01/27/22 Osmel Conn Ferryboat HelperBridge Instructor 01/04/24 documented as of this encounter
== END 2024-12-11 15:01 | disposition home or self-care (01) ==
LOC: HO.HGI 13:31
PROVIDERS: PCP Family Medicine; Visit Provider Internal Medicine
DX: R19.5 Other fecal abnormalities (principal)
CPT/HCPCS: 99204

== ENCOUNTER → 2024-12-11 13:31 | Outpatient (BNVA) | payer OTHER, SELFPAY | PROVIDERS: PCP Family Medicine; Visit Provider Internal Medicine | DX: R19.5 Other fecal abnormalities (principal); M54.50 Low back pain, unspecified; R14.0 Abdominal distension (gaseous); M79.7 Fibromyalgia; F32.A Depression, unspecified; J45.909 Unspecified asthma, uncomplicated; D64.9 Anemia, unspecified | CPT/HCPCS: 99202 ==

== ENCOUNTER 2025-01-30 07:16 | Day surgery (SDC) | payer OTHER, SELFPAY ==
[2025-01-26 10:42] VITALS: BMI 27.8
[2025-01-30 08:14] VITALS: BP 121/65; PULSE 62; RESP 16; TEMP 36.8; O2SAT 96
[2025-01-30] MEDS: Lactated Ringers 1,000 ML 100 ML IVCONT (08:26)
--- NOTE | 2025-01-30 08:38 | MHC.SHP ---
Pre-Procedural Eval Section A - 24 Hr Update-Section A only Date of Service: 01/30/25 Section B - Complete if H&P > 30 days Chief Complaint: positive cologuard Details of Present Illness: Fibromyalgia Chronic arthralgias of knees and hips H/o Lyme disease Depression Asthma Anemia Surgical History Hx of tubal ligation No history of previous surgery Present Medications: see Short Stay Collaborative assessment Allergies: Allergies Allergy/AdvReac Type Severity Reaction Status Date / Time shellfish derived Allergy Unknown SWELLING Verified 12/11/24 13:57 AND HIVES shrimp Allergy Unknown ITCHING/SWE Verified 12/11/24 13:57 LLING seafood Allergy Unknown Unknown Uncoded 12/11/24 13:57 Review of Systems Review of Systems Comment: Ten point ROS negative Exam Exam Comment: Gen appear: No acute distress HEENT: no icterus Chest: No overt resp distress Abd: soft, nontender, nondistended Psych: Stable affect, answering questions appropriately Neuro: A/Ox3 noted to move all extremities spontaneously Ext: no peripheral edema Plan Diagnosis/Plan: Unchanged I have reviewed the history and physical and performed a pertinent physical examination on my patient. No changes have occurred unless specified. Time Spent With Patient Time: Total time managing care of this patient today ____ minutes.
--- NOTE | 2025-01-30 09:34 | HO.ANESPROP2 ---
[facility] Active Problems Active Problems: All Active Problems (Updated 01/30/25 @ 08:42 by Ivelisse Jean MD) Positive colorectal cancer screening using Cologuard test (Acute) Adhesive capsulitis of left shoulder (Acute) Cervical osteoarthritis (Acute) Fibromyalgia (Acute) H/o Lyme disease (Acute) Chronic arthralgias of knees and hips (Acute) Depression (Acute) Asthma (Acute) Anemia (Acute) Past Medical History Medical History Fibromyalgia Chronic arthralgias of knees and hips H/o Lyme disease Depression Asthma Anemia Functional capacity: independent ambulation Patient : No Family History Family History Maternal Aunt Cancer Maternal Uncle Esophageal cancer Father Asthma Heart attack Surgical History Surgical History Hx of tubal ligation No history of previous surgery History of Problems with Anesthesia: No Social History Social History Patient Tobacco Use Status: Never used Tobacco Use of substances other than those prescribed or required for medical reasons: No Are you DNR?: No Advance Directives: No Advance Directives Information Provided: Yes Current occupational status: disabled Current occupation: right hand dominant Meds Allergies Allergy/AdvReac Type Severity Reaction Status Date / Time shellfish derived Allergy Unknown SWELLING Verified 12/11/24 13:57 AND HIVES shrimp Allergy Unknown ITCHING/SWE Verified 12/11/24 13:57 LLING seafood Allergy Unknown Unknown Uncoded 12/11/24 13:57 Active Medications: Current Medications Lactated Ringer's (Lr) 1,000 mls @ 100 mls/hr IVCONT .Q10H KINA Last Admin: 01/30/25 08:26 Dose: 100 mls/hr Home Medications ?Medication ?Instructions ?Recorded ?Confirmed ?Last Taken ?Type albuterol sulfate 90 mcg/actuation 1 inh inhalation QID 03/30/22 11/22/24 Unknown History aerosol inhaler (ProAir HFA) benzoyl peroxide 10 % topical 1 appl topical DAILY 03/30/22 11/22/24 Unknown History cleanser cetirizine 10 mg capsule (Zyrtec) 10 mg PO DAILY PRN 03/30/22 11/22/24 Unknown History duloxetine 60 mg capsule,delayed 60 mg PO DAILY 03/30/22 11/22/24 Unknown History release (Cymbalta) fluticasone propionate 110 1 puff inhalation BID 03/30/22 11/22/24 Unknown History mcg/actuation HFA aerosol inhaler lidocaine 3.75 % topical cream 1 appl topical BID 03/30/22 11/22/24 Unknown History montelukast 10 mg tablet 10 mg PO DAILY 03/30/22 11/22/24 Unknown History (Singulair) lidocaine 5 % topical patch 1 patch topical DAILY 01/07/23 11/22/24 Unknown History (Lidoderm) albuterol sulfate 2.5 mg/3 mL mg inhalation 08/18/24 11/22/24 Unknown History (0.083 %) solution for nebulization cholecalciferol (vitamin D3) 25 25 mcg PO QAM 08/18/24 11/22/24 Unknown History mcg (1,000 unit) tablet meloxicam 7.5 mg tablet 7.5 mg PO PRN moderate pain 12/11/24 Unknown History Exam Height,Weight and Vital Signs: Height 5 ft 6 in Weight 78.018 kg Last Vital Signs Temp 98.3 F 01/30/25 08:14 Pulse 62 01/30/25 08:14 Resp 16 01/30/25 08:14 BP 121/65 01/30/25 08:14 Pulse Ox 96 01/30/25 08:14 O2 Del Method Room Air 01/30/25 08:14 Airway Mallampati Class: II TM Dist: >3cm Neck ROM: Full Heart: RRR Lungs: CTA Assessment and Plan Assessment Anesthesia Assessment: Anesthesia Plan Discussed Final Anesthetic Review History of Problems with Anesthesia: No NPO: Yes ASA Class: II Final Preanesthetic Review: Meds/Allgs Chart Reviewed, Consent Obtained/Reviewed and Anes Risks/Benef Reviewed Patient Risk: Low Procedure Risk: Low Anesthetic Plan Anesthetic Plan: MAC: Disposition: Standard PACU
--- NOTE | 2025-01-30 10:22 | P.OPN-COLO_ITS ---
Colonoscopy Operative Note Operative Note Date of Service: 01/30/25 Narrative: Procedure: Colonoscopy Indication: Positive cologuard Endoscopist: Ivelisse Jean MD Anesthesia Provider: Dr Celena Ríos Anesthesia type: MAC Instrument: Olympus [id number]-H190L Consent: Indication, risks vs benefits, and alternatives were discussed with the patient who gave written informed consent to proceed. EKG, pulse, pulse oximetry and blood pressure were monitored throughout the procedure. Please see anesthesia flowsheet. Procedure: The patient was brought to the procedure room and placed in the left lateral decubitus position. IV medications were administered by the anesthesia provider in attendance. A digital rectal exam was performed which was normal. A distal attachment cap was affixed to the tip of the colonoscope which was then inserted through the anus and advanced through the colon to the cecum at 75 cm. Appendiceal orifice and ileocecal valve were identified. Mucosa was carefully examined under high definition white light as the instrument was slowly withdrawn in a retrograde panoramic fashion. Retroflexion was performed in rectum. The procedure was not difficult. There were no immediate obvious complications. The quality of the prep was BBPS: 3+3+2 = adequate Withdrawal time 14 minutes. Limitations: No limitations. Findings: Mucosa: Normal to cecum. Protruding lesions: * 1 sessile polyp of size 6 mm in sigmoid colon. Hot snare was used as a cold snare and polypectomywas performed. The polyp was completely removed and retrieved. * 1 pedunculated polyp of size 15 mm in rectum. Hot snare polypectomy was performed. The polyp was completely removed and retrieved. * Large internal hemorrhoids without stigmata of recent bleeding. Excavated lesions: * Moderate diverticulosis of whole colon L>R. Impression: 1. Normal colon mucosa 2. Total of polyps removed 3. Internal hemorrhoids Recommendations: - Follow path results. - Repeat colonoscopy in 3 years
[2025-01-30 10:23] VITALS: BP 84/41; PULSE 70; RESP 16; TEMP 36.3; O2SAT 100
[2025-01-30 10:38] VITALS: BP 108/70; PULSE 69; RESP 16; TEMP 36.4; O2SAT 99
--- NOTE | 2025-01-30 18:23 | HO.POSTANES ---
Post Anesthesia Evaluation Post Anesthesia Evaluation Date of Service: 01/30/25 Vital Signs: Vital Signs Temp Pulse Resp BP Pulse Ox O2 Del Method 01/30/25 10:38 97.5 F 69 16 108/70 99 Room Air 01/30/25 10:23 97.3 F 70 16 84/41 L 100 Room Air 01/30/25 08:14 98.3 F 62 16 121/65 96 Room Air Anesthesia: Monitored Mental Status: Awake Pain Control: Satisfactory Nausea/Vomiting: None Hydration: Adequate Anesthesia-Related Issues: No Anes. Related Issues
== END 2025-01-30 11:01 | disposition home or self-care (01) ==
PROVIDERS: PCP Family Medicine; Visit Provider Internal Medicine
PROC: 0DJD8ZZ Inspection of Lower Intestinal Tract, Via Natural or Artificial Opening Endoscopic (ICD-10-PCS; CPT 45378; principal; 2025-01-30 09:30)
DX: R19.5 Other fecal abnormalities (principal); D12.5 Benign neoplasm of sigmoid colon; D12.8 Benign neoplasm of rectum; K64.8 Other hemorrhoids; J45.909 Unspecified asthma, uncomplicated; D64.9 Anemia, unspecified; Z86.19 Personal history of other infectious and parasitic diseases
CPT/HCPCS: 45385; 88305; J0168; J2003; J2704

== ENCOUNTER → 2025-01-30 07:16 | Outpatient (BNV) | payer OTHER, SELFPAY | PROVIDERS: PCP Family Medicine; Visit Provider Internal Medicine | DX: Z12.11 Encounter for screening for malignant neoplasm of colon (principal); R19.5 Other fecal abnormalities; D12.5 Benign neoplasm of sigmoid colon; D12.8 Benign neoplasm of rectum; K57.90 Diverticulosis of intestine, part unspecified, without perforation or abscess without bleeding; K64.8 Other hemorrhoids | CPT/HCPCS: 45385 ==

== ENCOUNTER → 2025-02-13 14:42 | Outpatient (BNV) | payer OTHER, SELFPAY | PROVIDERS: PCP Family Medicine; Visit Provider Radiology Diagnostic Radiology | DX: M51.370 Other intervertebral disc degeneration, lumbosacral region with discogenic back pain only (principal); M79.672 Pain in left foot | CPT/HCPCS: 72100; 73630 ==

== ENCOUNTER 2025-02-26 15:45 | Outpatient (AMB) | payer OTHER, SELFPAY ==
[2025-02-26 15:50] VITALS: BP 120/68; PULSE 79; BMI 27.3
--- NOTE | 2025-02-26 15:50 | A.OFFVIS_ITS ---
Vital Signs 02/26/25 15:50 Height 5 ft 6 in Weight 168 lb 13.985 oz BMI 27.3 BP 120/68 Blood Pressure Location Rt brachial Position Sitting Pulse 79 Intake Visit Reasons: f/u Intake Note: Iris presents in office today in follow up of s/p colonoscopy. CC: Patient reports doing well and denies having any GI symptoms today. Crap Game Box Person Required: No Allergies lobster Allergy (Severe, Verified 02/26/25 15:57) Swelling No Known Drug Allergies Allergy (Unknown, Verified 02/26/25 15:57) none shellfish derived Allergy (Unknown, Verified 02/26/25 15:57) SWELLING AND HIVES seafood Allergy (Unknown, Uncoded 12/11/24 13:57) Unknown HPI Comments Details: This is a 54-year-old female with no significant past medical history who has b een referred to our office for positive Cologuard. Patient herself reports no abdominal pain, diarrhea, rectal bleeding. No family history of colorectal cancer. She was surprised to see the results turned positive. Based on referral provided, cologuard was POSITIVE on 08/25/2024. 01/30/25: Mucosa: Normal to cecum. Protruding lesions: * 1 sessile polyp of size 6 mm in sigmoid colon. Hot snare was used as a cold snare and polypectomywas performed. The polyp was completely removed and retrieved. * 1 pedunculated polyp of size 15 mm in rectum. Hot snare polypectomy was performed. The polyp was completely removed and retrieved. * Large internal hemorrhoids without stigmata of recent bleeding. Excavated lesions: * Moderate diverticulosis of whole colon L>R. Path: A. Colon, sigmoid, polyp: Tubular adenoma, completely excised; negative for high-grade dysplasia and carcinoma. B. Colon, rectal polyp: Tubular adenoma with small foci suspicious for high- grade dysplasia, completely excised; negative for carcinoma (see comment). Comment: (B): There is no invasion and this lesion lacks metastatic potential. The adenoma has been completely excised and no further treatment of this particular lesion is necessary. 02/26/25: Patient here for postprocedure follow-up. Accompanied by family member. Reports no acute gastrointestinal complaints including abdominal pain, nausea, vomiting. Results of the colonoscopy reviewed. Had large advanced adenoma without high-grade dysplasia. This was removed en block. However, given size, will favor relook within 1 year with flexible sigmoidoscopy, and if negative, can repeat next colonoscopy in 3 years. [facility] Medical History Fibromyalgia Chronic arthralgias of knees and hips H/o Lyme disease Depression Asthma Anemia Surgical History Hx of tubal ligation No history of previous surgery Family History Maternal Aunt Cancer Maternal Uncle Esophageal cancer Father Asthma Heart attack Social History Patient Tobacco Use Status: Never used Tobacco Current occupational status: disabled Current occupation: right hand dominant Review of Systems Const All systems reviewed & are unremarkable except as noted in HPI and below Physical Exam Exam Exam: Gen appear: No acute distress HEENT: no icterus Chest: No overt resp distress Abd: soft, nontender, nondistended Psych: Stable affect, answering questions appropriately Neuro: A/Ox3 noted to move all extremities spontaneously Ext: no peripheral edema Vital Signs: Last Vital Signs Pulse 79 02/26/25 15:50 BP 120/68 02/26/25 15:50 BMI result Body Mass Index 27.3 Assessment & Plan Assessment & Plan (1) Personal history of colonic polyps: Code(s): Z86.0100 - Personal history of colon polyps, unspecified Category: Medical (2) Anemia: Code(s): D64.9 - Anemia, unspecified Category: Medical (3) Positive colorectal cancer screening using Cologuard test: Code(s): R19.5 - Other fecal abnormalities Category: Medical Plan As above, will favor another look in 1 year. Since had left-sided polyps, will repeat flexible sigmoidoscopy. If this is normal, can have full repeat colonoscopy in 3 years. Plan: -reminder set for sigmoidoscopy in a year -follow-up next year Coding Level of Care Code Est Pt Level 3 (06979) Diagnoses Personal history of colonic polyps Z86.0100 Anemia D64.9 Positive colorectal cancer screening using Cologuard test R19.5
--- OUTSIDE RECORDS SUMMARY | 2025-02-26 21:06 | XMS_ITS | Encounter Summary ---
Author Organization [employer] Address [address] [facility] 7[address] [place] [address] Care Team Providers Care Zinc Plater Name Role Phone Gracy Reynolds MD Primary Care Provider [phone] Encounter Details Date Type Department Care Team ([facility] Contact Info) Description 02/21/2025 Telephone [facility] Management [address] [place], [place] [phone] Gracy Reynolds MD [address] [place] [address] Social History Tobacco Use Types Packs/Day Years [...] documented as of this encounter Care Teams Zinc Plater Relationship Specialty Start Date End Date Gracy Reynolds MD [address] [place] [id number] PCP - General Family Medicine 01/27/22 Osmel Conn Coating Machine OperatorGymnastics Coach Or Instructor 01/04/24 documented as of this encounter
--- OUTSIDE RECORDS SUMMARY | 2025-02-26 21:06 | XMS_ITS | Encounter Summary ---
Author Organization [facility] Address [address] [place] [address] Phone Care Team Providers Care Sales Order Coordinator Name Role Phone Nancy Woodward Primary Care Provide r Osmel Mandel MD Unavailable [phone] Brianna Kulkarni MD Unavailable [phone] Harriett Butler MD Primary Care Provid er Pcp, Unknown Primary Care Provider Unavailabl e Encounter Details Date Type Department Care Team (Late st Contact Info) Description 08/06/2021 Procedure Pass [facility], [address] [address] Social History Tobacco Use Types Packs/Day Years Used Date Smoking Tobacco: Never Smokeless Tobacco: Never Alcohol Use Standard Drinks/Week Comments Yes 0 (1 standard drink = 0.6 oz pur e alcohol) occasionally Child or Family Care Answer Date Record ed Do you have problems with on e of the following making it difficult for you to work, study, or receive health care? No 08/16/2019 Education Answer Date Recorded Are you interested in help w ith more adult education (for example, completing high school, GED, job training, learning the Sami language, technical skills, or developing parenting skills)? No 08/16/2019 Are you concerned about learning? Not on file 08/16/2019 Not on file 08/16/2019 Not on file 08/16/2019 Food Answer Date Recorded Within the past 6 months we worried whether our food would run out before we got money to buy more. Never True 08/16/2019 Within the past 6 months the food we bought just didn't last and we didn't have enough money to get more. Never True 0 Paying for Meds Answer Date Recorded Do you have trouble paying for medicines? No 08/16/2019 Paying Utility Bills Answer Date Record ed Do you have trouble paying your heating or elect ricity bill? No 08/16/2019 Transportation Answer Date Recorded Has the lack of transportati on kept you from medical appointments or from getting medications? No 08/16/2019 Comments No Sex and Gender Information Value Date Recorded Sex Assigned at Female 08/03/2019 4:29 PM EST Legal Sex Female 4:12 PM EDT Gender Identity Female 08/03/2019 4:29 PM EST Sexual Orientation Straight 08/03/2019 4: 29 PM EST documented as of this encounter Plan of Treatment Not on file documented as of this encounter Visit Diagnoses Not on filedocumented in this encounter Care Teams Sales Order Coordinator Relationship Specialty Start Date End Date Nancy Woodward PA [address] [place] [phone] [email or web address] PCP - General 08/03/19 11/23/21 Harriett Butler MD [address] [place] [address] [place] [phone] [email or web address] PCP - General Family Medicine 11/24/21 01/28/22 Pcp, Unknown PCP - General 01/29/22 Osmel Mandel MD [address] [place] [address], [address] [place] [address] [email or web address] Insurance Assigned Provider Internal Medicine 09/15/19 Brianna Kulkarni MD [address] [place] [address], [address] [place] [address] [email or web address] Insurance Assigned Provider 07/20/21 06/20/22 documented as of this encounter Additional Source Comments The information contained in this document represents components of the legal health record. It is not the complete legal health record.[facility]
--- OUTSIDE RECORDS SUMMARY | 2025-02-26 21:06 | XMS_ITS | Encounter Summary ---
Author Organization [employer] Address [address] [facility] 7[address] [place] [address] Care Team Providers Care Ballistician Name Role Phone Gracy Reynolds MD Primary Care Provider [phone] Encounter Details Date Type Department Care Team ([facility] st Contact Info) Description 10/16/2022 Orders Only [facility] MED[facility]INE [address] [place], [place] [phone] Gracy Reynolds MD [address] [place], [place] [phone] Mixed stress and urge urinary incontinence (Primary [...] documented as of this encounter Care Teams Ballistician Relationship Specialty Start Date End Date Gracy Reynolds MD [address] [place] [address] PCP - General Family Medicine 01/27/22 Osmel Conn Nurse Staff IndustrialMingler Operator 01/04/24 documented as of this encounter
--- OUTSIDE RECORDS SUMMARY | 2025-02-26 21:06 | XMS_ITS | Encounter Summary ---
Author Organization [employer] Address [address] [place] [address] Care Team Providers Care Paper Rewinder Name Role Phone Gracy Reynolds MD Primary Care Provider Encounter Details Date Type Department Care Team ([facility] st Contact Info) Description 11/16/2023 Orders Only [facility] MEDICINE [address] [place], [place] [phone] Gracy Reynolds MD [address] [place], [place] [phone] Social History Tobacco Use Types Packs/Day Years [...] AM EDT documented as of this encounter Functional Status * Over the past 2 weeks, how often have you been bothered by any of the following problems? Question Answer Date of Assessment Author Patient Health Questionnaire -2 Score 0 11/16/2023 9:15 AM Heavenly Mejias [place] * Over the past 2 weeks, how often have you been bothered by any of the following problems? Question Answer Date of Assessment Author Little interest or pleasure in doing things Not at all 11/16/2023 9:15 AM Heavenly Mejias MA Feeling down, depressed, or hopeless Not at all 11/16/2023 9:15 AM Heavenly Mejias MA Trouble falling or staying asleep, or sleeping too much Not at all 11/16/2023 9:15 AM Lisa Mejias MA Feeling tired or having little energy Not at all 11/16/2023 9:15 AM Heavenly Mejias MA Poor appetite or overeating Not at all 11/16/2023 9: 15 AM Lisa Mejias MA Feeling bad about yourself - or that you are a failure or have let yourself or your family down Not at all 11/16/2023 9:15 AM Heavenly Mejias MA Trouble concentrating on things, such as reading the newspaper or watching television Not at all 11/16/2023 9:15 AM Heavenly Mejias MA Moving or speaking so slowly that other people could have noticed? Or the opposite - being so fidgety or restless that you have been moving around a lot more than usual. Not at all 11/16/2023 9:15 AM EDT Lisa Wright MA Thoughts that you would be better off or hurting yourself in some way Not at all 11/16/2023 9:15 AM EDT Sonido Wright MA Patient Health Questionnaire-9 Score 0 11/16/2023 9:15 AM EDT Terry Wright MA documented as of this encounter Plan of Treatment Not on file documented as of this encounter Visit Diagnoses Not on filedocumented in this encounter Additional Health Concerns Assessment Noted Time PHQ-9 Depression Total Score: 0 11/16/19 9:15 AM EDT documented as of this encounter Care Teams Paper Rewinder Relationship Specialty Start Date End Date Gracy Reynolds MD [address] [place] [address] PCP - General Family Medicine 01/27/22 Osmel Conn Trade FacilitatorBusiness Applications Specialist 01/04/24 documented as of this encounter
--- OUTSIDE RECORDS SUMMARY | 2025-02-26 21:06 | XMS_ITS | Clinical Summary ---
Author Organization [facility] Address [address] [place] [address] Care Team Providers Care Assembler Wet Wash Name Role Phone Unavailable Primary Care Provider [...] 01/14/2010 Imm-Zoster, Recombinant (1 of 2) 2022 Alcohol and Drug Screen 06/14/2024 Depression Annual Screen 06/14/2024 Exv-[id number]-57 ( season) 2025 021, 09/25/2020 Imm-Influenza (#1) 2025 05/03/2020, 0 03/09/2019, 05/04/2013, Additional history exists Cervical Ablation/Cold-Knife Conization Discontinued Cervical Cryotherapy Discontinued Colposcopy Discontinued Endometrial Biopsy Discontinued Excision/Leep Discontinued HPV Genotyping Discontinued Vaginal Pap Discontinued Vulvoscopy Discontinued Insurance [place] MEDICAID
--- OUTSIDE RECORDS SUMMARY | 2025-02-26 21:06 | XMS_ITS | Encounter Summary ---
Author Organization [employer] Address [address] [place] [address] Care Team Providers Care Dungeon Master Name Role Phone Gracy Reynolds MD Primary Care Provider [phone] Reason for Visit * Reason Onset Date Comments Referral 02/19/2025 Encounter Details Date Type Department Care Team ([facility] st Contact Info) Description 02/19/2025 Telephone [facility] MEDICINE [address] [place], [place] [phone] Gracy Reynolds MD [address] [place], [place] [phone] Referral Social History Tobacco Use Types Packs/Day Years [...] Telephone Encounter - Desiree Abernathy RN - 02/21/2025 10:07 AM EDT Telephone call placed to pt regarding below message. No answer, left v/m. Will also send [employer] message. If pt returns call please ask her if she wants to go to the cardiology office she used to go to or [facility] cardiology? Thank you! Patient was going to [facility], not [facility]. Please ask patient if she wants to go back to [facility] or go to [facility]. I will send a referral to cardiology. Please inform radiation control specialist about her choice. Thankyou * Telephone Encounter - Malik Munoz - 02/19/2025 11:38 AM EDT Patient walked in requesting a cardiology referral to [facility]. documented in this encounter Plan of Treatment Not on file documented as of this encounter Visit Diagnoses Not on filedocumented in this encounter Additional Health Concerns Assessment Noted Time PHQ-9 Depression Total Score: 7 08/17/19 25 11:33 AM EST documented as of this encounter Care Teams Dungeon Master Relationship Specialty Start Date End Date Gracy Reynolds MD [address] [place] [address] PCP - General Family Medicine 01/27/22 Osmel Conn Psychological OperationsShirt Creaser 01/04/24 documented as of this encounter
--- OUTSIDE RECORDS SUMMARY | 2025-02-26 21:06 | XMS_ITS | Encounter Summary ---
Author Organization [employer] Address [address] 7t [place] [address] Care Team Providers Care Engraver Name Role Phone Gracy Reynolds MD Primary Care Provider [phone] Reason for Referral * Consultation (Routine) - Authorized Specialty Diagnoses / Procedures Referred By Contmariana t Referred To Contact Cardiology Diagnoses Other cardiomyopathy (CMS/HCC) Gracy Reynolds MD [address] [place] [address] Phone: tel: fax: [facility] Referral ID Status Reason Start Date Expiration Date Visits Requested Visits Authorized [id number] Authorized Specialty Services Required 02/20/2025 02/20/2026 1 1 Encounter Details Date Type Department Care Team ([facility] st Contact Info) Description 02/20/2025 Orders Only [facility] MEDICINE [address] [place], [place] [phone] Gracy Reynolds MD [address] [place], [place] [phone] Other cardiomyopathy (CMS/HCC) (Primary Dx) Social History Tobacco Use Types [...] as of this encounter Miscellaneous Notes * Assessment & Plan Note - Gracy Reynolds MD - 02/20/2025 5:40 PM EDTAssociated Problem(s): Cardiomyopathy (CMS/HCC) - Hx Lyme disease, developed mild conduction abnormality - Following with [facility]FA provider, last seen in Feb 2023 - Low-normal EF on TTE - Continue current treatment plan per window decorator documented in this encounter Plan of Treatment Scheduled Referrals Name Type Priority Associated Diagnoses Orde r Schedule Referral to Cardiology Outpatient Referral Routine Other cardiomyopathy (CMS/HCC) Expected: 02/20/2025 (Approximate), Expires: 02/20/2026 documented as of this encounter Visit Diagnoses Diagnosis Other cardiomyopathy (CMS/HCC)- Primary documented in this encounter Additional Health Concerns Assessment Noted Time PHQ-9 Depression Total Score: 7 08/17/19 11:33 AM EST documented as of this encounter Care Teams Engraver Relationship Specialty Start Date End Date Gracy Reynolds MD [address] [place] [id number] PCP - General Family Medicine 01/27/22 Osmel Conn Chief Customer OfficerTransfusion Nurse 01/04/24 documented as of this encounter
--- OUTSIDE RECORDS SUMMARY | 2025-02-26 21:06 | XMS_ITS | Encounter Summary ---
Author Organization [facility] Address [address] [place] [phone] Phone Care Team Providers Care Waiter/Waitress Formal Name Role Phone Nancy Woodward Primary Care Provide r Osmel Mandel MD Unavailable [phone] Mendez Villanueva MD Unavailable [phone] Rufino Varela MD Unavailable [phone] Brianna Kulkarni MD Unavailable [phone] Harriett Butler MD Primary Care Provid er Pcp, Unknown Primary Care Provider Unavailabl e Encounter Details Date Type Department Care Team (Late st Contact Info) Description 03/01/2020 Procedure Pass [facility], [address] [address] Social History Tobacco Use Types Packs/Day Years Used Date Smoking Tobacco: Never Smokeless Tobacco: Never Alcohol Use Standard Drinks/Week Comments Not Currently 0 (1 standard drink = 0.6 oz [...] high school, GED, job training, learning the Ethiopian language, technical skills, or developing parenting skills)? [...] filedocumented in this encounter Additional Health Concerns Infection Onset Date Last Indicated Resolved Time CoV-Exposed Comment:Recent close contact documented in the COVID-19 PCR/PRO order 02/06/2021 02/11/2021 03/03/2021 1:21 AM E DT CoV-Risk 02/11/2021 02/12/2021 02/22/2021 1:24 AM EDT documented as of this encounter Care Teams Waiter/Waitress Formal Relationship Specialty Start Date End Date Nancy Woodward PA [address] [place] [phone] [email or web address] PCP - General 08/03/19 11/23/21 Harriett Butler MD [address] [place] [id number] [email or web address] PCP - General Family Medicine 11/24/21 01/28/22 Pcp, Unknown PCP - General 01/29/22 Osmel Mandel MD [address] [place] [address], [address] [place] [address] Insurance Assigned Provider Internal Medicine 09/15/19 Mendez Villanueva MD [address] [place] [address], [address] [place] [address] Insurance Assigned Provider 02/22/21 04/19/21 Rufino Varela MD [address] [place] [address], [address] [place] [address] Insurance Assigned Provider 04/19/21 07/20/21 Brianna Kulkarni MD [address] [place] [address], [address] [place] [address] Insurance Assigned Provider 07/20/21 06/20/22 documented as of this encounter Additional Source Comments The information contained in this document represents components of the legal health record. It is not the complete legal health record.[facility]
--- OUTSIDE RECORDS SUMMARY | 2025-02-26 21:06 | XMS_ITS | Encounter Summary ---
Author Organization [email or web address] Address [address] [facility] 7t [place] [address] Care Team Providers Care Hot Tamale Worker Name Role Phone Gracy Reynolds MD Primary Care Provider [phone] Reason for Visit * Reason Onset Date Comments Nurse Triage 12/25/2022 Encounter Details Date Type Department Care Team ([facility] st Contact Info) Description 12/25/2022 Telephone [facility] MEDICINE [address] [place], [place] [phone] Gracy Reynolds MD [address] [place], [place] [phone] Nurse Triage Social History Tobacco Use Types [...] Triage call Pt reports being seen in [facility] 12[place] for backpain. Now Pt reports a [...] documented as of this encounter Care Teams Hot Tamale Worker Relationship Specialty Start Date End Date Gracy Reynolds MD [address] [place] [address] PCP - General Family Medicine 01/27/22 Osmel Conn Sawmill Equipment OperatorEquity Structurer 01/04/24 documented as of this encounter
--- OUTSIDE RECORDS SUMMARY | 2025-02-26 21:06 | XMS_ITS | Encounter Summary ---
Author Organization [employer] Address [address] [facility] 7t [place] [address] Care Team Providers Care Quality Tech Name Role Phone Gracy Reynolds MD Primary Care Provider [phone] Encounter Details Date Type Department Care Team ([facility] st Contact Info) Description 03/12/2023 Orders Only [facility] MEDICINE [address] [place], [place] [phone] Gracy Reynolds MD [address] [place], [place] [phone] Social History Tobacco Use Types Packs/Day Years [...] documented as of this encounter Care Teams Quality Tech Relationship Specialty Start Date End Date Gracy Reynolds MD [address] [place], [place] [phone] PCP - General Family Medicine 01/27/22 Osmel Conn Pathology Laboratory DirectorNurse Charge Rn 01/04/24 documented as of this encounter
--- OUTSIDE RECORDS SUMMARY | 2025-02-26 21:06 | XMS_ITS | Encounter Summary ---
Author Organization [employer] Address [address] [facility] [address]t [place] [address] Care Team Providers Care Pecan Mallow Dipper Name Role Phone Gracy Reynolds MD Primary Care Provider [phone] Reason for Visit * Reason Comments Med Refill Encounter Details Date Type Department Care Team ([facility] st Contact Info) Description 10/01/2024 Refill [facility] MEDICINE [address] [place], [place] [phone] Gracy Reynolds MD [address] [place], [place] [phone] Social History Tobacco Use Types Packs/Day Years [...] documented as of this encounter Care Teams Pecan Mallow Dipper Relationship Specialty Start Date End Date Gracy Reynlods MD [address] [place] [address] PCP - General Family Medicine 01/27/22 Osmel Conn Shaper SetterGuillotine Trimmer 01/04/24 documented as of this encounter
--- OUTSIDE RECORDS SUMMARY | 2025-02-26 21:06 | XMS_ITS | Clinical Summary ---
Author Organization [employer] Address [address] [facility] [address] [place] [address] Care Team Providers Care Cpr Instructor Name Role Phone Gracy Reynolds MD Primary Care Provider [phone] Allergies Active Allergy Reactions Criticality Noted Date Comments Cat Dander 05/19/2023 Iodine Unknown 08/18/2010 Shellfish Allergy Itching 12/22/2019 LOBSTER Other reaction(s): itching, swelling Medications EPINEPHrine (Epipen) 0.3 MG/0.3ML injection syringe Inject 0.3 mL (0.3 mg) as directed 1 (one) time if needed for anaphylaxis. Inject into upper leg. Call 911 after use. 1 each 2 4 Active Benzoyl Peroxide Wash 5 % external wash APPLY TO AFFECTED AREA TOPICALLY EVERY DAY 236 mL 11 5 Active lidocaine (Lidoderm) 5 % patch PLACE 1 PATCH ONTO THE SKIN DAILY. REMOVE & DISCARD PATCH WITHIN 12 HOURS OR DIRECTED BY MD 30 patch 11 5 Active albuterol (2.5 MG/3ML) 0.083% nebulizer solution INHALE CONTENTS OF 1 VIAL VIA NEBULIZER EVERY 4 HOURS IF NEEDED FOR WHEEZING OR SHORTNESS OF BREATH (MAXIMUM 4/DAY) 75 mL 5 Active cholecalciferol VITAMIN D (Vitamin D-3) 50 MCG (1999 UT) tablet Take 1 tablet (50 mcg) by mouth Once per day. 90 tablet 3 5 Active albuterol (Ventolin HFA) 108 (90 Base) MCG/ACT inhaler INHALE 2 PUFFS EVERY 4 (FOUR) HOURS IF NEEDED FOR WHEEZING OR SHORTNESS OF BREATH. 18 g 5 Active DULoxetine (Cymbalta) [address] capsule TAKE 1 CAPSULE BY MOUTH EVERY DAY 90 capsule 1 5 Active meloxicam (Mobic) 7.5 MG tablet TAKE 1 TABLET BY MOUTH IF NEEDED IN THE MORNING AND AT BEDTIME FOR MODERATE PAIN 30 tablet 1 5 Active fluticasone furoate (Arnuity Ellipta) 100 MCG/ACT inhaler INHALE 1 PUFF BY MOUTH ONCE A DAY 30 each 1 5 Active tiZANidine (Zanaflex) 2 MG tabletIndicatio ns:Chronic bilateral low back pain without sciatica Take 1 tablet (2 mg) by mouth every 8 (eight) hours if needed for muscle spasms. 21 tablet 5 Active Active Problems Problem Noted Date Diagnosed Date Left foot pain 02/13/2025 Assessment & Plan (02/13/2025 2:14 PM EDT): On exam, there is no redness, no swelling, pain primarily affecting the base of her 3rd and fourth toe Plan: Plain films left foot, podiatry consult Elevated BP without diagnosis of hypertension Assessment & Plan (08/23/2024 5:46 AM EDT): -Goal BP < 140/90 per JNC-8 and < 130/80 per ACC/AHA guideline (Treatment threshold >=140/90) -likely transient due to pain -Continue working on lifestyle modifications -Recommended self-monitoring BP. Onychomycosis 04/05/2024 Assessment & Plan (08/16/2024 8:53 [...] which is prescribed by [facility] provider at [facility] - she has tried gabapentin, cyclobenzaprine, and diclofenac gel which she did not take because she dislikes medications - restarted gabapentin in December when she was seen for Shingles Assessment & Plan (11/16/2023 5:51 PM EDT): - continue duloexetine, which is prescribed by [facility] provider at [facility] - she has tried gabapentin, cyclobenzaprine, and diclofenac gel which she did not take because she dislikes medications - restarted gabapentin in December when she was seen for Shingles Assessment & Plan (07/16/2023 9:41 AM EST): - restarted duloexetine, which is prescribed by S provider at [facility] - she has tried gabapentin, cyclobenzaprine, and diclofenac gel which she did not take because she dislikes medications - restarted gabapentin in December when she was seen for Shingles Assessment & Plan (05/25/2023 11:51 AM EST): - restarted duloexetine, which is prescribed by [facility] provider at [facility] - she has tried gabapentin, cyclobenzaprine, [...] (08/16/2024 8:52 AM EST): - seen by [facility] in [...] no spinal cord compression. - following with [facility] in [place] previously and was referred to neurosurgeon - seen by neurosurgeon, Dr. Ramsey, at [facility] in October 2021. Impression was that [...] has a normal EF Assessment & Plan (02/20/2025 5:40 PM EDT): - Hx Lyme disease, developed mild conduction abnormality - Following with [facility] provider, last seen in Feb 2023 - Low-normal EF on TTE - Continue current treatment plan per pcts Assessment & Plan (11/16/2023 5:51 PM EDT): - Hx Lyme disease, developed mild conduction abnormality - Following with [facility] provider, last seen in Feb 2023 - Low-normal EF on TTE - Continue current treatment plan per pcts Assessment & Plan (05/25/2023 11:49 AM EST): - Hx Lyme disease, developed mild conduction abnormality - Following with [facility] provider, last seen in August 2022 - Low-normal EF on TTE - Continue current treatment plan per pcts Assessment & Plan (01/15/2023 5:08 PM EDT): - Hx Lyme disease, developed mild conduction abnormality - Following with [facility] provider, last seen in August 2022 - Normal EF on TTE - Continue current treatment plan per pcts Assessment & Plan (09/28/2022 11:23 AM EDT): - Hx Lyme disease, developed mild conduction abnormality - Following with [facility] provider - Continue current treatment plan per pcts Chronic bilateral low back pain without sciatica 09/28/2019 Assessment & Plan (02/13/2025 2:13 PM EDT): Pt here with c/o acute on chronic low back pain On exam there is muscle spasm Etiology ? Sciatica Plan: Muscle relaxant, PT eval, plain films LS spine Assessment & Plan (05/25/2023 11:51 AM EST): [...] no spinal cord compression. - following with [facility] in [place] previously and was referred to neurosurgeon - seen by neurosurgeon, Dr. Ramsey, at [facility] in October 2021. Impression was that [...] no spinal cord compression. - following with [facility] in [place] previously and was referred to neurosurgeon - seen by neurosurgeon, Dr. Ramsey, at [facility] in October 2021. Impression was that [...] (04/05/2024 9:10 AM EDT): - S provider: [facility] - continue current medications as prescribed by the provider. Assessment & Plan (11/16/2023 5:52 PM EDT): - S provider: [facility] - continue current medications as prescribed by the provider. Assessment & Plan (05/25/2023 11:59 AM EST): - S provider: [facility] - continue current medications as prescribed by the provider. Prescribed oxybutynin. Abnormal finding on breast imaging 08/16/2019 Overview (09/10/2022): Stereotactic biopsy on 02/22/2019-benign findings, recommended annual screening mammogram Last Assessment & Plan: Underwent stereotactic bx about 1.5 years ago at [facility]. Scheduled for upcoming mammogram, reports some chronic [...] Encounters Date Type Department Care Team Description 02/21/2025 Telephone [facility] [place] [address] Gracy Reynolds MD 02/20/2025 Orders Only [facility] [place] [address] Gracy Reynolds MD 02/20/2025 Orders Only [facility] [place] [address] Gracy Reynolds MD Other cardiomyopathy (CMS/HCC) (Primary Dx) 02/19/2025 Telephone [facility] [place] [address] Gracy Reynolds MD Referral 02/13/2025 1:40 PM EDT Office Visit [facility] [place] [address] Tc Rapp MD Chronic bilateral low back pain without sciatica (Primary Dx); Left foot pain 02/13/2025 Results Follow-Up [facility] [place] [address] Tc Rapp MD XR Lumbar Spine 2-3 Views 02/13/2025 Travel 02/08/2025 Telephone [facility] [place] [address] Gracy Reynolds MD 01/30/2025 Orders Only GENERIC EXTERNAL DATA DEPARTMENT Provider, Generic External Data 01/29/2025 Telephone [facility] [phone] Gracy Reynolds MD 01/29/2025 Telephone [facility] [address] [place], [place] [phone] Gracy Reynolds MD 01/25/[address] [address] Gracy Reynolds MD 01/19/[address] [address] Gracy Reynolds MD 12/14/2024 Refill [facility] [address] [place], [place] [phone] Gracy Reynolds MD from Last 3 Months Immunizations Immunization Administration Dates Next Due Hep B, adult 08/16/2024 Influenza Injectable Quadriv alant Preservative Free IIV4 MDCK 02/23/2023 Influenza injectable quadriv alent preservative free 03/31/2022,03/05/2021,05/03/2020,03/09 Influenza, IIV3, injectable 03/31/2011, 0 Influenza, Split (incl. blanca fied surface antigen) 05/04/2013 Influenza, seasonal, injecta ble, preservative free 04/05/2024 Pfizer Covid-19 Vaccine 12+ 04/05/2024, 1 Pfizer Covid-19 Vaccine 12+ Bivalent 03/31/2022 Pneumococcal [...] Sign Reading Time Taken Comments Blood Pressure 117/82 02/13/2025 1:57 PM EDT Pulse 81 02/13/2025 1:57 PM EDT Temperature 36.7 C (98 F) 02/13/2025 1:57 PM EDT Respiratory Rate 16 02/13/2025 1:57 PM EDT Oxygen Saturation 98% 02/13/2025 1:57 PM EDT Inhaled Oxygen Concentration - - Weight 77.1 kg (170 lb) 02/13/2025 1:57 PM EDT Height 167.6 cm (5' 6 ) 04/05/2024 8:57 AM EDT Body Mass Index 27.44 04/05/2024 8:57 AM EDT Plan of Treatment Health Maintenance Due Date Last Done Comments CT Colonography 1970 Colonoscopy 1970 FIT 1970 Sigmoidoscopy 1970 Disability Screening 1970 Family Planning (PISQ) 1987 Hepatitis B Vaccines (2 of 3 - 19+ 3-dose series) 09/13/2024 08/16/2024 SDOH Screening 11/15/2024 11/16/2023 Influenza Vaccine (#1) 2025 , 04/05/2024, 02/23/2023, Additional history exists Alcohol/Substance Use Screening 04/05/2025 04/05/2024 Depression Screening 08/16/2025 08/16/2024, 08/17/19 FOBT 08/25/2025 08/25/2024 Tobacco Screening 02/13/2026 02/13/2025 Mammogram 06/30/2026 06/30/2024, 02/13, 10/15/2021, Additional history exists Colorectal Cancer Screening 08/26/2027 FIT DNA/Cologuard 08/26/2027 08/25/2024 Cervical Cancer Screening 02/09/2028 HPV/Cotest 02/09/2028 02/08/2023, [...] Completed 04/05/2024, , 05/22/2021, Additional history exists HIB Vaccines Aged Out [...] patient's age to complete this topic Meningococcal B Vaccine Aged Out No l onger eligible based on patient's age to complete [...] Procedure Name Priority Date/Time Associated Diagnosis Comments XR FOOT 3+ VIEWS LEFT Routine 02/13/2025 2:13 PM EDT Left foot pain XR LUMBAR SPINE 2-3 VIEWS Routine 02/13/2025 2:09 PM EDT Chronic bilateral low back pain without sciatica HEMATOXYLIN AND EOSIN STAIN Routine 01/30/2025 10:10 AM EDT LAB COLOGUARD COLON CANCER SCREEN Routine 08/25/2024 1:40 PM EDT Screening for colon cancer BI MAMMOGRAM SCREENING TOMOSYNTHESIS BILATERAL Routine 06/30/2024 [...] Recently Relevant to Health Maintenance Results * XR Foot 3+ Views Left (02/13/2025 2:13 PM EDT) Anatomical Region Laterality Modality Lower Extremities, Foot Left Radiogra phic Imaging 02/13/2025 2:13 PM EDT Narrative 02/13/2025 3:27 PM EDT [address] [address] XRay Report Signed Patient: Alison Munoz MR#: [id number] 81 : 1970 Acct:[id number] Age/Sex: 54 / F ADM Date: 02/13/25 Loc: HO.PT Attending Dr: Malika Cornejo PA-C Ordering Physician: Tc Pool MD Date of Service: 02/13/25 Procedure(s): XR foot LT min 3V Accession Number(s): [id number] cc: Tc Pool MD; Gracy Reynolds MD Reason for Exam: left foot pain EXAMINATION: XR FOOT, LEFT CLINICAL INFORMATION: left foot pain COMPARISON: None available. TECHNIQUE: AP, lateral, and oblique views of the left foot. FINDINGS: The bones and soft tissues are normal. No fracture. Alignment is anatomic. Joint spaces are maintained. XR/XR foot LT min 3V IMPRESSION: Normal left foot. Electronically signed by: Bear Villa MD 02/13/2025 03:24 PM EDT RP Dictated By: Bear Villa MD Signed By: <Electronically signed by Bear Villa MD in OV> 02/13/25 1524 DD/ 1413 TD/TT: 02/13/25 1413 [employer]: Procedure Note Roman, Barron - 02/13/2025 [place] [address] XRay Report Signed Patient: Alison MunozMR#: [id number] 81 : 1970Acct:[id number] Age/Sex: 54 / FADM Date: 02/13/25 Loc: HO.PT Attending Dr: Malika Cornejo PA-C Ordering Physician: Tc Pool MD Date of Service: 02/13/25 Procedure(s): XR foot LT min 3V Accession Number(s): [id number] cc: Tc Pool MD; Gracy Reynolds MD Reason for Exam: left foot pain EXAMINATION: XR FOOT, LEFT CLINICAL INFORMATION: left foot pain COMPARISON: None available. TECHNIQUE: AP, lateral, and oblique views of the left foot. FINDINGS: The bones and soft tissues are normal. No fracture. Alignment is anatomic. Joint spaces are maintained. XR/XR foot LT min 3V IMPRESSION: Normal left foot. Electronically signed by: Bear Villa MD 02/13/2025 03:24 PM EDT RP Dictated By: Bear Villa MD Signed By: <Electronically signed by Bear Villa MD in OV> 02/13/25 1524 DD/ 1413 TD/TT: 02/13/25 1413 [employer]ater [employer] Packer: us Tc Casas MD IMG XR PROCEDURES Fin al Result * XR Lumbar Spine 2-3 Views (02/13/2025 2:09 PM EDT) Anatomical Region Laterality Modality Spine, L-spine Radiographic Lisa ging 02/13/2025 2:09 PM EDT Narrative 02/13/2025 3:33 PM EDT [place] [address] XRay Report Signed Patient: Alison Munoz MR#: [id number] [birth year] : 1970 Acct:[id number] Age/Sex: 54 / F ADM Date: 02/13/25 Loc: HO.PT Attending Dr: Malika Cornejo PA-C Ordering Physician: Tc Pool MD Date of Service: 02/13/25 Procedure(s): XR lumbar spine 2-3V Accession Number(s): [id number] cc: Tc Pool MD; Gracy Reynolds MD Reason for Exam: low back pain EXAMINATION: XR LUMBOSACRAL SPINE CLINICAL INFORMATION: low back pain COMPARISON: None available. TECHNIQUE: Three views of the lumbosacral spine. FINDINGS: There is a minimal right convex scoliosis. There is a normal lordosis. There is no subluxation. No fracture, compression deformity, or suspicious bone lesion. There is normal facet alignment. No significant facet arthrosis. There is early disc degeneration at L5-S1. Discs otherwise preserved. SI joints appear grossly normal. The sacrum is intact. Soft tissues demonstrate no discrete abnormalities. XR/XR lumbar spine 2-3V IMPRESSION: 1. Early degenerative disc changes at L5-S1. Otherwise normal exam. Electronically signed by: Bear Villa MD 02/13/2025 03:30 PM EDT RP Dictated By: Bear Villa MD Signed By: <Electronically signed by Bear Villa MD in OV> 02/13/25 1530 DD/ 1409 TD/TT: 02/13/25 1410 [employer]acker: Procedure Note Donotuseinterpreter, Image - 02/13/[address] [address] XRay Report Signed Patient: Carrol Munoz#: [id number] [birth year] : 1970Acct:[id number] Age/Sex: 54 / FADM Date: 02/13/25 Loc: HO.PT Attending Dr: Malika Cornejo PA-C Ordering Physician: Tc Pool MD Date of Service: 02/13/25 Procedure(s): XR lumbar spine 2-3V Accession Number(s): [id number] cc: Tc Pool MD; Gracy Reynolds MD Reason for Exam: low back pain EXAMINATION: XR LUMBOSACRAL SPINE CLINICAL INFORMATION: low back pain COMPARISON: None available. TECHNIQUE: Three views of the lumbosacral spine. FINDINGS: There is a minimal right convex scoliosis. There is a normal lordosis. There is no subluxation. No fracture, compression deformity, or suspicious bone lesion. There is normal facet alignment. No significant facet arthrosis. There is early disc degeneration at L5-S1. Discs otherwise preserved. SI joints appear grossly normal. The sacrum is intact. Soft tissues demonstrate no discrete abnormalities. XR/XR lumbar spine 2-3V IMPRESSION: 1. Early degenerative disc changes at L5-S1. Otherwise normal exam. Electronically signed by: Bear Villa MD 02/13/2025 03:30 PM EDT RP Dictated By: Bear Villa MD Signed By: <Electronically signed by Bear Villa MD in OV> 02/13/25 1530 DD/ 1409 TD/TT: 02/13/25 1410 [employer]acker: us Tc Casas MD IMG XR PROCEDURES Fin al Result * Hematoxylin and Eosin Stain (01/30/2025 10:10 AM EDT) 01/30/2025 10:1 0 AM EDT 01/30/2025 10:25 AM EDT [facility] - 01/31/2025 2:09 PM EDT ----- ------- Name: Alison Munoz Age/Sex: 54/F : 1970 Unit#: [id number] Attend Dr: Ivelisse Jean MD Re01/30/25 Status: [facility] Location: [facility] Disch: ----- ------- SPEC : [id number] RECD: 01/30/25 STATUS: MAYRA [facility] NUM: [id number] MARTY: 01/30/25-1010 [facility] DR: Ivelisse Jean MD ENTERED: 01/30/25 SP TYPE: Surgical OTHR DR: Gracy Reynolds MD ORDERED: HE Stain/6, Gross Micro L4/2 Diagnosis A. Colon, sigmoid, polyp: Tubular adenoma, completely excised; negative for high-grade dysplasia and carcinoma. B. Colon, rectal polyp: Tubular adenoma with small foci suspicious for high-grade dysplasia, completely excised; negative for carcinoma (see comment). Comment: (B): There is no invasion and this lesion lacks metastatic potential. The adenoma has been completely excised and no further treatment of this particular lesion is necessary. Clinical History Pre-Op Dx: Positive Cologaurd Post-Op Dx: Diverticulosis, colon polyps, hemorrhoids Microscopic Description Microscopic sections reviewed. Material Received A. Sigmoid colon polyp B. Rectal polyp Gross Description Received in two parts. Part A: Received in formalin labeled sigmoid colon polyp is a 0.9 cm wedge-shaped fragment of villatoro mucosa with a central 0.4 cm pink-red papule. The resected base is inked and the specimen is sectioned and entirely submitted in a cassette labeled A. Part B: Received in formalin labeled rectal polyp are two congested and hemorrhagic villatoro- red papules and polypoid portions of tissue measuring 0.4 and 1.0 cm. The resected base of the larger, lobular and polypoid fragment is inked and the specimen is sectioned and entirely submitted along with the smaller tissue fragment, submitted in toto in a cassette labeled B. CEDS CONTINUED ON NEXT PAGE ----- ------- Name: AlexanderAlison Age/Sex: 54/F : 1970 Unit#: [id number] Attend Dr: Ivelisse Jean MD Re01/30/25 Status: [facility] Location: [facility] Disch: ----- ------- SPEC : [id number] RECD: 01/30/25 STATUS: MAYRA [facility]OVER NUM: [id number] MARTY: 01/30/25-0 [facility] DR: Ivelisse Jean MD ENTERED: 01/30/25 SP TYPE: Surgical OTHR DR: Gracy Reynolds MD ORDERED: HE Stain/6, Gross Micro L4/2 IHC S/NG Disclaimer NOTE: Unless otherwise stated, all tissue is formalin-fixed and paraffin-embedded. Some or all of the immunohistochemical tests reported herein may have been developed and their performance characteristics determined by [facility]. They have not been cleared or approved by the U.S. Food and Drug Administration (FDA). However, the FDA has determined that such clearance or approval is not necessary. This laboratory is certified under the Clinical Laboratory Improvement Amendments of 1988 (CLIA) as qualified to perform high complexity clinical laboratory testing. Copies To: Gracy Reynolds MD [address] [address] Ivelisse Jean MD [facility] [address] [place] [id number] [email or web address] ----- ------- Signed (signature on file) Nathalia Booker 01/31/25 1409 ----- ------- END OF REPORT us Generic External Data Provider LAB BLOOD ORDERAB LES Final Result [facility] [address] [place] [phone] * (ABNORMAL) Cologuard?? colon cancer screening (08/25/2024 1:40 PM EDT) Cologuard Result Positive( A) Negative 08/30/2024 4:32 AM EDT [facility] (CLIA #:[id number]) Comment: POSITIVE TEST RESULT. A positive Cologuard result should be followed with a colonoscopy or visual examination of the colon. The normal value (reference range) for this assay is negative. TEST DESCRIPTION: Composite algorithmic analysis of stool DNA-biomarkers with hemoglobin immunoassay. Quantitative values of individual biomarkers are not reportable and are not associated with individual biomarker result reference ranges. Cologuard is intended for colorectal cancer screening of adults of either sex, 45 years or older, who are at average-risk for colorectal cancer (CRC). Cologuard has been approved for use by the U.S. FDA. The performance of Cologuard was established in a cross sectional study of average-risk adults aged 50-84. Cologuard performance in patients ages 45 to 49 years was estimated by sub-group analysis of near-age groups. Colonoscopies performed for a positive result may find as the most clinically significant lesion: colorectal cancer [4.0%], advanced adenoma (including sessile serrated polyps greater than or equal to 1cm diameter) [20%] or non- advanced adenoma [31%]; or no colorectal neoplasia [45%]. These estimates are derived from a prospective cross-sectional screening study of 10,000 individuals at average risk for colorectal cancer who were screened with both Cologuard and colonoscopy. (Sally Lang al, N Engl J Med 2014;370(14):0716-1324.) Cologuard may produce a false negative or false positive result (no colorectal cancer or precancerous polyp present at colonoscopy follow up). A negative Cologuard test result does not guarantee the absence of CRC or advanced adenoma (pre-cancer). The current Cologuard screening interval is every 3 years. ([place] [employer] Society and U.S. Multi-Society Task Force). Cologuard performance data in a 10,000 patient pivotal study using colonoscopy as the reference method can be accessed at the following location: [email or web address].JellyCloud/results. Additional description of the Cologuard test process, warnings and precautions can be found at [email or web address] [email or web address]. Stool specimen (specimen) 08/25/2024 1:40 PM EDT 08/26/2024 12:24 PM EDT Gracy Reynolds MD LAB MOLECULAR DIAGNOSTICS ORDERA BLES Final Result [facility] (CLIA #:[id number]) [address] [place] [place] [address], * BI Mammogram Screening Tomosynthesis Bilateral (06/30/2024 7:45 AM EST) Anatomical Region Laterality Modality Breast Bilateral Mammography 06/30/2024 7:45 AM EST Narrative 07/09/2024 1:45 PM EST [place] [address] Mammography Report Signed Patient: Alison Munoz MR#: [id number] 81 : 1970 Acct:[id number] Age/Sex: 54 / F ADM Date: 06/30/24 Loc: HO.MRI Attending Dr: Gracy Reynolds MD Ordering Physician: Gracy Reynolds MD Results: 2Benign F indings Date of Service: 06/30/24 Follow Up: 1 Year From Orig inal Mammogram Procedure(s): MM tomosynthesis screening BI Accession Number(s): [id number] cc: Gracy Reynolds MD EXAMINATION: MM SCREENING [...] 07/09/24 1342 DD/ 0745 TD/TT: 06/30/24 0800 Crater And Packer: Procedure Note Donotuseinterpreter, Image - 07/09/[address] [address] Mammography Report Signed Patient: Alison MunozMR#: [id number] 81 : 1970Acct:[id number] Age/Sex: 54 / FADM Date: 06/30/24 Loc: HO.MRI Attending Dr: Gracy Reynolds MD Ordering Physician: Gracy Reynolds MDResults: 2Benign F indings Date of Service: 06/30/24Follow Up: 1 Year From Orig [facility] Mammogram Procedure(s): MM tomosynthesis screening BI Accession Number(s): [id number] cc: Gracy Reynolds MD EXAMINATION: MM SCREENING [...] 07/09/24 1342 DD/ 0745 TD/TT: 06/30/24 0800 Crater [employer] Packer: Gracy Reynolds MD IMG BI PROCEDURES Edited Result - Final * Hepatitis C Antibody with Reflex to HCV, RNA, Quantitative, Real-Time PCR (11/16/2023 9:51 AM EDT) Hepatitis C Antibody Nonreactive Nonreactive [facility] Comment:Antibodies to HCV no t detected; does not exclude early acuteHCV infection. Blood Venous blood specimen / Unknown 11/16/2023 9:51 AM EDT 11/16/2023 11:48 AM EDT Gracy Reynolds MD LAB BLOOD ORDERABLES Final Resul t [facility] [address] [place] [address] [phone] * HIV-1/2 Antigen and Antibodies, Fourth Generation, with Reflexes (11/16/2023 9:51 AM EDT) HIV AB/AG Nonreactive Nonreactive [facility] Comment:HIV-1 p24 Ag and/or HIV-1/HIV-2 Ab not detected.A test result that is nonreactive does not exclude thepossibility of exposure to or infection with HIV-1 and/orHIV-2. Nonreactive results in this assay for individualswith prior exposure to HIV-1 and/or HIV-2 may be due toantigen and antibody levels that are below the limit ofdetection of this assay.The [id number] HIV Ag/Ab Combo assay result andsupplemental assay results should be interpreted inconjunction with the patient's clinical presentation,history and other laboratory results. If the results areinconsistent with clinical evidence, additional testing issuggested to confirm the result. Blood Venous blood specimen / Unknown 11/16/2023 9:51 AM EDT 11/16/2023 11:48 AM EDT Gracy Reynolds MD LAB BLOOD ORDERABLES Final Resul t [facility] [address] [place] [phone] * Pap Smear (02/08/2023) Pap Negative for intraephithelial lesion or malignancy Negative for intraephithelial lesion or malignancy, Other HPV Undetected Undetected, Indeterminate, Quantitative, Not Detected Historical Provider HEALTH MAINTENANCE Final Result from Last 3 Months or Most Recently Relevant to Health Maintenance Insurance [facility] STANDARD [facility] DUAL COMPLETE Care Teams Cpr Instructor Relationship Specialty Start Date End Date Gracy Reynolds MD [address] [place] [id number] PCP - General Family Medicine 01/27/22 Osmel Conn Library AideControl Specialist 01/04/24
--- OUTSIDE RECORDS SUMMARY | 2025-02-26 21:06 | XMS_ITS | Encounter Summary ---
Author Organization [employer] Address [address] [facility] [address] [place] [address] Care Team Providers Care Treasury Specialist Name Role Phone Gracy Reynolds MD Primary Care Provider [phone] Encounter Details Date Type Department Care Team ([facility] Contact Info) Description 12/03/2022 Orders Only [facility] MEDICINE [address] [place], [place] [phone] Jana Hooks LPN Social History Tobacco Use [...] documented as of this encounter Care Teams Treasury Specialist Relationship Specialty Start Date End Date Gracy Reynolds MD [address] [place], [place] [phone] PCP - General Family Medicine 01/27/22 Osmel Conn Truck LoaderDirector Of Instrumental Music 01/04/24 documented as of this encounter
--- OUTSIDE RECORDS SUMMARY | 2025-02-26 21:06 | XMS_ITS | Encounter Summary ---
Author Organization [employer] Address [address] [facility] [address] [place] [address] Care Team Providers Care Pattern Cutter Name Role Phone Gracy Reynolds MD Primary Care Provider [phone] Reason for Visit * Reason Onset Date Comments Letter for School/Work 10/05/2022 Encounter Details Date Type Department Care Team ([facility] st Contact Info) Description 10/05/2022 Telephone [facility] [address] [place], [place] [phone] Gracy Reynolds MD [address] [place], [place] [phone] Letter for School/Work Social History Tobacco Use [...] end of September. Please contact pt at [phone] documented in this encounter Plan of Treatment Not on file documented as of this encounter Visit Diagnoses Not on filedocumented in this encounter Additional Health Concerns Assessment Noted Time PHQ-9 Depression Total Score: 17 023 3:11 PM EDT documented as of this encounter Care Teams Pattern Cutter Relationship Specialty Start Date End Date Gracy Reynolds MD [address] [place] [address] PCP - General Family Medicine 01/27/22 Osmel Conn Care AidCooking Instructor 01/04/24 documented as of this encounter
--- OUTSIDE RECORDS SUMMARY | 2025-02-26 21:06 | XMS_ITS | Clinical Summary ---
Author Organization [facility] Address [address] [address] Phone Care Team Providers Care Broadcast Operations Manager Name Role Phone Osmel Mandel MD Unavailable [phone] Pcp, Unknown Primary Care Provider Unavailabl e Allergies Active Allergy Reactions Criticality Noted Date Comments Fish Derived 03/10/2022 Other reaction(s): itching, swelling Shellfish Containing Products 02/17/2019 Medications albuterol (ACCUNEB) 0.63 mg/3 mL nebulizer solution Take 1 ampule by nebulization every 6 (six) hours as needed for wheezing. Active lidocaine (LMX 4) 4 % cream Apply topically 3 (three) times a day. 45 g 5 1 Active albuterol 90 mcg/actuation inhaler Inhale 2 puffs into the lungs every 6 (six) hours as needed. 3 Inhaler 3 1 Active fluticasone propionate (FLOVENT HFA) 110 mcg/actuation inhaler Take 2 puffs by mouth 2 (two) times a day. 1 Inhaler 11 1 Active clindamycin (CLEOCIN T) 1 % lotionIndication s:Superficial inflammatory acne vulgaris Apply topically 2 (two) times a day. 60 mL 5 1 Active benzoyl peroxide 5 % topical cleanserIndicati ons:Superficial inflammatory acne vulgaris Apply topically daily. 227 g 5 1 Active cholecalciferol (VITAMIN D3) 25 MCG (1,000 unit) tablet TAKE 1 TABLET BY MOUTH EVERY DAY 90 tablet 3 1 Active diclofenac sodium (VOLTAREN) 1 % GelIndications:L eft elbow pain APPLY 4 G TOPICALLY 4 (FOUR) TIMES A DAY. FOR LEFT ELBOW PAIN 100 g 5 1 Active montelukast (SINGULAIR) 10 mg tablet TAKE 1 TABLET BY MOUTH EVERYDAY AT BEDTIME 90 tablet 3 1 Active DULoxetine (CYMBALTA) 60 MG capsuleIndicatio ns:Anxiety Take 1 capsule (60 mg total) by mouth daily. 90 capsule 1 2 Active lidocaine (LIDODERM) 5 %Indications:Lef t elbow pain PLACE 1 PATCH ONTO THE SKIN DAILY. REMOVE & DISCARD PATCH WITHIN 12 HOURS OR DIRECTED BY 30 patch 5 2 Active lidocaine-priloc clarissa (EMLA) cream APPLY TO AFFECTED AREA TWICE A DAY NEEDED 60 g 2 Active Additional Information Patient not taking.Reported on 10/27/2021 gabapentin (NEURONTIN) 100 MG capsule Take 1 capsule (100 mg total) by mouth 3 (three) times a day. 30 capsule 2 2 Active Active Problems Problem Noted Date Diagnosed Date Encounter for routine adult health examination with abnormal findings 09/06/2021 Assessment & Plan (09/06/2021 10:00 AM EDT): Pap: due. Nil/HPV- in 2015. She will schedule separate apt for this Mammogram: ordered Colon cancer screen: deferred at this time. Will revisit at next CPE Labs: cbc/cmp/a1c/lipids/tsh ordered Immunizations: tdap given today. Had ppsv23 previously. utd on flu and covid-19 vaccines Follow up annually for CPE Cervical radiculopathy 08/10/2021 Assessment & Plan (09/06/2021 10:02 AM EDT): Chronic with recent worsening.Experiencing shooting type pain [...] up for full effect Assessment & Plan (08/10/2021 2:20 PM EST): Experiencing shooting type pain starting from the neck and radiating into b/l UE. Had previous EMG that was normal but based on her imaging findings and her history I question if this was possible a false negative. -would like to repeat MRI since pain and motor function have worsened in the past 2 years with plan to refer to neurosurgery pending those results Superficial inflammatory acne vulgaris Assessment & Plan (06/05/2021 7:03 AM EST): Chronic with recent worsening. Could not use retinol cream due to harsh effect on skin. 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 Had been feeling better for a time. Has seen orthopedics and rheumatology for this -continue lodine 400mg BID -continue lidocaine cream prn -she will get new wrist brace and encouraged wearing as much as possible for the next few days to a week -follow up if no improvement Assessment & Plan (12/30/2019 3:35 PM EDT): Having bilateral wrist and thumb pain. Per pt, rheumatology thought it may be due to arthritis. 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 Discomfort she has been having is atypical for cardiac pain. She had venous doppler done last week at [facility] and will be following up with her beater worker helper next week -will request u/s records -encouraged her to discuss w/ her beater worker helper and determine if they would like to reorder a holter and/or echo. -go to ED for any severe chest pain in the interim and she voices understanding Breast pain 12/17/2019 Assessment & Plan (12/30/2019 3:32 PM EDT): Breast exam is normal, no skin changes, no lumps/masses or nipple discharge or inversion. Had benign stereotactic biopsy in this spot about 10 months ago -will proceed with diagnostic mammo at this time for the continued pain. She would like to transition to [facility] for mammograms so will order that today Assessment & Plan (12/17/2019 5:00 PM EDT): Breast exam is normal today, no skin changes, no lumps/masses or nipple discharge or inversion. Had benign stereotactic biopsy in this spot about 10 months ago and is scheduled for repeat mammogram in the next 2 months. Would like her to continue to monitor and if she notes any new/worsening symptoms will see if we can move up the date for her mammogram and she agrees with this plan Degenerative disc disease, cervical 09/28/2019 Assessment & Plan (09/06/2021 10:03 AM EDT): Chronic with recent worsening of her neck pain. Now having severe functional limitations. -Recommend neurosurgery consult given recent MRI findings and she agrees. Scheduled with Dr. Ramsey for consult in October Assessment & Plan (08/10/2021 2:17 PM EST): Chronic with recent worsening of her neck pain. Now having severe functional limitations. Previous MRI c-spine done >2 years ago showed mild central canal stenosis at several levels as well as grade 1 spondylolisthesis at c4-5 and right neural foraminal narrowing at c4-5 and c5-6. Radiologist at the time felt this could be cause of her radicular pain. Repeat XR done in February 2021 shows severe/progressive right neural foraminal narrowing at C4-C5. -will proceed with repeat MRI to further evaluate given the worsening of her neck and suspected radicular pain she is experiencing -Recommend neurosurgery consult pending the results of the MRI and she agrees. Will contact to review those results and make further recommendations. Assessment & Plan (06/05/2021 7:01 AM EST): MRI c-spine showing mild central canal stenosis as well as grade 1 spondylolisthesis at c4-5 and right neural foraminal narrowing at c4-5 and c5-6. -continue PT -continue lodine 400mg BID and cymbalta 60mg daily -has appointment now with [facility]. Discussed injections will likely be next option for mgmt of her pain Assessment & Plan (07/04/2020 1:40 PM EST): MRI c-spine showing mild central canal stenosis as well as grade 1 spondylolisthesis at c4-5 and right neural foraminal narrowing at c4-5 and c5-6. -continue PT -continue lodine 400mg BID and cymbalta 60mg daily -will place referral to [facility] to discuss other options for pain mgmt Assessment & Plan (03/29/2020 1:12 PM EDT): MRI c-spine showing mild central canal stenosis as well as grade 1 spondylolisthesis at c4-5 and right neural foraminal narrowing at c4-5 and c5-6. Discussed would like to get EMG to determine if pain in her UE may be related to these findings -referral to neurology for EMG -discussed if pain in hands seems to be correlated with EMG findings then I would want her to get scheduled with [facility] for a consult and if not then would try and get her in with Dr. Bustos for consult re: hand pain and she agrees with this plan -will try and find someone that accepts her insurance for accupuncture -she will start PT for the ongoing neck pain Assessment & Plan (12/30/2019 3:32 PM EDT): She would like to do a trial of PT, chiropractor and acupuncture for the next 4- 6 weeks Acute pain of both knees 09/28/2019 Acute bilateral low back pain without sciatica 0 09/28/2019 Vitamin D deficiency 09/28/2019 Anxiety 09/13/2019 Assessment & Plan (05/06/2021 2:08 PM EST): This patient definitely has anxiety which she is controlling well unfortunately one of her sons of a severe asthma attack which she is grieving over Assessment & Plan (02/24/2021 10:28 AM EDT): This is definitely at play here but she seems to be with good control of it Assessment & Plan (12/30/2019 3:36 PM EDT): Improved since starting cymbalta 30mg daily. Chronic pain continues to be an issue - will continue with therapy -encouraged consistency and she is going to try and take this every day for the next 4-6 weeks. May consider dose increase at that time if no further improvement Assessment & Plan (12/17/2019 4:58 PM EDT): Improved since starting cymbalta 30mg daily. Chronic pain continues to be an issue -will check labs - will continue with therapy -trial of increasing cymbalta to 60mg. -follow up in 2-3 weeks for recheck. Has apt.with rheum the same day -if no improvement may refer to hand specialist for the thumb pain Assessment & Plan (10/19/2019 10:27 AM EDT): Improved since starting cymbalta 30mg daily. - will continue with therapy -continue cymbalta 30mg. Will send new #90 day script. -follow up in 3 months, hopefully in office for annual physical or sooner if any concerns Assessment & Plan (09/13/2019 9:37 AM EDT): Currently uncontrolled. Has been following with therapist for >1 year and will continue with therapy but would like to start medication as she had good effect with this in the past. -would like to do trial of starting cymbalta to try and target anxiety as well as chronic pain -start cymbalta 30mg daily -I've explained to patient that drugs of the SNRI class can potentially cause side effects such as weight gain, sexual dysfunction, insomnia, headache, nausea. I've made patient aware of the Black Box Warning associated with these medications and the importance of discontinuing medication and contacting our office if there are any concerns regarding increased thoughts of suicide. -explained she should take medicine every day and that it typically takes 4-8 weeks before most patients notice significant improvement -will call in 2 weeks to follow up but encouraged her to call sooner if any concerns in the interim and she agrees Bereavement 08/16/2019 Assessment & Plan (08/16/2019 9:31 AM EST): Currently following with therapist at [facility] following the passing of her eldest son last spring. suddenly -encouraged continuing to follow with therapy and she is going to look into pain support group as well Palpitations 08/16/2019 Assessment & Plan (10/27/2021 12:49 PM EDT): Basically gone at this time she had a full work-up showing only rare PACs and PVCs Assessment & Plan (05/06/2021 2:08 PM EST): Basically noncardiac nothing showed as an arrhythmia despite her reporting symptoms on the monitor Assessment & Plan (02/24/2021 10:27 AM EDT): As mentioned we are going to order her an event monitor I will see her thereafter in follow-up Assessment & Plan (08/16/2019 9:21 AM EST): Continues to follow with cardiology -she will call back with clinic information so we can obtain records Abnormal finding on breast imaging 08/16/2019 Overview (09/13/2019): Stereotactic biopsy on 02/22/2019-benign findings, recommended annual screening mammogram Assessment & Plan (08/16/2019 9:30 AM EST): Underwent stereotactic bx about 1.5 years ago at [facility]. Scheduled for upcoming mammogram, reports some chronic right breast pain as well. -will have her call back with date of her mammogram, will plan to change order to diagnostic w/ u/s to better evaluate the pain, no palpable abnormalities. Lyme disease Overview (08/16/2019): diagnosed in 2011. Assessment & Plan (10/27/2021 12:49 PM EDT): This patient has had Lyme disease diagnosed over 10 years ago Assessment & Plan (08/16/2019 9:21 AM EST): Polyarthralgia following lyme disease in 2011. -restart PT as previously scheduled -will refer to rheumatology, may benefit from further evaluation, joint injections and/or medications. cymbalta may be considered. Records from previous provider have been requested to determine what she has already tried. Asthma Assessment & Plan (05/06/2021 2:07 PM EST): This patient has severe asthma which is currently stable. Assessment & Plan (08/16/2019 9:21 AM EST): Had PFTs done recently at [facility] and she will provide a copy of those results. -continue singulair 10mg daily and flovent BID Immunizations Immunization Administration Dates Next Due COVID-19 (Pre-04/05) Moderna Vaccine, mRNA, PF 0 10/23/2020,09/25/2020 INFLUENZA, SPLIT VIRUS, TRIVALENT W/ PRESERVATIV E IM 03/31/2011,12/08/2009 Influenza Quadrivalent Preservative Free IM 02/13,05/03/2020 Influenza Split (Incl. Purified Surface Antigen) 05/04/2013 Influenza, Unspecified Formulation 03/09/2019 Pneumococcal polysaccharide PPSV23 01/14/2010 Td (adult),2 Lf Tetanus Toxoid, PF, Adsorbed Tdap 09/05/2021,07/10/2011 Family History Medical History Relation Comments Asthma Father Heart attack Father Cancer Maternal Grandfather Hypertension Mother Breast cancer Neg Hx Relation Status Comments Father Maternal Grandfather Maternal Grandmother Mother Alive Paternal Grandfather Paternal Grandmother Social History Tobacco Use Types Packs/Day Years Used Date Smoking Tobacco: Never Smokeless Tobacco: Never Alcohol Use Standard Drinks/Week Comments Yes 0 (1 standard drink = 0.6 oz pur e alcohol) occasionally Child or Family Care Answer Date Record ed Do you have problems with on e of the following making it difficult for you to work, study, or receive health care? No 09/04/2021 Education Answer Date Recorded Are you interested in more education? Not on dieudonne e 09/07/2023 Are you concerned about learning? Not on file 09/07/2023 No 09/07/2023 No 09/07/2023 Food Answer Date Recorded Within the past 6 months we worried whether our food would run out before we got money to buy more. Never True 09/04/2021 Within the past 6 months the food we bought just didn't last and we didn't have enough money to get more. Never True Residential Stability Answer Date Recor ded What is your housing situation today? I have francy hernandez 09/04/2021 How many times have you move d in the past 12 months? Zero (I did not move) 09/04/2021 06 Are you worried that in t he next 2 months, you may not have your own housing to live in? No 09/04/2021 Paying for Meds Answer Date Recorded Do you have trouble paying for medicines? No 09/04/2021 Paying Utility Bills Answer Date Record ed Do you have trouble paying your heating or elect ricity bill? No 09/04/2021 Transportation Answer Date Recorded Has the lack of transportati on kept you from medical appointments or from getting medications? No 09/04/2021 Unemployment Answer Date Recorded Are you currently unemployed or working on a part-time or temporary basis, and looking for work? I choose not to answer 09/04/2021 Digital Access Answer Date Recorded No 11/07/2022 No 11/07/2022 Reliable internet access at home? Not on file 11/07/2022 Device with a working camera? Not on file Comments No Sex and Gender Information Value Date Recorded Sex Assigned at Female 08/03/2019 4:29 PM EST Legal Sex Female 4:12 PM EDT Gender Identity Female 08/03/2019 4:29 PM EST Sexual Orientation Straight 08/03/2019 4: 29 PM EST Last Filed Vital Signs Vital Sign Reading Time Taken Comments Blood Pressure 132/80 03/10/2022 7:58 PM EDT Pulse 61 03/10/2022 7:58 PM EDT Temperature 36.8 C (98.2 F) 03/10/2022 7:58 PM EDT Respiratory Rate 15 03/10/2022 7:58 PM EDT Oxygen Saturation 100% 03/10/2022 7:58 PM EDT Inhaled Oxygen Concentration - - Weight 71.7 kg (158 lb) 10/27/2021 12:33 PM EDT Height 167.2 cm (5' 5.83 ) 10/27/2021 12:33 PM E DT Body Mass Index 25.64 10/27/2021 12:33 PM EDT Plan of Treatment Health Maintenance Due Date Last Done Comments PNEUMOCOCCAL VACCINES (50+ years) (2 of 2 - PCV) 01/14/2011 01/14/2010 COLOGUARD 2017 COLONOSCOPY 2017 COLORECTAL CANCER SCREENING 2017 FIT TEST 2017 FOBT 2017 SIGMOIDOSCOPY 2017 VIRTUAL COLONOSCOPY 2017 PAP SMEAR 04/14/2021 04/14/2016 ZOSTER VACCINES (1 of 2) 2022 DEPRESSION SCREENING 09/04/2022 09/04/2021, 09/05/19 22 MAMMOGRAM 09/30/2023 09/29/2021, 03/0 02/2020, 02/15/2019, Additional history exists INFLUENZA VACCINE (#1) 2025 , 05/03/2020, 03/09/2019, Additional history exists COVID-19 VACCINE ( season) 2025 05/22/2021, 10/23/2020, 09/25/2020 LIPID PANEL 09/10/2026 09/10/2021, 03/3 , 12/14/2019, Additional history exists Adult Td,Tdap Booster 09/06/2031 09/05/2021 , 07/10/2011, 08/24/2008 HEPATITIS C SCREENING Completed 07/16/2018 HIV ONE-TIME SCREENING (18-65 YEARS) Completed 07/16/2018 SMOKING STATUS SCREENING (Once After 26 Yrs) Completed 10/27/2021 HEPATITIS A VACCINES Aged Out No long er eligible based on patient's age to complete this topic HIB VACCINES Aged Out No longer eligi ble based on patient's age to complete this topic MENINGOCOCCAL VACCINES (ACWY) Aged Out No longer eligible based on patient's age to complete this topic MENINGOCOCCAL VACCINES (B) Aged Out N o longer eligible based on patient's age to complete this topic Medical Devices Not on file Procedures Procedure Name Priority Date/Time Associated Diagnosis Comments BI MAMMOGRAM SCREENING WITH TOMOSYNTHESIS WITH CAD (BILATERAL) Routine 09/29/2021 1:00 PM EDT Encounter for routine adult health examination with abnormal findings LIPID PANEL Routine 09/10/2021 8:12 AM EDT Encounter for routine adult health examination with abnormal findings OUTSIDE HIV Routine 07/16/2018 HM PAP SMEAR FOR RESULT ENTRY ONLY Routine 04/14/2016 from Last 3 Months or Most Recently Relevant to Health Maintenance Results * (ABNORMAL) BI MAMMOGRAM SCREENING WITH TOMOSYNTHESIS WITH CAD (BILATERAL) (09/29/2021 1:00 PM EDT) Anatomical Region Laterality Modality Breast Left, Breast Right, Breast Bilateral Bila teral Mammography 09/29/2021 4:08 PM EDT Impressions 09/29/2021 4:12 PM EDT Recommend recalling the patient for a left breast asymmetry which may represent superimposed tissue. Radiology department will attempt to recall the patient. Recall views: Spot compression left MLO review. Left ML view. Ultrasound if concern. BI-RADS CATEGORY: 0 - Incomplete. Need additional imaging evaluation. DENSITY: The breast tissue is heterogeneously dense, which could obscure a lesion on mammography. LEFT RECOMMENDATION DUE DATE: 1 Month Left Additional Imaging RIGHT RECOMMENDATION DUE DATE: 12 Months Right Mammography Screening Narrative 09/29/2021 4:12 PM EDT 51-year-old female with no current breast symptoms. Comparison made to previous on 01/09/2020 and as far back as 09/30/2017. Interpretation made in conjunction with computer-aided detection and tomosynthesis. The breasts are heterogeneously dense, which may obscure small masses. Stable right breast biopsy markers. There is a new asymmetric density in the central left breast on MLO view. There are no suspicious masses, areas of architectural distortion, or suspicious clusters of microcalcifications. Nancy SIGALA IMG MG EXAMS Final Result * (ABNORMAL) Lipid panel (09/10/2021 8:12 AM EDT) HDL 55 mg/dL [facility] Comment: Interpretation <40 mg/dL: Low HDL cholesterol (major risk factor for CHD) Greater than or equal to 60 mg/dL: High HDL cholesterol ( negative risk factor for CHD) HDL - cholesterol is affected by a number of factors, e.g. smoking, excerise, hormones, sex and age. CHOLESTEROL 141 0 - 240 mg/dL [facility] TRIGLYCERIDES 48 30 - 160 mg/dL [facility] LDL 76 50 - 129 mg/dL [facility] Comment: LDL levels in terms of risk for coronary heart disease: <100 mg/dL: Optimal 100-129 mg/dL: Near or above optimal 130-159 mg/dL: Borderline high 160-189 mg/dL: High >190 mg/dL: Very High CARDIAC RISK RATIO 2.6(L) 3.3 - 4.4 C [facility] Blood 09/10/2021 8:12 AM EDT 09/10/2021 8:21 AM EDT Nancy SIGALA LAB BLOOD ORDERABLES Final Result [facility] [address] [place] [address] * OUTSIDE HIV TEST (07/16/2018) HIV - External Neg Historical Provider LAB BLOOD ORDERABLES Bing l Result * HM PAP SMEAR FOR RESULT ENTRY ONLY (04/14/2016) Pap smear neg/hpv neg us Historical Provider MD HEALTH MAINTENANCE Final Result from Last 3 Months or Most Recently Relevant to Health Maintenance Insurance C[employer] Care Teams Broadcast Operations Manager Relationship Specialty Start Date End Date Pcp, Unknown PCP - General 01/29/22 Osmel Mandel MD [address] [place] [address], [address] [place] [address] [email or web address] Insurance Assigned Provider Internal Medicine 09/15/19 Additional Source Comments The information contained in this document represents components of the legal health record. It is not the complete legal health record.[facility]
--- OUTSIDE RECORDS SUMMARY | 2025-02-26 21:06 | XMS_ITS | Encounter Summary ---
Author Organization [employer] Address [address] [place] [address] Care Team Providers Care Developing Machine Operator Name Role Phone Gracy Reynolds MD Primary Care Provider [phone] Reason for Visit * Reason Onset Date Comments call return 09/16/2022 Encounter Details Date Type Department Care Team ([facility] st Contact Info) Description 09/16/2022 Telephone [facility] MEDICINE [address] [place], [place] [phone] Gracy Reynolds MD [address] [place], [place] [phone] call return Social History Tobacco Use Types [...] Miscellaneous Notes * Telephone Encounter - Carlito Mendiolarero - 09/16/2022 10:54 AM EDT Tc from pt returning phone call. Pt states a call from the clinic was made but commercial insurance underwriter does not see any task of call. Please contact pt at [phone] documented in this encounter Plan of Treatment Not on file documented as of this encounter Visit Diagnoses Not on filedocumented in this encounter Additional Health Concerns Assessment Noted Time PHQ-9 Depression Total Score: 17 023 3:11 PM EDT documented as of this encounter Care Teams Developing Machine Operator Relationship Specialty Start Date End Date Gracy Reynolds MD [address] [place] [address] PCP - General Family Medicine 01/27/22 Osmel Conn CorsetierPretzel Twisting Machine Operator 01/04/24 documented as of this encounter
--- OUTSIDE RECORDS SUMMARY | 2025-02-26 21:06 | XMS_ITS | Encounter Summary ---
Author Organization [employer] Address [address] [place] [address] Care Team Providers Care Soccer Coach Name Role Phone Gracy Reynolds MD Primary Care Provider [phone] Encounter Details Date Type Department Care Team ([facility] st Contact Info) Description 02/20/[address] [facility] MEDICINE [address] [place], [place] [phone] Gracy Reynolds MD [address] [place], [place] [phone] Social History Tobacco Use Types Packs/Day Years [...] documented as of this encounter Care Teams Soccer Coach Relationship Specialty Start Date End Date Gracy Reynolds MD [address] [place] [id number] PCP - General Family Medicine 01/27/22 Osmel Conn Journeyman Press OperatorConfidential Secretary 01/04/24 documented as of this encounter
--- OUTSIDE RECORDS SUMMARY | 2025-02-26 21:06 | XMS_ITS | Encounter Summary ---
Author Organization [facility] Address [address] [facility] [address] [place] [phone] Phone Care Team Providers Care Degreasing Solution Reclaimer Name Role Phone Nancy Woodward Primary Care Provide r Osmel Mandel MD Unavailable [phone] Mendez Villanueva MD Unavailable [phone] Rufino Varela MD Unavailable [phone] Brianna Kulkarni MD Unavailable [phone] Harriett Butler MD Primary Care Provid er Pcp, Unknown Primary Care Provider Unavailabl e Encounter Details Date Type Department Care Team (Late st Contact Info) Description 09/07/2019 Ancillary Orders [facility],Outside Imaging [address] [place] [address] System, Provider Not In, PhD [address] [address] Social History Tobacco Use Types Packs/Day Years Used Date Smoking Tobacco: Never Smokeless Tobacco: Never Alcohol Use Standard Drinks/Week Comments Not Currently 0 (1 standard drink = 0.6 oz pur e alcohol) Child or Family Care Answer Date Record ed Do you have problems with on e of the following making it difficult for you to work, study, or receive health care? No 08/16/2019 Education Answer Date Recorded Are you interested in help w ith more adult education (for example, completing high school, GED, job training, learning the Azeri language, technical skills, or developing parenting skills)? [...] or from getting medications? No 08/16/2019 Comments Unknown Sex and Gender Information Value Date Recorded Sex Assigned at Female 08/03/2019 4:29 PM EST Legal Sex Female 4:12 PM EDT Gender Identity Female 08/03/2019 4:29 PM EST Sexual Orientation Straight 08/03/2019 4: 29 PM EST documented as of this encounter Plan of Treatment Not on file documented as of this encounter Results * Mammogram Outside (No Interpretation) (08/21/2019 12:05 AM EDT) Narrative SYSTEMGENERATED, DOCUMENTATION - 09/07/2019 11:11 AM EDT This study is for PACS storage only and not for interpretation. us Provider Not In System PhD IMG OUTSIDE IMAGING W /OUT INTERPRETATION Final Result * US Breast Outside (No Interpretation) (08/21/2019 12:00 AM EDT) Narrative SYSTEMGENERATED, DOCUMENTATION - 09/07/2019 11:10 AM EDT This study is for PACS storage only and not for interpretation. us Provider Not In System PhD IMG OUTSIDE IMAGING W /OUT INTERPRETATION Final Result * Mammogram Outside (No Interpretation) (02/15/2019 12:00 AM EDT) Narrative SYSTEMGENERATED, DOCUMENTATION - 09/07/2019 11:06 AM EDT This study is for PACS storage only and not for interpretation. us Provider Not In System PhD IMG OUTSIDE IMAGING W /OUT INTERPRETATION Final Result * US Breast Outside (No Interpretation) (01/26/2019 12:05 AM EDT) Narrative SYSTEMGENERATED, DOCUMENTATION - 09/07/2019 11:07 AM EDT This study is for PACS storage only and not for interpretation. us Provider Not In System PhD IMG OUTSIDE IMAGING W /OUT INTERPRETATION Final Result * Mammogram Outside (No Interpretation) (01/26/2019 12:00 AM EDT) Narrative SYSTEMGENERATED, DOCUMENTATION - 09/07/2019 11:06 AM EDT This study is for PACS storage only and not for interpretation. us Provider Not In System PhD IMG OUTSIDE IMAGING W /OUT INTERPRETATION Final Result * Mammogram Outside (No Interpretation) (07/29/2018 12:05 AM EST) Narrative SYSTEMGENERATED, DOCUMENTATION - 09/07/2019 11:09 AM EDT This study is for PACS storage only and not for interpretation. us Provider Not In System PhD IMG OUTSIDE IMAGING W /OUT INTERPRETATION Final Result * US Breast Outside (No Interpretation) (07/29/2018 12:00 AM EST) Narrative SYSTEMGENERATED, DOCUMENTATION - 09/07/2019 11:08 AM EDT This study is for PACS storage only and not for interpretation. us Provider Not In System PhD IMG OUTSIDE IMAGING W /OUT INTERPRETATION Final Result * Mammogram Outside (No Interpretation) (07/21/2018 12:05 AM EST) Narrative SYSTEMGENERATED, DOCUMENTATION - 09/07/2019 11:10 AM EDT This study is for PACS storage only and not for interpretation. us Provider Not In System PhD IMG OUTSIDE IMAGING W /OUT INTERPRETATION Final Result * US Breast Outside (No Interpretation) (07/21/2018 12:00 AM EST) Narrative SYSTEMGENERATED, DOCUMENTATION - 09/07/2019 11:09 AM EDT This study is for PACS storage only and not for interpretation. us Provider Not In System PhD IMG OUTSIDE IMAGING W /OUT INTERPRETATION Final Result * Mammogram Outside (No Interpretation) (09/30/2017 12:00 AM EDT) Narrative SYSTEMGENERATED, DOCUMENTATION - 09/07/2019 11:07 AM EDT This study is for PACS storage only and not for interpretation. us Provider Not In System PhD IMG OUTSIDE IMAGING W /OUT INTERPRETATION Final Result documented in this encounter Visit Diagnoses Not on filedocumented in this encounter Additional Health Concerns Infection Onset Date Last Indicated Resolved Time CoV-Exposed Comment:Recent close contact documented in the COVID-19 PCR/PRO order 02/06/2021 02/11/2021 03/03/2021 1:21 AM E DT CoV-Risk 02/11/2021 02/12/2021 02/22/2021 1:24 AM EDT documented as of this encounter Care Teams Degreasing Solution Reclaimer Relationship Specialty Start Date End Date Nancy Woodward PA [address] [place] [address] [email or web address] PCP - General 08/03/19 11/23/21 Harriett Butler MD [address] [place] [address] [place] [address] [email or web address] PCP - General Family Medicine 11/24/21 01/28/22 Pcp, Unknown PCP - General 01/29/22 Osmel Mandel MD [address] [place] [address], [address] [place] [address] [email or web address] Insurance Assigned Provider Internal Medicine 09/15/19 Mendez Villanueva MD [address] [place] [address], [address] [place] [address] [email or web address] Insurance Assigned Provider 02/22/21 04/19/21 Rufino Varela MD [address] [place] [address], [address] [place] [address] Insurance Assigned Provider 04/19/21 07/20/21 Brianna Kulkarni MD [address] [place] [address], [address] [place] [address] Insurance Assigned Provider 07/20/21 06/20/22 documented as of this encounter Additional Source Comments The information contained in this document represents components of the legal health record. It is not the complete legal health record.[facility]
--- OUTSIDE RECORDS SUMMARY | 2025-02-26 21:07 | XMS_ITS | Encounter Summary ---
Author Organization [employer] Address [address] 7[address] [place] [address] Care Team Providers Care Stove Refinisher Name Role Phone Gracy Reynolds MD Primary Care Provider [phone] Encounter Details Date Type Department Care Team ([facility] st Contact Info) Description 07/07/2024 Orders Only [facility] MEDICINE [address] [place], [place] [phone] Gracy Reynolds MD [address] [place], [place] [phone] Social History Tobacco Use Types Packs/Day Years [...] documented as of this encounter Care Teams Stove Refinisher Relationship Specialty Start Date End Date Gracy Reynolds MD [address] [place] [address] PCP - General Family Medicine 01/27/22 Osmel Conn Electric Well Logging OperatorAir Conditioning Specialist 01/04/24 documented as of this encounter
--- OUTSIDE RECORDS SUMMARY | 2025-02-26 21:07 | XMS_ITS | Encounter Summary ---
Author Organization [employer] Address [address] [place] [address] 7t [place] [address] Care Team Providers Care Tubular Products Fabricator Name Role Phone Gracy Reynolds MD Primary Care Provider [phone] Reason for Referral * Consultation (Urgent) - Closed Specialty Diagnoses / Procedures Referred By Rogelio rogers Referred To Contact Gastroenterology Diagnoses Positive colorectal cancer screening using Cologuard test Gracy Reynolds MD [address] [place] [address] Phone: tel: fax: [facility] [address] [place] [address] 2nd Floor [place], [place] Phone: tel: fax: Referral ID Status Reason Start Date Expiration Date V isits Requested Visits Authorized [id number] Closed Specialty Services Required 08/31/2024 08/31/2025 1 1 Encounter Details Date Type Department Care Team (Late st Contact Info) Description 08/31/2024 Orders Only [facility] MEDICINE [address] [place], [place] [phone] Gracy Reynolds MD [address] [place], [place] [phone] Positive colorectal cancer screening using Cologuard test (Primary Dx) Social History Tobacco Use Types [...] as of this encounter Plan of Treatment Scheduled Referrals Name Type Priority Associated Diagnoses Order Schedule Referral to Gastroenterology Outpatient Referral Urgent Positive colorectal cancer screening using Cologuard test Expected: 08/31/2024 (Approximate), Expires: 08/31/2025 documented as of this encounter Visit Diagnoses Diagnosis Positive colorectal cancer screening using Cologuard test- Primary documented in this encounter Additional Health Concerns Assessment Noted Time PHQ-9 Depression Total Score: 7 08/17/19 25 11:33 AM EST documented as of this encounter Care Teams Tubular Products Fabricator Relationship Specialty Start Date End Date Gracy Reynolds MD [address] [place] [address] PCP - General Family Medicine 01/27/22 Osmel Conn Storm ChaserCompilation Clerk 01/04/24 documented as of this encounter
--- OUTSIDE RECORDS SUMMARY | 2025-02-26 21:07 | XMS_ITS | Encounter Summary ---
Author Organization [employer] Address [address] [facility] 7t [place] [address] Care Team Providers Care Athletic Shoe Designer Name Role Phone Gracy Reynolds MD Primary Care Provider [phone] Reason for Visit * Reason Comments Med Refill Encounter Details Date Type Department Care Team ([facility] st Contact Info) Description 07/27/2024 Refill [facility] MEDICINE [address] [place], [place] [phone] Gracy Reynolds MD [address] [place], [place] [phone] Onychomycosis Social History Tobacco Use Types Packs/Day [...] documented as of this encounter Care Teams Athletic Shoe Designer Relationship Specialty Start Date End Date Gracy Reynolds MD [address] [place] [address] PCP - General Family Medicine 01/27/22 Osmel Conn Manager LinuxNational Guard Member 01/04/24 documented as of this encounter
--- OUTSIDE RECORDS SUMMARY | 2025-02-26 21:07 | XMS_ITS | Encounter Summary ---
Author Organization [facility] Address [address] [address] Phone Care Team Providers Care Wind Field Service Manager Name Role Phone Nancy Woodward Primary Care Provide r Osmel Mandel MD Unavailable [phone] Mendez Villanueva MD Unavailable [phone] Rufino Varela MD Unavailable [phone] Brianna Kulkarni MD Unavailable [phone] Harriett Butler MD Primary Care Provid er Pcp, Unknown Primary Care Provider Unavailabl e Encounter Details Date Type Department Care Team (Late st Contact Info) Description 12/29/2019 Ancillary Orders [facility] Family Medicine [address] [place] [address] Nancy Woodward PA [address] [place] [address] [email or web address] Breast pain, right Social History Tobacco Use Types Packs/Day Years [...] high school, GED, job training, learning the Luxembourgish language, technical skills, or developing parenting skills)? [...] documented as of this encounter Results * BI US BREAST LIMITED (RIGHT) (01/09/2020 3:14 PM EDT) Anatomical Region Laterality Modality Breast Right, Breast Bilateral Right U ltrasound 01/09/2020 3:04 PM EDT Impressions 01/19/2020 2:30 PM EDT No mammographic or sonographic correlate to the area of pain. Further assessment should be based on the clinical impression as negative imaging does not exclude breast malignancy. Routine screening recommended as imaging follow-up. BI-RADS CATEGORY: 1 - Negative. DENSITY: There are scattered fibroglandular densities. Narrative 01/19/2020 2:30 PM EDT Full field digital CC and MLO views of the right breast are obtained with tomosynthesis as well as 2-D C view imaging. Study read in conjunction with computer aided detection. Comparison made to multiple prior, most recent August 21, 2019. Breast ultrasound is also obtained and reported here. Patient indicates an area of pain at the lower inner aspect. No mammographic correlate. No sonographic correlate subsequently. Markers from two percutaneous biopsies again noted. No dominant mass, distortion, or skin or nipple finding identified. There is a small amount of atherosclerotic change. Procedure Note Jolly Laura MD - 01/19/2020 Full field digital CC and MLO views of the right breast are obtained withtomosynthesis as well as 2-D C view imaging. Study read in conjunctionwith computer aided detection. Comparison made to multiple prior, mostrecent August 21, 2019. Breast ultrasound is also obtained and reportedhere. Patient indicates an area of pain at the lower inner aspect. Nomammographic correlate. No sonographic correlate subsequently. Markers from two percutaneous biopsies again noted. No dominant mass,distortion, or skin or nipple finding identified. There is a small amountof atherosclerotic change. IMPRESSION: No mammographic or sonographic correlate to the area of pain. Furtherassessment should be based on the clinical impression as negative imagingdoes not exclude breast malignancy. Routine screening recommended asimaging follow-up. BI-RADS CATEGORY: 1 - Negative. DENSITY: There are scattered fibroglandular densities. Nancy SIGALA IMG US BREAST Final Result documented in this encounter Visit Diagnoses Diagnosis Breast pain, right Breast pain, right documented in this encounter Additional Health Concerns Infection Onset Date Last Indicated Resolved Time CoV-Exposed Comment:Recent close contact documented in the COVID-19 PCR/PRO order 02/06/2021 02/11/2021 03/03/2021 1:21 AM E DT CoV-Risk 02/11/2021 02/12/2021 02/22/2021 1:24 AM EDT documented as of this encounter Care Teams Wind Field Service Manager Relationship Specialty Start Date End Date Nancy Woodward PA [address] [place] [address] [email or web address] PCP - General 08/03/19 11/23/21 Harriett Butler MD [address] [place] [address] [place] [address] [email or web address] PCP - General Family Medicine 11/24/21 01/28/22 Pcp, Unknown PCP - General 01/29/22 Osmel Mandel MD [address] [place] [address], [address] [place] [address] [email or web address] Insurance Assigned Provider Internal Medicine 09/15/19 Mendez Villanueva MD [address] [place] [address], [address] [place] [address] [email or web address] Insurance Assigned Provider 02/22/21 04/19/21 Rufino Varela MD [address] [place] [address], [address] [place] [address] Insurance Assigned Provider 04/19/21 07/20/21 Brianna Kulkarni MD [address] [place] [address], [address] [place] [address] [email or web address] Insurance Assigned Provider 07/20/21 06/20/22 documented as of this encounter Additional Source Comments The information contained in this document represents components of the legal health record. It is not the complete legal health record.[facility]
--- OUTSIDE RECORDS SUMMARY | 2025-02-26 21:07 | XMS_ITS | Encounter Summary ---
Author Organization [employer] Address [address] [place] [address] 7t [place] [address] Care Team Providers Care Truckload Owner Operator Name Role Phone Gracy Reynolds MD Primary Care Provider [phone] Reason for Referral * Consultation (Routine) - Closed Specialty Diagnoses / Procedures Referred By Rogelio rogers Referred To Contact Orthopaedic Surgery Diagnoses Chronic left shoulder pain Gracy Reynolds MD [address] [place] [address] Phone: tel: fax: [facility] [address] [place] [address] Phone: tel: Referral ID Status Reason Start Date Expiration Date V isits Requested Visits Authorized [id number] Closed Specialty Services Required 07/04/2024 07/04/2025 1 1 Encounter Details Date Type Department Care Team ([facility] st Contact Info) Description 07/04/2024 Orders Only [facility] MEDICINE [address] [place], [place] [phone] Gracy Reynolds MD [address] [place], [place] [phone] Chronic left shoulder pain (Primary Dx) Social [...] documented as of this encounter Care Teams Truckload Owner Operator Relationship Specialty Start Date End Date Gracy Reynolds MD [address] [place] [address] PCP - General Family Medicine 01/27/22 Osmel Conn BiometricianOverlock Hemmer 01/04/24 documented as of this encounter
--- OUTSIDE RECORDS SUMMARY | 2025-02-26 21:07 | XMS_ITS | Encounter Summary ---
Author Organization [employer] Address [address] [facility] 7t [place] [address] Care Team Providers Care Rn Lactation Consultant Name Role Phone Gracy Reynolds MD Primary Care Provider [phone] Reason for Visit * Reason Onset Date Comments Nurse Triage 07/04/2024 Encounter Details Date Type Department Care Team ([facility] st Contact Info) Description 07/04/2024 Telephone [facility] MEDICINE [address] [place], [place] [phone] Gracy Reynolds MD [address] [place], [place] [phone] Nurse Triage Social History Tobacco Use Types [...] the shoulder normally Please contact pt at [phone]. documented in this encounter Plan of Treatment Not on file documented as of this encounter Visit Diagnoses Not on filedocumented in this encounter Additional Health Concerns Assessment Noted Time PHQ-9 Depression Total Score: 0 11/16/19 24 9:15 AM EDT documented as of this encounter Care Teams Rn Lactation Consultant Relationship Specialty Start Date End Date Gracy Reynolds MD [address] [place] [address] PCP - General Family Medicine 01/27/22 Osmel Conn Boat Ride OperatorSite Reliability Engineer 01/04/24 documented as of this encounter
--- OUTSIDE RECORDS SUMMARY | 2025-02-26 21:07 | XMS_ITS | Encounter Summary ---
Author Organization [employer] Address [address] [facility] 7t [place] [address] Care Team Providers Care Compressor Assembler Name Role Phone Gracy Reynolds MD Primary Care Provider [phone] Reason for Visit * Reason Onset Date Comments Call Back Request 07/04/2024 Encounter Details Date Type Department Care Team ([facility] Contact Info) Description 07/04/2024 Telephone [facility] MEDICINE [address] [place], [place] [phone] Gracy Reynolds MD [address] [place], [place] [phone] Call Back Request Social History Tobacco Use [...] Miscellaneous Notes * Telephone Encounter - Ivelisse Colbert RN - 07/07/2024 10:55 AM EST Telephone [...] in Clinic or ED. Reviewed hours of [facility] and also on-call nurse at [facility]. Pt asked what can ED do [...] is sent. * Telephone Encounter - Ivelisse Colbert RN - 07/04/2024 1:58 PM EST Telephone [...] with plan. * Telephone Encounter - Ivelisse Colbert RN - 07/04/2024 12:32 PM EST ----- [...] PCP will be taken with her . [phone] documented in this encounter Plan of Treatment Not on file documented as of this encounter Visit Diagnoses Not on filedocumented in this encounter Additional Health Concerns Assessment Noted Time PHQ-9 Depression Total Score: 0 11/16/19 24 9:15 AM EDT documented as of this encounter Care Teams Compressor Assembler Relationship Specialty Start Date End Date Gracy Reynolds MD [address] [place] [address] PCP - General Family Medicine 01/27/22 Osmel Conn Industrial Hygiene EngineerBurn Table Operator 01/04/24 documented as of this encounter
--- OUTSIDE RECORDS SUMMARY | 2025-02-26 21:07 | XMS_ITS | Encounter Summary ---
Author Organization [facility] Address [address] [facility] [address] [place] [address] Phone Care Team Providers Care Grade Tamper Name Role Phone Nancy Woodward Primary Care Provide r Osmel Mandel MD Unavailable [phone] Brianna Kulkarni MD Unavailable [phone] Harriett Butler MD Primary Care Provid er Pcp, Unknown Primary Care Provider Unavailabl e Encounter Details Date Type Department Care Team (Late st Contact Info) Description 09/05/2021 Procedure Pass [facility] [place], [address] [address] Social History Tobacco Use Types Packs/Day Years [...] technical skills, or developing parenting skills)? No 09/04/2021 Food Answer Date Recorded Within the past [...] work? I choose not to answer 09/04/2021 Comments No Sex and Gender Information Value [...] Noted Time PHQ-9 Depression Total Score: 7 09/05/19 22 11:23 PM EDT PHQ-2 Depression Total Score: 4 09/05/19 22 11:23 PM EDT documented as of this encounter Care Teams Grade Tamper Relationship Specialty Start Date End Date Nancy Woodward PA [address] [place] [address] [email or web address] PCP - General 08/03/19 11/23/21 Harriett Butler MD [address] [place] [address] [email or web address] PCP - General Family Medicine 11/24/21 01/28/22 Pcp, Unknown PCP - General 01/29/22 Osmel Mandel MD [address] [place] [address], [address] [place] [address] [email or web address] Insurance Assigned Provider Internal Medicine 09/15/19 Brianna Kulkarni MD [address] [place] [address], [address] [place] [address] [email or web address] Insurance Assigned Provider 07/20/21 06/20/22 documented as of this encounter Additional Source Comments The information contained in this document represents components of the legal health record. It is not the complete legal health record.[facility]
== END 2025-02-26 16:40 | disposition home or self-care (01) ==
LOC: HO.HGI 15:45
PROVIDERS: PCP Family Medicine; Visit Provider Internal Medicine
DX: Z86.0100 Personal history of colon polyps, unspecified (principal); D64.9 Anemia, unspecified; R19.5 Other fecal abnormalities
CPT/HCPCS: 99213

== ENCOUNTER → 2025-02-26 15:45 | Outpatient (BNVA) | payer OTHER, SELFPAY | PROVIDERS: PCP Family Medicine; Visit Provider Internal Medicine | DX: Z71.2 Person consulting for explanation of examination or test findings (principal); R19.5 Other fecal abnormalities; D64.9 Anemia, unspecified; Z86.0100 Personal history of colon polyps, unspecified | CPT/HCPCS: 99212 ==